=== PATIENT | male | born 1945 | race Two or more races ===

== ENCOUNTER 2024-10-27 16:02 | Inpatient (IN) | payer MEDICARE, MEDICAID, SELFPAY ==
[2024-10-27] VITALS (41 sets, daily range): BP systolic 81–170; BP diastolic 49–101; PULSE 50–72; RESP 14–26; TEMP 34.7–35.4; O2SAT 96–100; BMI 20.3
[2024-10-27] MEDS: NALOXONE INJ 1 MG/ML SYRINGE 2 ML 2 MG (16:08)
[2024-10-27] MEDS: NALOXONE INJ 1 MG/ML SYRINGE 2 ML 2 MG IV ×2 (16:10→16:14)
[2024-10-27] MEDS: SODIUM CHLORIDE 0.9% 1000 ML 1,000 ML 125 ML IV (16:15)
--- NOTE | 2024-10-27 16:18 | PD.EDAMS ---
Altered Mental Status RME/HPI General Chief Complaint: Altered Mental Status Stated Complaint: ALTERED Time Seen by Provider: 10/27/24 16:19 Arrival date/time: 10/27/24 16:02 RME / HPI RME / HPI narrative: DR. ROCA MAIN ED EVALUATION: 78 year old male with past medical history significant for diabetes, kidney disease presents to the Emergency Department [facility] from [facility] with complaint of altered mental status. Per EMS, patient's blood glucose was 40 at the facility an then they gave D10 at 1545 hours and then glucagon at 1550 hours and they brought the blood glucose to 238. Patient also had pinpoint pupils and EMS gave a total of 4 mg of Narcan prior to arrival, with some response, some moaning, and then went out of it again. BP 106/64, RR at facility were 6 and shallow then placed on 15 L/min RR were 18 but still shallow and satting 96%. Code Status: Full code. Related Data Home Medications ?Medication ?Instructions ?Recorded ?Confirmed atorvastatin 40 mg tablet 40 mg PO HS 12/10/22 01/12/23 pantoprazole 20 mg tablet,delayed 20 mg PO QDAY 12/10/22 01/12/23 release acetaminophen 325 mg tablet 325 mg PO QID PRN Pain 12/11/22 01/12/23 albuterol sulfate 90 mcg/actuation 2 puff inhalation QID PRN sob 12/11/22 01/12/23 aerosol inhaler (ProAir HFA) amino acids-protein hydrolysate 15 30 ea PO QDAY 12/11/22 01/12/23 gram-100 kcal/30 mL oral liquid pkt (Pro-Stat Sugar Free) benzonatate 100 mg capsule 100 mg PO TID PRN Cough 12/11/22 01/12/23 camphor 3.1 %-methyl salicylate 10 1 patch topical TID PRN Pain 12/11/22 01/12/23 %-menthol 6 % topical patch (Salonpas) clopidogrel 75 mg tablet 75 mg PO QDAY 12/11/22 01/12/23 doxazosin 2 mg tablet 2 mg PO HS 12/11/22 01/12/23 insulin aspart U-100 100 unit/mL 1 sliding scale dose subcut 12/11/22 01/12/23 subcutaneous solution (Novolog USEASDIRECTD U-100 Insulin aspart) metoclopramide HCl 5 mg tablet 5 mg PO BID 12/11/22 01/12/23 multivitamin with minerals 1 tab PO QDAY 12/11/22 01/12/23 pregabalin 150 mg capsule 150 mg PO TID 12/11/22 01/12/23 sennosides 8.6 mg tablet 8.6 mg PO QDAY 12/11/22 01/12/23 amlodipine 10 mg tablet 10 mg PO QDAY 01/12/23 01/12/23 megestrol 400 mg/10 mL (40 mg/mL) 200 mg PO BID 01/12/23 01/12/23 oral suspension Previous Rx's ?Medication ?Instructions ?Recorded ferrous sulfate 325 mg (65 mg 325 mg PO QDAY #30 tabs 12/31/22 iron) tablet losartan 25 mg tablet 25 mg PO QDAY #30 tabs 12/31/22 cephalexin 500 mg capsule 500 mg PO BID #10 caps 10/24/23 cephalexin 500 mg capsule 500 mg PO BID #10 caps 10/24/23 Allergies Allergy/AdvReac Type Severity Reaction Status Date / Time No Known Allergies Allergy Unverified 09/03/22 08:20 Review of Systems Review of Systems ROS Unobtainable: unobtainable due to mental status Past Medical History Past Medical History NEUROLOGIC: Positive Neurological Disorders, Peripheral Neuropathy, Subdural Hematoma, Head Trauma and Traumatic Brain Injury CARDIAC: Positive Cardiac Disorders, Atherosclerotic Heart Disease, Peripheral Vascular Disease, Hypercholesterolemia, Congestive Heart Failure and Hypertension RESPIRATORY: Positive Asthma and Pneumonia GASTROINTESTINAL: Positive Gastrointestinal Disorders and Gastroesophageal Reflux Disease GENITOURINARY: Positive Genitourinary Disorders, Renal Disease and Benign Prostatic Hyperplasia MUSCULOSKELETAL: Positive Musculoskeletal Disorders, Arthritis, Rheumatoid Arthritis, Fractures and Osteomyelitis ENT: Positive Head Trauma ENDOCRINE: Positive Endocrine Disorders and Diabetes Mellitus Type 2 PSYCHO/SOCIAL: Positive Depression and Anxiety OTHER HISTORY: Positive Shingles and Falls Family History FAMILY HISTORY: Positive Family Gastrointestinal Problems and Family Cancer Social History SMOKING STATUS: Unknown if ever smoked SECOND HAND EXPOSURE: No SUBSTANCE USE: does not use 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 MMM. pinpoint pupils, clear conjunctiva, oropharynx clear. NECK: Supple without lymphadenopathy. HEART: Normal rate and regular rhythm, normal S1/S1, no m/r/g LUNGS: breathing spontaneously but respirations are slow and shallow ABDOMEN: Soft, nontender, nondistended with good bowel sounds heard. BACK: No midline C/T/L spine pain or deformity, No CVAT, no obvious deformity. EXTREMITIES: Without cyanosis, clubbing or edema. MUSCULOSKELETAL: no deformities NEUROLOGICAL: altered mentation Skin: Cold and diaphoretic without any rash. Course Course Course Narrative: 1713: I called Jaleesa Morrell, his , and her son translated and patient is a full code. Quality Measures none Orders Category Date Time Status EKG (ED ONLY) *Do not use* NOW Care 10/27/24 16:[address] head/brain wo con Stat Exams 10/27/24 16:21 Completed EKG (ED Only) Stat Exams 10/27/24 16:21 Draft XR chest 1V Stat Exams 10/27/24 16:21 Ordered ABG [Arterial Blood Gas] Routine Lab 10/27/24 18:30 Ordered Acetaminophen Stat Lab 10/27/24 16:50 Completed Alcohol, Blood Medical Stat Lab 10/27/24 16:50 Completed CBC Stat Lab 10/27/24 16:50 Completed CMP [Comprehensive Metabolic Panel] Stat Lab 10/27/24 16:50 Completed Drug Screen,Urine Stat Lab 10/27/24 16:21 Ordered Lactate (Lactic Acid) Stat Lab 10/27/24 16:50 Completed Procalcitonin Stat Lab 10/27/24 16:50 Completed Sputum Culture and Gram Stain Stat Lab 10/27/24 18:12 Ordered Troponin I Stat Lab 10/27/24 16:50 Completed Urinalysis Stat Lab 10/27/24 16:21 Ordered Dextrose 5%-Water [D5w] 498 ml Med 10/27/24 16:10 Discontinued NALOXONE INJ (Syringe) [Narcan Inj (Syringe)] 2 mg IV 10 mls/hr Dextrose 5%-Water [D5w] 498 ml Med 10/27/24 16:12 Discontinued NALOXONE INJ (Syringe) [Narcan Inj (Syringe)] 2 mg IV 10 mls/hr Dextrose 5%-Water [D5w] 498 ml Med 10/27/24 16:30 Active NALOXONE INJ (Syringe) [Narcan Inj (Syringe)] 2 mg IV 10 mls/hr Etomidate Inj [Amidate Inj] Med 10/27/24 17:38 Discontinued 20 mg IV X1 ONE NALOXONE INJ (Syringe) [Narcan Inj (Syringe)] Med 10/27/24 16:05 Discontinued 2 mg .ROUTE .STK-MED ONE NALOXONE INJ (Syringe) [Narcan Inj (Syringe)] Med 10/27/24 16:08 Discontinued 2 mg IV X1 ONE NALOXONE INJ (Syringe) [Narcan Inj (Syringe)] Med 10/27/24 16:10 Discontinued 2 mg IV X1 ONE NALOXONE INJ (Syringe) [Narcan Inj (Syringe)] Med 10/27/24 17:10 Discontinued 6 mg IV X1 ONE Propofol 1,000 mg Ivpb [Diprivan Ivpb] Med 10/27/24 18:15 Active 1,000 mg in 100 ml IV 5 mcg/kg/min Sodium Chloride 0.9% 1000 ml [Ns] 1,000 ml Med 10/27/24 16:20 Active IV 125 mls/hr Succinylcholine Inj [Anectine Inj] Med 10/27/24 17:38 Discontinued 136 mg IV X1 ONE fentaNYL 2,500 MCG/250 ML BAG [Sublimaze Inj 2,500 MCG/ Med 10/27/24 18:16 Active 250 ML BAG] 2,500 mcg in 250 ml IV 25 mcg/hr Sputum Induction PRN RT 10/27/24 18:15 Ordered Volume Ventilator Stat RT 10/27/24 Active Vital Signs Vital signs: Vital Signs Temperature 94.5 F L 10/27/24 17:30 Pulse Rate 51 L 10/27/24 17:30 Respiratory Rate 15 10/27/24 17:30 Blood Pressure 94/54 L 10/27/24 17:30 Pulse Oximetry (%) 100 10/27/24 17:30 Oxygen Delivery Method Oxy Mask 10/27/24 17:30 Oxygen Flow Rate 15 10/27/24 17:30 Procedures -ED EKG Interpretation #1: Date of EK10/27/24 Time of EK:22 Rate: 51 Interpretation: Interpreted by me Additional EKG comment: sinus bradycardia, rate 51, normal intervals, normal axis, no acute ST-T wave changes. Altered Mental Status MDM Narrative MDM Narrative:: Mr. Morrell presents to the emergency department with altered mental status, hypothermia, and hypoglycemia. He has borderline stable vital signs were [id number] he appears to be a bit low, bradycardic, low blood pressure, and bradypnea. He also presents with pinpoint pupils. care home MAR is significant for a dose of Lyrica today, and no use of his narcotics for over a month. Patient was given dextrose supplementation and Narcan twice en route with slight improvement in mental status to where he would spontaneously moan. There is still no spontaneous opening of his eyes. Here he does the same with high doses of Narcan 4 mg, 6 mg at a time, he does have some rise in his vital signs including normalization's of his bradypnea, appears to be more arousable to deep pain, however is not spontaneously awake. As he does manage his vital signs, workup was initiated including head CT, basic labs. There appears to be several chronic findings such as a chronic hygroma on his head CT, chronic renal insufficiency, but no acute findings such as sepsis, severe dehydration, acute kidney injury, or metabolic abnormality. He is encephalopathic however it is unclear whether or not this is toxic, metabolic, or even structural. he has response to Narcan is equivocal as well and not reliable as a stabilizing mechanism for him. Therefore given his fragile state, critically derangement of status, case was discussed at length with family members, investment banking analyst with the agreements that it would be best at this point due to stabilize over the night on life support including intubation, and any pressure support. This will give time for the Lyrica to metabolize, or any other medicines he may be taking, while additional workup was pursued. Patient was intubated with the ICU resident under my supervision without complication. Patient was admitted to the ICU in guarded condition. I, Erma Hutchinson, am scribing for and in the presence of Dr. Roca. Patient data External records reviewed:: [facility] previous records (Reviewed last ED visit dated 12/17/23, discharged with the following: vomiting) Clinical information provided by:: EMS Social determinants that could affect healthcare access:: none Patient has the following chronic illnesses:: Diabetes, kidney disease Code Status: Full code How is presenting disease/condition affected by chronic disease/condition?: exacerbated by Evaluation data The following diagnostics were reviewed and interpreted by me:: lab results, radiology exam(s) and EKG tracing(s) Lab and/or radiology exams considered but not ordered:: none Interpretation Summary: Procedure(s): CT head/brain wo con Accession Number(s): [id number] cc: Miguel Roca MD; Lm Grimaldo MD~ Examination: CT brain head without contrast. 2-D sagittal coronal reconstructions Date and time of exam:October 27, 2024 1632 hrs. Comparison December 16, 2023 Indications: Onset altered mental status today CTDI: vol (mGy):51.8 DLP: (mGycm):1033 Technique: Multiple CT axial sections of the brain have been obtained, 5 mm slice thickness. Contrast has not been administered. 2-D sagittal, coronal reconstructions have been obtained Low dose protocols were performed. One or more of the following dose reduction techniques were used; automated exposure control, adjustment of the mA and/or KV according to patient size, use of iterative reconstruction technique. Findings: No significant ventricular enlargement. Again noted chronic subdural hygromas compared with December 16, 2023, slightly more prominent left frontal hygroma, 15 mm in thickness at the level of the frontal horns on the left compared to 11 mm in thickness on December 16, 2023 Intra-axial or extra-axial hemorrhage density is not seen. No mass effect or midline shift Basal cisterns are not remarkable. Fourth ventricle is midline. Right frontal paul hole Impression: No interval acute hemorrhage, mass effect or midline shift The left chronic frontal subdural hygroma has increased in size compared with December 24, 2023, clinical correlation advised Dictated By: Lm Grimaldo MD Medications / Prescriptions Medications or Prescriptions considered but not ordered:: none Medication administrations:: Medication Administration History Naloxone HCl 2 mg/ Dextrose 500 mls @ 10 mls/hr IV .Q24H JUAN Stop: 11/26/24 16:29 Sodium Chloride (Ns) 1,000 mls @ 125 mls/hr IV .Q8H [facility] Stop: 11/26/24 16:19 Last Admin: 10/27/24 16:15 Dose: 125 mls/hr Documented By: ROCIO Propofol (Diprivan Ivpb) 1,000 mg in 100 mls @ 2.041 mls/hr IV .Q24H PRN; Protocol PRN Reason: PER PROTOCOL Stop: 11/26/24 18:14 Fentanyl Citrate (Sublimaze Inj 2,500 Mcg/250 Ml Bag) 2,500 mcg in 250 mls @ 2.5 mls/hr IV .Q24H PRN; Protocol PRN Reason: PER PROTOCOL Stop: 11/01/24 18:15 Discontinued Medications Etomidate (Etomidate Inj 2 Mg/Ml Vial 10 Ml) 20 mg 0.3 mg/kg (20 mg) IV X1 ONE Stop: 10/27/24 17:39 Last Admin: 10/27/24 17:59 Dose: 20 mg Documented By: ROCIO Naloxone HCl 2 mg/ Dextrose 500 mls @ 10 mls/hr IV .Q24H [facility] Stop: 11/26/24 16:09 Naloxone HCl 2 mg/ Dextrose 500 mls @ 10 mls/hr IV .Q24H [facility] Stop: 11/26/24 16:11 Naloxone HCl (Naloxone Inj 1 Mg/Ml Syringe 2 Ml) Confirm Administered Dose 2 mg .ROUTE .STK-MED ONE Stop: 10/27/24 16:06 Last Admin: 10/27/24 16:08 Dose: 2 mg Documented By: ROCIO Naloxone HCl (Naloxone Inj 1 Mg/Ml Syringe 2 Ml) 6 mg IV X1 ONE Stop: 10/27/24 17:11 Last Admin: 10/27/24 17:18 Dose: 6 mg Documented By: ROCIO Naloxone HCl (Naloxone Inj 1 Mg/Ml Syringe 2 Ml) 2 mg IV X1 ONE Stop: 10/27/24 16:09 Last Admin: 10/27/24 16:10 Dose: 2 mg Documented By: ROCIO Naloxone HCl (Naloxone Inj 1 Mg/Ml Syringe 2 Ml) 2 mg IV X1 ONE Stop: 10/27/24 16:11 Last Admin: 10/27/24 16:14 Dose: 2 mg Documented By: ROCIO Succinylcholine Chloride (Succinylcholine Inj 20 Mg/Ml Vial 10 Ml) 136 mg 2 mg/kg (136 mg) IV X1 ONE Stop: 10/27/24 17:39 Last Admin: 10/27/24 17:59 Dose: 136 mg Documented By: ROCIO see above Consultations Consultation(s) initiated? (list below): Yes Consultation #1 (Physician, Specialty, Details): Dr. Lowe, investment banking analyst, discussed case HPI, PMHx, lab, radiology results and/or management. Given negative workup, persistent altered mental status, with equivocal response to Narcan, recommends intubation for airway protection and will admit ICU for further evaluation and management. Time: 17:38 Diagnosis Differential diagnosis altered mental status: altered mental status, hypoglycemia, subarachnoid hemorrhage and sepsis Most likely diagnosis given after review of the tests above:: AMS Hypoglycemia Hypothermia Admission Indicated Admission indicated?: indicated Admission Request Was there a request for admission?: Yes Admission Attestation Admission request attestation: Discussed case with [Dr. Lowe] from investment banking analyst service regarding admission. Discussed patients ED course, exam findings, labs, and radiology results. The investment banking analyst/financial reporting advisor [agrees] to accept the patient for admission. Disposition Plan Disposition Plan: Admit Critical Care Time Critical Care Time Critical Care Time: Yes Total Critical Care Time (min.): 45 Attestation: The high probability of sudden, clinically significant deterioration in the patient?s condition required the highest level of my preparedness to intervene urgently. The services I provided to this patient were to treat and/or prevent clinically significant deterioration. Services included the following: chart data review, reviewing nursing notes and/or old charts, documentation time, client support consultant collaboration regarding findings and treatment options, medication orders and management, direct patient care, vital sign assessments and ordering, interpreting and reviewing diagnostic studies and lab tests. Aggregate critical care time includes only time during which I was engaged in work directly related to the patient?s care, as described above, whether at bedside or elsewhere in the Emergency Department. It did not include time spent performing other reported procedures or the services of residents, students, nurses or physician assistants. Discharge Plan Plan Patient Disposition: Admit Acute Care w/in Hospital Prescriptions/Referrals Prescriptions/Med Rec: No Action atorvastatin 40 mg tablet 40 mg PO HS Patient Comments: TAKE ONE TABLET BY MOUTH AT BEDTIME FOR CHOLESTEROL pantoprazole 20 mg tablet,delayed release (DR/EC) 20 mg PO QDAY Patient Comments: TAKE ONE TABLET BY MOUTH EVERY DAY HEARTBURN GASTRIC ACIDITY acetaminophen 325 mg Tablet 325 mg PO QID PRN (Reason: Pain) clopidogrel 75 mg Tablet 75 mg PO QDAY metoclopramide HCl 5 mg Tablet 5 mg PO BID benzonatate 100 mg Capsule 100 mg PO TID PRN (Reason: Cough) multivitamin with minerals Tablet 1 tab PO QDAY doxazosin 2 mg Tablet 2 mg PO HS insulin aspart U-100 [Novolog U-100 Insulin aspart] 100 unit/mL Solution 1 sliding scale dose SUBCUT USEASDIRECTD pregabalin 150 mg Capsule 150 mg PO TID sennosides 8.6 mg Tablet 8.6 mg PO QDAY albuterol sulfate [ProAir HFA] 90 mcg/actuation Hfa Aerosol Inhaler 2 puff INHALATION QID PRN (Reason: sob) Pro-Stat Sugar Free 15 gram- 100 kcal/30 mL Liquid In Packet 30 ea PO QDAY Salonpas 3.1-10-6 % Adhesive Patch,Medicated 1 patch TOPICAL TID PRN (Reason: Pain) Rx Instructions: may leave on area for up to 8 hrs/LOWER BACK losartan 25 mg tablet 25 mg PO QDAY Qty: 30 0RF ferrous sulfate 325 mg (65 mg iron) tablet 325 mg PO QDAY Qty: 30 0RF megestrol 400 mg/10 mL (40 mg/mL) Suspension 200 mg PO BID amlodipine 10 mg Tablet 10 mg PO QDAY cephalexin 500 mg capsule 500 mg PO BID Qty: 10 0RF cephalexin 500 mg capsule 500 mg PO BID Qty: 10 0RF Problem List Clinical Impression: AMS (altered mental status), Hypoglycemia, Hypothermia Patient/Caregiver Discharge Instructions Print Language: Bulgarian Stand Alone Forms: [facility] Award Info., Patient Portal Info Letter
--- NOTE | 2024-10-27 16:21 | EKG_ITS ---
[facility] Test Date: 2024-10-27 Pat Name: JOEY Ernandezpartment: Room: - Gender: Male Consumer Analyst: : 1945 Requested By: Miguel Reyez Order Number: [id number] Reading MD: Miguel Reyez Measurements Intervals [place] Rate: 51 P: 121 SD: 155 QRS: 107 QRSD: 112 T: 71 QT: 477 QTc: 442 Interpretive Statements SINUS BRADYCARDIA LATERAL MYOCARDIAL INFARCTION , OF INDETERMINATE AGE [40+ ms Q WAVE AND/OR ST/T ABNORMALITY IN I/aVL/V5/V6] Compared to ECG 12/22/2022 02:22:17 Myocardial infarct finding now present Sinus rhythm no longer present Right-axis deviation no longer present T-wave abnormality no longer present Possible ischemia no longer present /store/S0/[id number]/ecg/[id number].pdf
--- NOTE | 2024-10-27 16:21 | XR_ITS ---
Examination: CT brain head without contrast. 2-D sagittal coronal reconstructions Date and time of exam:October 27, 2024 1632 hrs. Comparison December 16, 2023 Indications: Onset altered mental status today CTDI: vol (mGy):51.8 DLP: (mGycm):1033 Technique: Multiple CT axial sections of the brain have been obtained, 5 mm slice thickness. Contrast has not been administered. 2-D sagittal, coronal reconstructions have been obtained Low dose protocols were performed. One or more of the following dose reduction techniques were used; automated exposure control, adjustment of the mA and/or KV according to patient size, use of iterative reconstruction technique. Findings: No significant ventricular enlargement. Again noted chronic subdural hygromas compared with December 16, 2023, slightly more prominent left frontal hygroma, 15 mm in thickness at the level of the frontal horns on the left compared to 11 mm in thickness on December 16, 2023 Intra-axial or extra-axial hemorrhage density is not seen. No mass effect or midline shift Basal cisterns are not remarkable. Fourth ventricle is midline. Right frontal paul hole Impression: No interval acute hemorrhage, mass effect or midline shift The left chronic frontal subdural hygroma has increased in size compared with December 24, 2023, clinical correlation advised
[2024-10-27 16:58] LABS: Lactate (Lactic Acid) 0.7 mMol/L (0.4-2.0)
[2024-10-27 17:00] LABS: Basophils % (Auto) 0 % (0-2.5); Eosinophils # (Auto) 0.2 Thou/mm3 (0.0-0.5); Eosinophils % (Auto) 2 % (0-10); Hematocrit 28.3 % (41.0-53.0); Hemoglobin 9.6 g/dL (13.5-16.0); Immature Granulocytes % (Auto) 1 % (0-0); Immature Granulocytes Auto 0.08 Thou/mm3 (0.00-0.00); Lymphocytes % (Auto) 9 % (10-50); Mean Corpuscular HGB Conc 33.9 g/dl (31.0-37.0); Mean Corpuscular Hemoglobin 28.5 pg (25.0-35.0); Mean Corpuscular Volume 84 fL (80-100); Monocytes # (Auto) 0.6 Thou/mm3 (0.0-0.8); Monocytes % (Auto) 6 % (0-12); Neutrophils # (Auto) 8.7 Thou/mm3 (1.8-7.7); Neutrophils % (Auto) 83 % (37-80); Nucleated Red Blood Cell % 0 /100 WBC (0); Platelet Count 400 Thou/mm3 (140-440); RDW Standard Deviation 41.6 fL (35.1-43.9); Red Blood Count 3.37 Miln/mm3 (4.50-5.90); White Blood Count 10.4 Thou/mm3 (3.8-10.6)
[2024-10-27] MEDS: NALOXONE INJ 1 MG/ML SYRINGE 2 ML 6 MG IV (17:18)
[2024-10-27 17:27] LABS: Acetaminophen < 2.0 mcg/mL (10.0-20.0); Alanine Aminotransferase 20 U/L (10-49); Albumin, Serum 3.3 gm/dL (3.4-4.8); Albumin/Globulin Ratio 1.1 (1.2-2.2); Alcohol, Blood Medical < 3.0 mg/dL (0-10.0); Alkaline Phosphatase 78 U/L (46-116); Anion Gap 7 (7-16); Aspartate Amino Transferase 18 U/L (0-34); BUN/Creatinine Ratio 18 Ratio (12-20); Bilirubin,Total 0.2 mg/dL (0.3-1.2); Blood Urea Nitrogen 29 mg/dL (9-23); Calcium 8.4 mg/dL (8.3-10.6); Carbon Dioxide 22.4 mMol/L (20.0-31.0); Chloride 109 mMol/L (98-107); Creatinine (Component) 1.6 mg/dL (0.6-1.3); Estimated Creatinine Clearance 36.6 mL/min (>60); Glucose 183 mg/dL (74-106); Osmolality,Calculated 286 (275-295); Potassium 4.1 mMol/L (3.4-5.1); Procalcitonin 0.11 ng/ml (0.0-0.49); Sodium 138 mMol/L (136-145); Total Protein 6.3 gm/dL (5.7-8.2); Troponin I < 0.020 ng/mL (0.0-0.045); eGFR 44 See Note
[2024-10-27] MEDS: SUCCINYLCHOLINE INJ 20 MG/ML VIAL 10 ML 136 MG IV (17:59)
[2024-10-27] MEDS: ETOMIDATE INJ 2 MG/ML VIAL 10 ML 20 MG IV (17:59)
[2024-10-27] MEDS: PROPOFOL 1,000 MG IVPB 1,000 MG/100 ML VIAL 2.041 MG IV (18:20)
[2024-10-27 18:26] LABS: Collection Type, Urine Catheter; RBC,Urine 0 /hpf (0-3); Squamous Epithelial Cell,Urine 0 /hpf (0-5)
--- NOTE | 2024-10-27 18:29 | XR_ITS ---
Examination: AP chest single view Technique one AP portable semiupright chest single view Exam date and time: October 27, 2024 1841 hrs. Comparison December 16, 2023 Indications: Altered mental status today, hypoxic respiratory failure Findings: Endotracheal tube tip approximately 3.5 cm above pavel Orogastric tube is in the stomach, the tip below the level of the film No aspiration pneumonia No pulmonary edema Impression: No aspiration pneumonia Endotracheal tube tip 3.5 cm above pavel
[2024-10-27 18:35] LABS: Bilirubin,Urine Negative (Negative); Blood,Urine 1+ (Negative); Glucose, Urine Trace (Negative); Ketones,Urine Negative (Negative); Leukocyte Esterase,Urine Positive (Negative); Nitrite,Urine Negative (Negative); PH,Urine 5.5 (5.0-7.0); Protein,Urine 3+ (Neg - Trace); Specific Gravity,Urine 1.021 (1.001-1.035); Urobilinogen,Urine Negative mg/dL (0.0-1.0); WBC,Urine 845 /hpf (0-5)
[2024-10-27 18:36] LABS: Clarity,Urine Hazy (Clear/Hazy); Color,Urine Drk Yellow (Lt Yel-Yel)
[2024-10-27] MEDS: fentaNYL 2,500 MCG/250 ML BAG 2,500 MCG/250 ML BAG IV (18:38)
[2024-10-27 19:03] LABS: Amphetamine/Methamp Scrn,U Negative (Negative); Barbiturate Screen,Urine Negative (Negative); Benzodiazepines Screen,Urine Negative (Negative); Benzoylecgonine Screen, Ur Negative (Negative); Fentanyl Screen,Urine Negative (Negative); Opiate Screen,Urine Negative (Negative); THC Screen,Urine Negative (Negative)
[2024-10-27 19:19] LABS: Ammonia 23 uMol/L (11-32); Magnesium 1.9 mg/dL (1.6-2.6); Phosphorous 3.7 mg/dL (2.4-5.1)
--- NOTE | 2024-10-27 19:26 | PD.RESHP ---
Documentation for date of: 10/27/24 [facility] History of Present Illness History of present illness: Rk Morrell is a 78-year-old male with a past medical history of type 2 diabetes mellitus, hypertension, CAD, asthma, GERD, BPH, peripheral neuropathy, subdural hematoma status post surgical evacuation who presented to ED on 10/27 acute encephalopathy [facility]. Not responding to questions at bedside and underwent RSI and therefore history obtained from chart review. Per EMS, blood glucose in the 40s at facility and was given D10 which increased blood glucose to 238. Also noted to have pinpoint pupils and EMS gave total of 4 mg Narcan prior to arrival with some response but patient then became altered again. In ED, vitals showed hypothermia with temperature of 94.5 ?F, bradypnea, bradycardia, and hypotension as well as pinpoint pupils. Given additional doses of narcan without significant lasting response. Labs and imaging, including head CT unrevealing of acute underlying pathology. However, CT head did note increased size in subdural hygroma from 12/2023. Otherwise, BUN not significantly elevated, ammonia within normal limits, and u tox negative. Noted to have significant purulent-appearing material drain from urinary catheter which may be etiology of presentation. Given guarded state, decision was made to stabilize patient overnight in ICU via intubation and pressure support as needed. Review of Systems Review of Systems ROS Unobtainable: due to endotracheal tube Exam Vital Signs Temp Pulse Resp BP Pulse Ox O2 Del Method O2 Flow Rate 94.5 F L 59 L 17 142/70 H 100 Mechanical Ventilation 15 10/27/24 17:30 10/27/24 19:10/27/24 19:10/27/24 19:10/27/24 19:10/27/24 19:10/27/24 17:30 FiO2 100 10/27/24 19:00 Narrative Exam General: intubated, sedated, mechanically ventilated HEENT: pinpoint pupils, poor dentition, craniotomy scar noted Cardiovascular: regular rate and rhythm, S1/S2 present, no murmurs appreciated Pulmonary: clear to auscultation bilaterally, no rales/rhonchi/wheezes Abdominal: soft, non-tender, non-distended, no rebound/guarding, normal bowel sounds present Musculoskeletal: normal ROM, no peripheral edema Skin: scaly and erythematous rash noted around testicles and groin Neuro: GCS 3T Results: Labs 10/29/24 04:50 10/29/24 04:50 Labs: Short CBC 10/27/24 Range/Units 16:50 WBC 10.4 (3.8-10.6) Thou/mm3 Hgb 9.6 L (13.5-16.0) g/dL Hct 28.3 L (41.0-53.0) % Plt Count 400 (140-440) Thou/mm3 BMP 10/27/24 16:50 Sodium 138 Potassium 4.1 Chloride 109 H Carbon Dioxide 22.4 BUN 29 H Creatinine 1.6 H Glucose 183 H Calcium 8.4 Cardiac Enzymes 10/27/24 Range/Units 16:50 Troponin I < 0.020 (0.0-0.045) ng/mL Liver Function 10/27/24 Range/Units 16:50 Total Bilirubin 0.2 L (0.3-1.2) mg/dL AST 18 (0-34) U/L ALT 20 (10-49) U/L Alkaline Phosphatase 78 (46-116) U/L Albumin 3.3 L (3.4-4.8) gm/dL Urine 10/27/24 Range/Units 18:15 Urine Color Drk Yellow A (Lt Yel-Yel) Urine Clarity Hazy (Clear/Hazy) Urine pH 5.5 (5.0-7.0) Ur Specific [place] 1.021 (1.001-1.035) Urine Protein 3+ A (Neg - Trace) Urine Glucose (UA) Trace (Negative) Quality Measures Quality Measures none Advance care planning discussed with:: patient Medications Home Medications and Allergies Home Medications ?Medication ?Instructions ?Recorded ?Confirmed ?Type atorvastatin 40 mg tablet 40 mg PO HS 12/10/22 01/12/23 History pantoprazole 20 mg tablet,delayed 20 mg PO QDAY 12/10/22 01/12/23 History release acetaminophen 325 mg tablet 325 mg PO QID PRN Pain 12/11/22 01/12/23 History albuterol sulfate 90 mcg/actuation 2 puff inhalation QID PRN sob 12/11/22 01/12/23 History aerosol inhaler (ProAir HFA) amino acids-protein hydrolysate 15 30 ea PO QDAY 12/11/22 01/12/23 History gram-100 kcal/30 mL oral liquid pkt (Pro-Stat Sugar Free) benzonatate 100 mg capsule 100 mg PO TID PRN Cough 12/11/22 01/12/23 History camphor 3.1 %-methyl salicylate 10 1 patch topical TID PRN Pain 12/11/22 01/12/23 History %-menthol 6 % topical patch (Salonpas) clopidogrel 75 mg tablet 75 mg PO QDAY 12/11/22 01/12/23 History doxazosin 2 mg tablet 2 mg PO HS 12/11/22 01/12/23 History insulin aspart U-100 100 unit/mL 1 sliding scale dose subcut 12/11/22 01/12/23 History subcutaneous solution (Novolog USEASDIRECTD U-100 Insulin aspart) metoclopramide HCl 5 mg tablet 5 mg PO BID 12/11/22 01/12/23 History multivitamin with minerals 1 tab PO QDAY 12/11/22 01/12/23 History pregabalin 150 mg capsule 150 mg PO TID 12/11/22 01/12/23 History sennosides 8.6 mg tablet 8.6 mg PO QDAY 12/11/22 01/12/23 History amlodipine 10 mg tablet 10 mg PO QDAY 01/12/23 01/12/23 History megestrol 400 mg/10 mL (40 mg/mL) 200 mg PO BID 01/12/23 01/12/23 History oral suspension Allergies Allergy/AdvReac Type Severity Reaction Status Date / Time No Known Allergies Allergy Unverified 09/03/22 08:20 Visit Medications Acetaminophen (Acetaminophen 325 Mg Tablet) 650 mg PO Q4HR PRN PRN Reason: PAIN OR FEVER > 100.4 Stop: 11/26/24 18:15 Al Hydrox/Mg Hydrox/Simethicone (Mg Hyd/Al Hyd/Ora (Maalox Reg) Susp 30 Ml Udc) 30 ml PO Q4HR PRN PRN Reason: Heartburn or Upset Stomach Stop: 11/26/24 18:15 Dextrose (Dextrose 50%-Water Inj 50 Ml Syringe) 25 ml IV Q15MIN PRN PRN Reason: BG 50-70 responsive npo pt Stop: 11/26/24 18:19 Dextrose (Dextrose 50%-Water Inj 50 Ml Syringe) 50 ml IV Q15MIN PRN PRN Reason: BG <50 OR BG <70 & pt unresponsive Stop: 11/26/24 18:19 Glucagon (Glucagon Inj 1 Mg Vial) 1 mg IM Q15MIN PRN PRN Reason: BG <70, and no IV access Heparin Sodium (Porcine) (Heparin Sod Inj 5000 Unit/Ml Vial) 5,000 unit SC Q12HR [facility] Stop: 11/10/24 20:59 Naloxone HCl 2 mg/ Dextrose 500 mls @ 10 mls/hr IV .Q24H JUAN Stop: 11/26/24 16:29 Sodium Chloride (Ns) 1,000 mls @ 125 mls/hr IV .Q8H JUAN Stop: 11/26/24 16:19 Last Admin: 10/27/24 16:15 Dose: 125 mls/hr Propofol (Diprivan Ivpb) 1,000 mg in 100 mls @ 2.041 mls/hr IV .Q24H PRN; Protocol PRN Reason: PER PROTOCOL Stop: 11/26/24 18:14 Last Titration: 10/27/24 18:45 Dose: 25 mcg/kg/min, 10.206 mls/hr Fentanyl Citrate (Sublimaze Inj 2,500 Mcg/250 Ml Bag) 2,500 mcg in 250 mls @ 2.5 mls/hr IV .Q24H PRN; Protocol PRN Reason: PER PROTOCOL Stop: 11/01/24 18:15 Last Admin: 10/27/24 18:38 Dose: 25 mcg/hr, 2.5 mls/hr Lactated Ringer's (Lactated Ringers) 1,000 mls @ 999 mls/hr IV .Q1H1M ONE Stop: 10/27/24 20:20 Lactated Ringer's (Lactated Ringers) 1,000 mls @ 999 mls/hr IV .Q1H1M ONE Stop: 10/27/24 21:30 Ceftriaxone Sodium 2 gm/ (Sodium Chloride) 50 mls @ 100 mls/hr IV QDAY [facility] Stop: 11/03/24 19:21 Insulin Human Lispro (Insulin Lispro (Admelog) 1 Unit/0.01 Ml Unit) 0 unit SC Q6HR JUAN; Protocol Stop: 11/26/24 18:29 Last Admin: 10/27/24 18:42 Dose: Not Given Magnesium Hydroxide (Milk Of Magnesia Susp 30 Ml Udc) 30 ml PO QDAY PRN PRN Reason: CONSTIPATION Stop: 11/26/24 18:15 Nitroglycerin (Nitroglycerin 0.4 Mg Subl Btl #25) 0.4 mg SL Q5MIN PRN PRN Reason: CHEST PAIN Pantoprazole Sodium (Pantoprazole Inj 40 Mg Vial) 40 mg IVP QDAY JUAN Stop: 11/27/24 08:59 Discontinued Medications Etomidate (Etomidate Inj 2 Mg/Ml Vial 10 Ml) 20 mg 0.3 mg/kg (20 mg) IV X1 ONE Stop: 10/27/24 17:39 Last Admin: 10/27/24 17:59 Dose: 20 mg Naloxone HCl 2 mg/ Dextrose 500 mls @ 10 mls/hr IV .Q24H JUAN Stop: 11/26/24 16:09 Naloxone HCl 2 mg/ Dextrose 500 mls @ 10 mls/hr IV .Q24H JUAN Stop: 11/26/24 16:11 Naloxone HCl (Naloxone Inj 1 Mg/Ml Syringe 2 Ml) 6 mg IV X1 ONE Stop: 10/27/24 17:11 Last Admin: 10/27/24 17:18 Dose: 6 mg Naloxone HCl (Naloxone Inj 1 Mg/Ml Syringe 2 Ml) 2 mg IV X1 ONE Stop: 10/27/24 16:09 Last Admin: 10/27/24 16:10 Dose: 2 mg Naloxone HCl (Naloxone Inj 1 Mg/Ml Syringe 2 Ml) 2 mg IV X1 ONE Stop: 10/27/24 16:11 Last Admin: 10/27/24 16:14 Dose: 2 mg Succinylcholine Chloride (Succinylcholine Inj 20 Mg/Ml Vial 10 Ml) 136 mg 2 mg/kg (136 mg) IV X1 ONE Stop: 10/27/24 17:39 Last Admin: 10/27/24 17:59 Dose: 136 mg Assessment & Plan Plan Rk Sage is a 78-year-old male with a past medical history of type 2 diabetes mellitus, hypertension, CAD, asthma, GERD, BPH, peripheral neuropathy, subdural hematoma status post surgical evacuation who presented to ED on 10/27 acute encephalopathy [facility] and admitted to ICU after RSI in ED. Neurological #Acute encephalopathy, toxic (? UTI) versus metabolic vs intracranial Hypothermic with initial temp of 94.5 ?F requiring Nish hugger, no leukocytosis. Heart rate and respiratory rate within normal limits. CT head negative for acute interval hemorrhage, mass effect or midline shift. However, chronic left frontal subdural hygroma noted to increase in size compared to CT head 12/24/2023. CXR negative for acute cardiopulmonary processes. BUN less than 100, ammonia WNL. [place] drained purulent material with UA showing 845 WBC, LE positive, no bacteria. ? Ceftriaxone 2 g IV daily ? Follow-up urine culture #Sedated on fentanyl or propofol drip ? RASS goal of -2 Cardiovascular No acute/active disease Pulmonary #Intubated mechanically ventilated for neuroprotective measures ? Vent settings: A/CMV, Vt 425, RR 16, PEEP 5, FiO2 75% Gastrointestinal No acute/active disease Renal/Urological #? Urinary tract infection UA: Dark yellow-colored urine, 3+ protein, 1+ blood, LE positive, 845 WBC, no bacteria Significant purulent material drained after placement of [place] Noted history of UA with significant pyuria, however previous urine cultures without significant growth ? Ceftriaxone 2 g IV daily ? Follow-up urine culture #CKD stage IIIb ? Avoid nephrotoxic agents and renally dose medications Heme/Onc #Chronic normocytic anemia, in setting of CKD No signs of acute/active bleeding ? Continue to monitor Endocine #History of insulin-dependent diabetes mellitus ? SSI every 6 hours ? Follow-up med rec for home insulin regimen Infectious disease #? Urinary tract infection SIRS 1/ with temp 94.5 ?F, however given purulent material from [place] and acute encephalopathy, will give 2 L IVF bolus and start maintenance fluids. ? Ceftriaxone and follow-up urine cultures as above ? 1 L LR bolus x 2, followed by maintenance IVF Hospital management: Disposition: intubated and mechanically ventilated in ICU Fluids: 2 L LR boluses followed by maintenance LR Drips: fentanyl and propofol Diet: NPO Lines: peripheral IV, ET tube, OG tube DVT prophylaxis: heparin SC BID GI prophylaxis: pantoprazole IV daily [place]: placed CODE STATUS: full code ----- Plan discussed with attending physician Dr. Chrissy Agosto MD PGY-1 Internal Medicine Attending Provider Attestation/Addendum Patient not seen on this date of service. I was contacted by emergency room department physician as well as above resident and agree with plan of care as documented. I remain available overnight for any needs and will see the patient tomorrow to assume care.
--- NOTE | 2024-10-27 19:28 | PD.RESPROC ---
Procedures Procedure Date / Time 10/27/241927 Intubation Indication(s): other (neuroprotective intubation) Informed consent obtained: obtained from surrogate decision maker Time out done, and the following verified: correct patient and procedure Sedative: etomidate Mg given: 20 Paralytic: succinylcholine Mg given: 136 Laryngoscope: fiber optic video scope ET tube size: 7.5 Tube placement confirmation: visualized tube passing through cords, equal breath sounds bilaterally, no breath sounds over epigastrium and confirmation by capnometry Patient tolerated procedure: well EBL(ml): 0 Intubation complications: none Additional comments: The patient was placed on a cardiac cath lab manager including continuous pulse oximetry. Patient received 20 mg of etomidate for induction and 136 mg of succinylcholine for adequate paralysis. Using a fiberoptic video scope and a size 7.5 endotracheal tube with stylet, the patient was intubated on 1st attempt. The stylet was removed and cuff balloon was inflated. Appropriate endotracheal tube position was confirmed by direct visualization of vocal cord passage, fogging of the tube, CO2 colormetric indicator and symmetric breath sounds. The tube was secured at 23 cm at the gums. Post intubation chest x-ray showed ET tip 3.5 cm above pavel.
[2024-10-27] MEDS: RINGERS LACTATED 1000 ML 1,000 ML 999 ML IV ×2 (19:37→20:40)
[2024-10-27] MEDS: cefTRIAXone 2 GM in SODIUM CHLORIDE 0.9% (Popper) 50 ML IV (19:37)
[2024-10-27 20:14] LABS: Base Excess -4 (-3-3); HCO3 20 mEq/L (20-26); Inspired Oxygen, FIO2 75 %; O2 Saturation 101 % (91-98); PCO2 33 mmHg (32.0-48.0); PO2 333 mmHg (83-108); pH, Arterial 7.39 (7.35-7.45)
[2024-10-27 20:27] LABS: Allen Test Performed/OK; Puncture Site Right Radial
[2024-10-27] MEDS: HEPARIN SOD INJ 5000 UNIT/ML VIAL SC (21:46)
[2024-10-27] MEDS: RINGERS LACTATED 1000 ML 1,000 ML 100 ML IV (21:46)
[2024-10-28] VITALS (48 sets, daily range): BP systolic 97–179; BP diastolic 50–86; PULSE 55–72; RESP 12–92; TEMP 35.8–36.7; O2SAT 90–100; BMI 18.6
[2024-10-28] MEDS: SODIUM CHLORIDE 0.9% 1000 ML 1,000 ML 125 ML IV ×4 (00:22→23:57)
[2024-10-28] MEDS: PROPOFOL 1,000 MG IVPB 1,000 MG/100 ML VIAL 10.206 MG IV (02:44)
[2024-10-28 04:53] LABS: Base Excess -3 (-3-3); HCO3 21 mEq/L (20-26); Inspired Oxygen, FIO2 35 %; O2 Saturation 99 % (91-98); PCO2 31 mmHg (32.0-48.0); PO2 100 mmHg (83-108); pH, Arterial 7.43 (7.35-7.45)
[2024-10-28 04:55] LABS: Allen Test Performed/OK; Puncture Site Left Radial
[2024-10-28 06:15] LABS: Basophils % (Auto) 0 % (0-2.5); Eosinophils # (Auto) 0.1 Thou/mm3 (0.0-0.5); Eosinophils % (Auto) 1 % (0-10); Hematocrit 29.3 % (41.0-53.0); Hemoglobin 9.9 g/dL (13.5-16.0); Immature Granulocytes % (Auto) 1 % (0-0); Immature Granulocytes Auto 0.06 Thou/mm3 (0.00-0.00); Lymphocytes % (Auto) 17 % (10-50); Mean Corpuscular HGB Conc 33.8 g/dl (31.0-37.0); Mean Corpuscular Hemoglobin 28.4 pg (25.0-35.0); Mean Corpuscular Volume 84 fL (80-100); Monocytes # (Auto) 0.8 Thou/mm3 (0.0-0.8); Monocytes % (Auto) 7 % (0-12); Neutrophils # (Auto) 8.8 Thou/mm3 (1.8-7.7); Neutrophils % (Auto) 75 % (37-80); Nucleated Red Blood Cell % 0 /100 WBC (0); Platelet Count 369 Thou/mm3 (140-440); RDW Standard Deviation 41.3 fL (35.1-43.9); Red Blood Count 3.49 Miln/mm3 (4.50-5.90); White Blood Count 11.7 Thou/mm3 (3.8-10.6)
[2024-10-28 06:25] LABS: Alanine Aminotransferase 16 U/L (10-49); Albumin/Globulin Ratio 1.1 (1.2-2.2); Alkaline Phosphatase 75 U/L (46-116); Anion Gap 10 (7-16); Aspartate Amino Transferase 16 U/L (0-34); BUN/Creatinine Ratio 18 Ratio (12-20); Bilirubin,Total 0.3 mg/dL (0.3-1.2); Blood Urea Nitrogen 20 mg/dL (9-23); Calcium (Corrected) 8.8 mg/dL (8.5-10.1); Carbon Dioxide 19.6 mMol/L (20.0-31.0); Chloride 111 mMol/L (98-107); Creatinine (Component) 1.1 mg/dL (0.6-1.3); Estimated Creatinine Clearance 53.3 mL/min (>60); Globulin 2.8 gm/dL (2.3-3.5); Glucose 151 mg/dL (74-106); Osmolality,Calculated 286 (275-295); Potassium 3.9 mMol/L (3.4-5.1); Sodium 141 mMol/L (136-145); Total Protein 5.8 gm/dL (5.7-8.2); eGFR > 60 See Note
[2024-10-28 06:39] LABS: Glucose Estimated Average 214 mg/dL (80-131); Hemoglobin A1C 9.1 % Hgb (4.8-6.0)
[2024-10-28] MEDS: HEPARIN SOD INJ 5000 UNIT/ML VIAL SC ×2 (08:38→21:02)
[2024-10-28] MEDS: PANTOPRAZOLE INJ 40 MG VIAL IVP (08:38)
[2024-10-28] MEDS: DEXMEDETOMIDINE 200 MCG IVPB 200 MCG/50 ML BOTTLE IV ×2 (09:18→13:04)
[2024-10-28 12:05] LABS: Thyroid Stimulating Hormone 1.17 uIU/mL (0.55-4.78)
--- NOTE | 2024-10-28 13:51 | ESPR_ITS ---
Documentation for date of: 10/28/24 Subjective Subjective Interval history: Rk Morrell is a 78-year-old male with a past medical history of type 2 diabetes mellitus, hypertension, CAD, asthma, GERD, BPH, peripheral neuropathy, subdural hematoma status post surgical evacuation who presented to ED on 10/27 acute encephalopathy [facility]. Not responding to questions at bedside and underwent RSI and therefore history obtained from chart review. Per EMS, blood glucose in the 40s at facility and was given D10 which increased blood glucose to 238. Also noted to have pinpoint pupils and EMS gave total of 4 mg Narcan prior to arrival with some response but patient then became altered again. In ED, vitals showed hypothermia with temperature of 94.5 ?F, bradypnea, bradycardia, and hypotension as well as pinpoint pupils. Given additional doses of narcan without significant lasting response. Labs and imaging, including head CT unrevealing of acute underlying pathology. However, CT head did note increased size in subdural hygroma from 12/2023. Otherwise, BUN not significantly elevated, ammonia within normal limits, and u tox negative. Noted to have significant purulent-appearing material drain from urinary catheter which may be etiology of presentation. Given guarded state, decision was made to stabilize patient overnight in ICU via intubation and pressure support as needed. 10/28: Seen and examined at bedside. No acute overnight events. Patient noted to become agitated when weaning down on precedex, however, he appeared more alert and followed commands. Thus, sedation was turned off and patient successfully extubated. Given history of Enterococcus faecalis infection in past resistant to ceftriaxone, started on levofloxacin. Otherwise, will monitor patient for one more night in ICU. Noted to be anxious and in discomfort, scratching his groin area which was already noted to have scaly and erythematous rash. Placed zinc ointment over area and hydrocordisone PRN if no improvement. Exam Vital Signs Temp Pulse Resp BP Pulse Ox O2 Del Method O2 Flow Rate 96.4 F L 61 16 137/68 H 99 Mechanical Ventilation 15 10/28/24 07:00 10/28/24 10:14 10/27/24 20:12 10/28/24 10:14 10/28/24 10:14 10/27/24 19:49 10/27/24 17:30 FiO2 35 02/23/25 10:14 Narrative Exam Exam prior to extubation General: intubated, sedated, mechanically ventilated HEENT: pinpoint pupils, poor dentition, craniotomy scar noted Cardiovascular: regular rate and rhythm, S1/S2 present, no murmurs appreciated Pulmonary: clear to auscultation bilaterally, no rales/rhonchi/wheezes Abdominal: soft, non-tender, non-distended, no rebound/guarding, normal bowel sounds present Musculoskeletal: normal ROM, no peripheral edema Skin: scaly and erythematous rash noted around testicles and groin Neuro: GCS 3T Objective Labs 11/05/24 04:44 11/05/24 04:44 Labs: Laboratory Results - last 24 hr 10/27/24 10/27/24 10/27/24 16:50 18:15 18:51 WBC 10.4 RBC 3.37 L Hgb 9.6 L Hct 28.3 L MCV 84 MCH 28.5 MCHC 33.9 RDW Std Deviation 41.6 Plt Count 400 Neut % (Auto) 83 H Lymph % (Auto) 9 L [place] % (Auto) 6 Eos % (Auto) 2 Baso % (Auto) 0 Neut # (Auto) 8.7 H Lymph # (Auto) 1.0 [place] # (Auto) 0.6 Eos # (Auto) 0.2 Baso # (Auto) 0.0 Immature Gran # (Auto) 0.08 H Absolute Nucleated RBC 0.00 Immature Gran % 1 H Nucleated RBC % 0 Puncture Site ABG pH ABG pCO2 ABG pO2 ABG HCO3 ABG O2 Saturation ABG Base Excess FiO2 Sodium 138 Potassium 4.1 Chloride 109 H Carbon Dioxide 22.4 Anion Gap 7 BUN 29 H Creatinine 1.6 H Estim Creat Clear Calc 36.6 L eGFR 44 L BUN/Creatinine Ratio [address] Glu mg/dL Hemoglobin A1c Calculated Osmolality 286 Lactic Acid 0.7 Calcium 8.4 Corrected Calcium 9.0 Phosphorus 3.7 Magnesium 1.9 Total Bilirubin 0.2 L AST 18 ALT 20 Alkaline Phosphatase 78 Ammonia 23 Troponin I < 0.020 Total Protein 6.3 Albumin 3.3 L Globulin 3.0 Albumin/Globulin Ratio 1.1 L Procalcitonin 0.11 TSH Ur Collection Type Catheter Urine Color Drk Yellow A Urine Clarity Hazy Urine pH 5.5 Ur Specific [place] 1.021 Urine Protein 3+ A Urine Glucose (UA) Trace Urine Ketones Negative Urine Blood 1+ A Urine Nitrite Negative Urine Bilirubin Negative Urine Urobilinogen (Auto) Negative Ur Leukocyte Esterase Positive Urine RBC 0 Urine WBC 845 H Ur Squamous Epith Cells 0 Urine Bacteria None Urine Opiates Screen Negative Urine Fentanyl Screen Negative Acetaminophen < 2.0 L Ur Barbiturates Screen Negative U Amphetamin/Meth Scrn Negative U Benzodiazepines Scrn Negative U Cocaine Metab Screen Negative U Marijuana (THC) Screen Negative Ethyl Alcohol < 3.0 10/27/24 10/28/24 10/28/24 20:08 04:35 05:27 WBC 11.7 H RBC 3.49 L Hgb 9.9 L Hct 29.3 L MCV 84 MCH 28.4 MCHC 33.8 RDW Std Deviation 41.3 Plt Count 369 D Neut % (Auto) 75 Lymph % (Auto) 17 [place] % (Auto) 7 Eos % (Auto) 1 Baso % (Auto) 0 Neut # (Auto) 8.8 H Lymph # (Auto) 2.0 [place] # (Auto) 0.8 Eos # (Auto) 0.1 Baso # (Auto) 0.0 Immature Gran # (Auto) 0.06 H Absolute Nucleated RBC 0.00 Immature Gran % 1 H Nucleated RBC % 0 Puncture Site Right Radial Left Radial ABG pH 7.39 7.43 ABG pCO2 33 31 L ABG pO2 333 H 100 D ABG HCO3 20 21 ABG O2 Saturation 101 H 99 H ABG Base Excess -4 L -3 FiO2 75 35 Sodium 141 Potassium 3.9 Chloride 111 H Carbon Dioxide 19.6 L Anion Gap 10 BUN 20 Creatinine 1.1 D Estim Creat Clear Calc 53.3 L eGFR > 60 BUN/Creatinine Ratio [address]ucose [address] Glu mg/dL 214 H Hemoglobin A1c 9.1 H Calculated Osmolality 286 Lactic Acid Calcium 8.0 L Corrected Calcium 8.8 Phosphorus Magnesium Total Bilirubin 0.3 AST 16 ALT 16 Alkaline Phosphatase 75 Ammonia Troponin I Total Protein 5.8 Albumin 3.0 L Globulin 2.8 Albumin/Globulin Ratio 1.1 L Procalcitonin TSH 1.17 Ur Collection Type Urine Color Urine Clarity Urine pH Ur Specific [place] Urine Protein Urine Glucose (UA) Urine Ketones Urine Blood Urine Nitrite Urine Bilirubin Urine Urobilinogen (Auto) Ur Leukocyte Esterase Urine RBC Urine WBC Ur Squamous Epith Cells Urine Bacteria Urine Opiates Screen Urine Fentanyl Screen Acetaminophen Ur Barbiturates Screen U Amphetamin/Meth Scrn U Benzodiazepines Scrn U Cocaine Metab Screen U Marijuana (THC) Screen Ethyl Alcohol ABG Interpretation ABG results: 10/27/24 10/28/24 20:08 04:35 ABG pH 7.39 7.43 ABG pCO2 33 31 L ABG pO2 333 H 100 D ABG HCO3 20 21 ABG O2 Saturation 101 H 99 H ABG Base Excess -4 L -3 Quality Measures Quality Measures none Advance care planning discussed with:: patient, spouse and child Assessment & Plan Assessment Current Active Medications: Generic Name Dose Route Start Last Admin Trade Name Freq PRN Reason Stop Dose Admin Acetaminophen 650 mg 10/27/24 18:16 Acetaminophen 325 Mg Tablet PO 11/26/24 18:15 Q4HR PRN PAIN OR FEVER > 100.4 Al Hydrox/Mg Hydrox/Simethicone 30 ml 10/27/24 18:16 Mg Hyd/Al Hyd/Ora (Maalox Reg) Susp 30 Ml Udc PO 11/26/24 18:15 Q4HR PRN Heartburn or Upset Stomach Dextrose 25 ml 10/27/24 18:20 Dextrose 50%-Water Inj 50 Ml Syringe IV 11/26/24 18:19 Q15MIN PRN BG 50-70 responsive npo pt Dextrose 50 ml 10/27/24 18:20 Dextrose 50%-Water Inj 50 Ml Syringe IV 11/26/24 18:19 Q15MIN PRN BG <50 OR BG <70 & pt unresponsive Glucagon 1 mg 10/27/24 18:20 Glucagon Inj 1 Mg Vial IM Q15MIN PRN BG <70, and no IV access Heparin Sodium (Porcine) 5,000 unit 10/27/24 21:00 10/28/24 08:38 Heparin Sod Inj 5000 Unit/Ml Vial SC 11/10/24 20:59 5,000 unit Q12HR JUAN Administration Naloxone HCl 2 mg/ Dextrose 500 mls @ 10 mls/hr 10/27/24 16:30 10/27/24 21:34 IV 11/26/24 16:29 Not Given .Q24H JUAN Sodium Chloride 1,000 mls @ 125 mls/hr 10/27/24 16:20 10/28/24 08:39 Ns IV 11/26/24 16:19 125 mls/hr .Q8H JUAN Administration Fentanyl Citrate 2,500 mcg in 250 mls @ 2.5 mls/hr 10/27/24 18:16 10/28/24 09:50 Sublimaze Inj 2,500 Mcg/250 Ml Bag IV 11/01/24 18:15 0 mcg/hr .Q24H PRN 0 mls/hr PER PROTOCOL Titration Protocol 25 MCG/HR Ceftriaxone Sodium/Dextrose 2 gm in 50 mls @ 100 mls/hr 10/28/24 21:00 Rocephin/D5w 2gm IV 11/04/24 20:59 HS JUAN Dexmedetomidine/Sodium Chloride 200 mcg in 50 mls @ 3.11 mls/hr 10/28/24 09:34 10/28/24 13:04 Precedex Ivpb IV 11/27/24 09:33 0.2 mcg/kg/hr .Q16H5M PRN 3.11 mls/hr Per PROTOCOL Administration Protocol 0.2 MCG/KG/HR Insulin Human Lispro 0 unit 10/27/24 18:30 10/28/24 12:58 Insulin Lispro (Admelog) 1 Unit/0.01 Ml Unit SC 11/26/24 18:29 Not Given Q6HR [facility] Protocol Magnesium Hydroxide 30 ml 10/27/24 18:16 Milk Of Magnesia Susp 30 Ml Udc PO 11/26/24 18:15 QDAY PRN CONSTIPATION Nitroglycerin 0.4 mg 10/27/24 18:16 Nitroglycerin 0.4 Mg Subl Btl #25 SL Q5MIN PRN CHEST PAIN Pantoprazole Sodium 40 mg 10/28/24 09:00 10/28/24 08:38 Pantoprazole Inj 40 Mg Vial IVP 11/27/24 08:59 40 mg QDAY [facility] Administration Plan Rk Morrell is a 78-year-old male with a past medical history of type 2 diabetes mellitus, hypertension, CAD, asthma, GERD, BPH, peripheral neuropathy, subdural hematoma status post surgical evacuation who presented to ED on 10/27 acute encephalopathy [facility] and admitted to ICU after RSI in ED. Neurological #Acute encephalopathy, toxic (? UTI) versus metabolic vs intracranial Hypothermic with initial temp of 94.5 ?F requiring Nish hugger, no leukocytosis. Heart rate and respiratory rate within normal limits. CT head negative for acute interval hemorrhage, mass effect or midline shift. However, chronic left frontal subdural hygroma noted to increase in size compared to CT head 12/24/2023. CXR negative for acute cardiopulmonary processes. BUN less than 100, ammonia WNL. [place] drained purulent material with UA showing 845 WBC, LE positive, no bacteria. ? Ceftriaxone 2 g IV daily ? Follow-up urine culture #Sedated on fentanyl and precedex ? RASS goal of -2 ? Will keep patient sedated for today and reassess tomorrow Cardiovascular No acute/active disease Pulmonary #Intubated mechanically ventilated for neuroprotective measures ? Vent settings: A/CMV, Vt 425, RR 16, PEEP 5, FiO2 75% Gastrointestinal No acute/active disease Renal/Urological #? Urinary tract infection UA: Dark yellow-colored urine, 3+ protein, 1+ blood, LE positive, 845 WBC, no bacteria Significant purulent material drained after placement of [place] Noted history of UA with significant pyuria, however previous urine cultures without significant growth ? Ceftriaxone 2 g IV daily ? Follow-up urine culture #CKD stage IIIb ? Avoid nephrotoxic agents and renally dose medications Heme/Onc #Chronic normocytic anemia, in setting of CKD No signs of acute/active bleeding ? Continue to monitor Endocine #History of insulin-dependent diabetes mellitus ? SSI every 6 hours ? Follow-up med rec for home insulin regimen Infectious disease #? Urinary tract infection SIRS 1/ with temp 94.5 ?F, however given purulent material from [place] and acute encephalopathy, will give 2 L IVF bolus and start maintenance fluids. ? Ceftriaxone and follow-up urine cultures as above ? 1 L LR bolus x 2, followed by maintenance IVF Hospital management: Disposition: intubated and mechanically ventilated in ICU Fluids: 2 L LR boluses followed by maintenance LR Drips: fentanyl and propofol Diet: NPO Lines: peripheral IV, ET tube, OG tube DVT prophylaxis: heparin SC BID GI prophylaxis: pantoprazole IV daily [place]: placed CODE STATUS: full code ----- Plan discussed with attending physician Dr. Chrissy Agosto MD PGY-1 Internal Medicine Attending Provider Attestation/Addendum Patient seen and examined with above resident, Jordan Agosto MD. I agree with the findings, assessment, and plan of care as documented except for any differences below. Patient underwent SAT with ability to successfully wean from mechanical ventilation after spontaneous breathing trial. He was transitioned to high humidity/high flow nasal cannula. Which will slowly wean over the next 24 hours. Patient transitioned using Precedex, and we will plan to wean this off in the coming 24 hours as he was agitated on initial attempts during SAT. [place] catheter has been exchanged and patient remains on appropriate antibiotics with ceftriaxone for empiric coverage until culture data proves ability to narrow based on sensitivities. Patient remains afebrile with improving immune response. Patient's family updated on plan of care at bedside with continued plan for slow improvement in coming days. If he remains stable tomorrow can possibly transfer to medicine [facility] for ongoing management in anticipation of this. Total critical care time: Personally spent 40 minutes for review of physiologic parameters, Directed Plan of Care throughout the day, and counseling patient/family at bedside. This is exclusive of time spent teaching housestaff or performing separate billable procedures. Patient remains at high risk for further morbidity and mortality warranting ongoing monitoring care only available intensive care unit. Patient with acute hypoxic respiratory failure secondary to acute encephalopathy in the setting of severe sepsis from urinary tract infection.
[2024-10-28] MEDS: DEXMEDETOMIDINE 200 MCG IVPB 200 MCG/50 ML BOTTLE 15.55 MCG IV (20:36)
[2024-10-28] MEDS: DEXMEDETOMIDINE 200 MCG IVPB 200 MCG/50 ML BOTTLE 18.66 MCG IV (23:45)
[2024-10-29] VITALS (22 sets, daily range): BP systolic 117–186; BP diastolic 51–110; PULSE 55–85; RESP 14–95; TEMP 35.6–36.7; O2SAT 92–97; BMI 19.8; BMI 19.7
[2024-10-29] MEDS: DEXMEDETOMIDINE 200 MCG IVPB 200 MCG/50 ML BOTTLE 18.66 MCG IV (02:26)
[2024-10-29] MEDS: HALOPERIDOL LACT INJ 5 MG/ML VIAL 2.5 MG IV (05:28)
[2024-10-29] MEDS: INSULIN LISPRO (AdmeLOG) 1 UNIT/0.01 ML UNIT SC ×2 (05:38→18:35)
[2024-10-29 05:50] LABS: Basophils % (Auto) 0 % (0-2.5); Eosinophils # (Auto) 0.2 Thou/mm3 (0.0-0.5); Eosinophils % (Auto) 3 % (0-10); Hemoglobin 11.5 g/dL (13.5-16.0); Immature Granulocytes % (Auto) 1 % (0-0); Immature Granulocytes Auto 0.04 Thou/mm3 (0.00-0.00); Lymphocytes # (Auto) 2.1 Thou/mm3 (1.0-4.8); Lymphocytes % (Auto) 24 % (10-50); Mean Corpuscular HGB Conc 33.8 g/dl (31.0-37.0); Mean Corpuscular Hemoglobin 28.5 pg (25.0-35.0); Mean Corpuscular Volume 84 fL (80-100); Monocytes # (Auto) 0.6 Thou/mm3 (0.0-0.8); Monocytes % (Auto) 7 % (0-12); Neutrophils # (Auto) 5.8 Thou/mm3 (1.8-7.7); Neutrophils % (Auto) 66 % (37-80); Nucleated Red Blood Cell % 0 /100 WBC (0); Platelet Count 379 Thou/mm3 (140-440); RDW Standard Deviation 40.4 fL (35.1-43.9); Red Blood Count 4.04 Miln/mm3 (4.50-5.90); White Blood Count 8.7 Thou/mm3 (3.8-10.6)
[2024-10-29 06:01] LABS: Alanine Aminotransferase 15 U/L (10-49); Albumin, Serum 3.4 gm/dL (3.4-4.8); Albumin/Globulin Ratio 1.1 (1.2-2.2); Alkaline Phosphatase 87 U/L (46-116); Anion Gap 11 (7-16); Aspartate Amino Transferase 17 U/L (0-34); BUN/Creatinine Ratio 16 Ratio (12-20); Bilirubin,Total 0.5 mg/dL (0.3-1.2); Blood Urea Nitrogen 13 mg/dL (9-23); Calcium 8.4 mg/dL (8.3-10.6); Calcium (Corrected) 8.9 mg/dL (8.5-10.1); Carbon Dioxide 19.3 mMol/L (20.0-31.0); Chloride 110 mMol/L (98-107); Creatinine (Component) 0.8 mg/dL (0.6-1.3); Globulin 3.2 gm/dL (2.3-3.5); Glucose 185 mg/dL (74-106); Osmolality,Calculated 284 (275-295); Potassium 3.8 mMol/L (3.4-5.1); Sodium 140 mMol/L (136-145); Total Protein 6.6 gm/dL (5.7-8.2); eGFR > 60 See Note
[2024-10-29] MEDS: DEXMEDETOMIDINE 200 MCG IVPB 200 MCG/50 ML BOTTLE 15.55 MCG IV (07:49)
[2024-10-29] MEDS: PANTOPRAZOLE INJ 40 MG VIAL IVP (08:00)
[2024-10-29] MEDS: HEPARIN SOD INJ 5000 UNIT/ML VIAL SC ×2 (08:00→22:06)
[2024-10-29] MEDS: cefTRIAXone/D5w 2gm 2 GM/50 ML BAG IV (09:25)
[2024-10-29] MEDS: SODIUM CHLORIDE 0.9% 1000 ML 1,000 ML 125 ML IV (09:26)
--- NOTE | 2024-10-29 10:19 | PD.RESPRO ---
Documentation for date of: 10/29/24 Subjective Subjective Interval history: Rk Morrell is a 78-year-old male with a past medical history of type 2 diabetes mellitus, hypertension, CAD, asthma, GERD, BPH, peripheral neuropathy, subdural hematoma status post surgical evacuation who presented to ED on 10/27 acute encephalopathy [facility]. Not responding to questions at bedside and underwent RSI and therefore history obtained from chart review. Per EMS, blood glucose in the 40s at facility and was given D10 which increased blood glucose to 238. Also noted to have pinpoint pupils and EMS gave total of 4 mg Narcan prior to arrival with some response but patient then became altered again. In ED, vitals showed hypothermia with temperature of 94.5 ?F, bradypnea, bradycardia, and hypotension as well as pinpoint pupils. Given additional doses of narcan without significant lasting response. Labs and imaging, including head CT unrevealing of acute underlying pathology. However, CT head did note increased size in subdural hygroma from 12/2023. Otherwise, BUN not significantly elevated, ammonia within normal limits, and u tox negative. Noted to have significant purulent-appearing material drain from urinary catheter which may be etiology of presentation. Given guarded state, decision was made to stabilize patient overnight in ICU via intubation and pressure support as needed. 10/28: Seen and examined at bedside. No acute overnight events. Patient noted to become agitated when weaning down on precedex, however, he appeared more alert and followed commands. Thus, sedation was turned off and patient successfully extubated. Given history of Enterococcus faecalis infection in past resistant to ceftriaxone, started on levofloxacin. Otherwise, will monitor patient for one more night in ICU. Noted to be anxious and in discomfort, scratching his groin area which was already noted to have scaly and erythematous rash. Placed zinc ointment over area and hydrocordisone PRN if no improvement. 10/29: Seen and examined at bedside. No acute overnight events. Patient continues to be agitated but otherwise is alert and answering questions. Thus, stable to be downgraded to floors. Exam Vital Signs Temp Pulse Resp BP Pulse Ox O2 Del Method O2 Flow Rate 96.1 F L 69 20 159/75 H 93 L Nasal Cannula 2 10/29/24 08:00 10/29/24 09:00 10/29/24 09:00 10/29/24 09:00 10/29/24 09:00 10/29/24 09:00 10/29/24 09:00 FiO2 35 10/28/24 12:00 Narrative Exam General: alert, answers questions, moderately distressed due to pain HEENT: poor dentition, craniotomy scar noted Cardiovascular: regular rate and rhythm, S1/S2 present, no murmurs appreciated Pulmonary: clear to auscultation bilaterally, no rales/rhonchi/wheezes Abdominal: soft, non-tender, non-distended, no rebound/guarding, normal bowel sounds present Musculoskeletal: normal ROM, no peripheral edema Skin: scaly and erythematous rash noted around testicles and groin Neuro: CN II-XII intact, no focal deficits Objective Labs 10/31/24 05:16 10/31/24 05:16 Labs: Laboratory Results - last 24 hr 10/28/24 10/29/24 05:27 04:50 WBC 8.7 RBC 4.04 L Hgb 11.5 L Hct 34.0 L MCV 84 MCH 28.5 MCHC 33.8 RDW Std Deviation 40.4 Plt Count 379 Neut % (Auto) 66 Lymph % (Auto) 24 [place] % (Auto) 7 Eos % (Auto) 3 Baso % (Auto) 0 Neut # (Auto) 5.8 Lymph # (Auto) 2.1 [place] # (Auto) 0.6 Eos # (Auto) 0.2 Baso # (Auto) 0.0 Immature Gran # (Auto) 0.04 H Absolute Nucleated RBC 0.00 Immature Gran % 1 H Nucleated RBC % 0 Sodium 140 Potassium 3.8 Chloride 110 H Carbon Dioxide 19.3 L Anion Gap 11 BUN 13 Creatinine 0.8 Estim Creat Clear Calc 67.0 eGFR > 60 BUN/Creatinine Ratio 16 Glucose 185 H Calculated Osmolality 284 Calcium 8.4 Corrected Calcium 8.9 Total Bilirubin 0.5 AST 17 ALT 15 Alkaline Phosphatase 87 Total Protein 6.6 Albumin 3.4 Globulin 3.2 Albumin/Globulin Ratio 1.1 L TSH 1.17 ABG Interpretation ABG results: 10/27/24 10/28/24 20:08 04:35 ABG pH 7.39 7.43 ABG pCO2 33 31 L ABG pO2 333 H 100 D ABG HCO3 20 21 ABG O2 Saturation 101 H 99 H ABG Base Excess -4 L -3 Quality Measures Quality Measures none Advance care planning discussed with:: patient Assessment & Plan Assessment Current Active Medications: Generic Name Dose Route Start Last Admin Trade Name Freq PRN Reason Stop Dose Admin Acetaminophen 650 mg 10/27/24 18:16 Acetaminophen 325 Mg Tablet PO 11/26/24 18:15 Q4HR PRN PAIN OR FEVER > 100.4 Al Hydrox/Mg Hydrox/Simethicone 30 ml 10/27/24 18:16 Mg Hyd/Al Hyd/Ora (Maalox Reg) Susp 30 Ml Udc PO 11/26/24 18:15 Q4HR PRN Heartburn or Upset Stomach Dextrose 25 ml 10/27/24 18:20 Dextrose 50%-Water Inj 50 Ml Syringe IV 11/26/24 18:19 Q15MIN PRN BG 50-70 responsive npo pt Dextrose 50 ml 10/27/24 18:20 Dextrose 50%-Water Inj 50 Ml Syringe IV 11/26/24 18:19 Q15MIN PRN BG <50 OR BG <70 & pt unresponsive Glucagon 1 mg 10/27/24 18:20 Glucagon Inj 1 Mg Vial IM Q15MIN PRN BG <70, and no IV access Heparin Sodium (Porcine) 5,000 unit 10/27/24 21:00 10/29/24 08:00 Heparin Sod Inj 5000 Unit/Ml Vial SC 11/10/24 20:59 5,000 unit Q12HR JUAN Administration Hydralazine HCl 10 mg 10/29/24 03:24 Hydralazine Inj 20 Mg/Ml Vial IV 11/28/24 03:23 Q8HR PRN SBP>170/90 Sodium Chloride 1,000 mls @ 125 mls/hr 10/27/24 16:20 10/29/24 09:26 Ns IV 11/26/24 16:19 125 mls/hr .Q8H JUAN Administration Fentanyl Citrate 2,500 mcg in 250 mls @ 2.5 mls/hr 10/27/24 18:16 10/28/24 09:50 Sublimaze Inj 2,500 Mcg/250 Ml Bag IV 11/01/24 18:15 0 mcg/hr .Q24H PRN 0 mls/hr PER PROTOCOL Titration Protocol 25 MCG/HR Dexmedetomidine/Sodium Chloride 200 mcg in 50 mls @ 3.11 mls/hr 10/28/24 09:34 10/29/24 08:43 Precedex Ivpb IV 11/27/24 09:33 0 mcg/kg/hr .Q16H5M PRN 0 mls/hr Per PROTOCOL Titration Protocol 0.2 MCG/KG/HR Insulin Human Lispro 0 unit 10/27/24 18:30 10/29/24 05:38 Insulin Lispro (Admelog) 1 Unit/0.01 Ml Unit SC 11/26/24 18:29 1 unit Q6HR JUAN Administration Protocol Levofloxacin 250 mg 10/28/24 16:45 10/29/24 07:57 Levofloxacin 250 Mg Tablet PO 11/01/24 16:44 Not Given QDAY JUAN Magnesium Hydroxide 30 ml 10/27/24 18:16 Milk Of Magnesia Susp 30 Ml Udc PO 11/26/24 18:15 QDAY PRN CONSTIPATION Nitroglycerin 0.4 mg 10/27/24 18:16 Nitroglycerin 0.4 Mg Subl Btl #25 SL Q5MIN PRN CHEST PAIN Pantoprazole Sodium 40 mg 10/28/24 09:00 10/29/24 08:00 Pantoprazole Inj 40 Mg Vial IVP 11/27/24 08:59 40 mg QDAY JUAN Administration Plan Rk Morrell is a 78-year-old male with a past medical history of type 2 diabetes mellitus, hypertension, CAD, asthma, GERD, BPH, peripheral neuropathy, subdural hematoma status post surgical evacuation who presented to ED on 10/27 acute encephalopathy [facility] and admitted to ICU after RSI in ED. Neurological #Acute encephalopathy, toxic (? UTI) versus metabolic vs intracranial Hypothermic with initial temp of 94.5 ?F requiring Nish hugger, no leukocytosis. Heart rate and respiratory rate within normal limits. CT head negative for acute interval hemorrhage, mass effect or midline shift. However, chronic left frontal subdural hygroma noted to increase in size compared to CT head 12/24/2023. CXR negative for acute cardiopulmonary processes. BUN less than 100, ammonia WNL. [place] drained purulent material with UA showing 845 WBC, LE positive, no bacteria. ? Ceftriaxone 2 g IV today and start levofloxacin 250 mg IV starting tomorrow (10/30) ? Urine and sputum cultures negative Cardiovascular No acute/active disease Pulmonary #Previously intubated and mechanically ventilated for neuroprotective measures Gastrointestinal No acute/active disease Renal/Urological #? Urinary tract infection UA: Dark yellow-colored urine, 3+ protein, 1+ blood, LE positive, 845 WBC, no bacteria Significant purulent material drained after placement of [place] Noted history of UA with significant pyuria, however previous urine cultures without significant growth ? See neurological above #CKD stage IIIb ? Avoid nephrotoxic agents and renally dose medications Heme/Onc #Chronic normocytic anemia, in setting of CKD No signs of acute/active bleeding ? Continue to monitor Endocine #History of insulin-dependent diabetes mellitus ? SSI every 6 hours ? Follow-up med rec for home insulin regimen Infectious disease #? Urinary tract infection SIRS 09/08 with temp 94.5 ?F, however given purulent material from [place] and acute encephalopathy, will give 2 L IVF bolus and start maintenance fluids. ? Ceftriaxone 2 g IV today and start levofloxacin 250 mg IV starting tomorrow (10/30) ? Urine and sputum cultures negative Hospital management: Disposition: extubated and stable to be downgraded to floors Fluids: none Drips: none Diet: NPO Lines: peripheral IV DVT prophylaxis: heparin SC BID GI prophylaxis: pantoprazole IV daily [place]: placed CODE STATUS: full code ----- Plan discussed with attending physician Dr. Chrissy Agosto MD PGY-1 Internal Medicine Attending Provider Attestation/Addendum Patient seen and examined with above resident, Jordan Agosto MD. I agree with the findings, assessment, and plan of care as documented except for any differences below. Patient continues to do well postextubation. He continues to be agitated and was requiring high doses of Precedex overnight though we have discontinued this. Seems to have not changed his overall agitation. Patient notably is redirectable. Will plan on repeating speech and swallow evaluation as he failed yesterday limiting his ability to receive antibiotics, past for single large dose of ceftriaxone to be readministered today and the patient can be transition to IV or p.o. Levaquin for completion of course given prior microbiology studies. Patient is off of vasopressors though and remains hemodynamically stable for transfer to medicine [facility] for ongoing management. Patient's family was not at bedside this morning during rounds. Total critical care time: I personally spent 35 minutes for review of physiologic parameters, directed plan of care throughout the day, and coordination of care with medicine team. This is exclusive of time spent teaching housestaff or performing any separate billable procedures. Patient required critical care services for acute encephalopathy acute respiratory failure secondary to severe sepsis. Patient remains at risk for increased morbidity and mortality warranting close monitoring and care only available in the intensive care unit.
[2024-10-29] MEDS: LORazepam 0.5 MG TABLET 2 MG PO (12:09)
--- NOTE | 2024-10-29 12:14 | PCS.ST ---
Swallow eval completed. See reports for details. Ordered dysphagia [address] will follow.
[2024-10-29] MEDS: ACETAMINOPHEN 325 MG TABLET 650 MG PO ×2 (15:40→21:42)
[2024-10-29] MEDS: HYDROCORTISONE 0.5% TOP (16:31)
--- NOTE | 2024-10-29 16:34 | PC.SS ---
Update: Patient downgraded from ICU today.
--- NOTE | 2024-10-29 16:35 | PC.SS ---
TECHNOLOGY RESOURCE TEACHER attempted phone contact with patient's spouse, Jaleesa Morrell; to conduct initial assessment. No response. TECHNOLOGY RESOURCE TEACHER attempted phone contact with patient's daughter, Lanie Mitchell; to conduct initial assessment no response. TECHNOLOGY RESOURCE TEACHER unable to leave voicemail. Will re-attempt at later date.
--- NOTE | 2024-10-29 16:36 | ESPR_ITS ---
<Statement entered by Cesar Sullivan MD - 11/03/24 07:47> I reviewed above note and agree with findings and plans. I have also personally examined the patient with medicine team and went over assessment and plan with medical team including internet ecommerce specialist and resident physician. <Statement entered by Roseanne Pedro MD - 10/29/24 17:05> I discussed with and supervised my co-resident involved in the care of this patient. I agree with the assessment and plan as documented above. Patient was seen at bedside this afternoon after being downgraded to the medical floors by ICU. Patient was admitted on 10/27/2024 by ICU team due to altered mental status for which he was intubated, then extubated yesterday. Infectious, metabolic workup has been started in the ICU, still pending clear etiology. Patient evaluated at bedside. He is groaning, moaning, complaining of pain, AAO to name only. Has difficutly following commands. His scrotum and groin area is very erythematous and painful to touch. Will continue IV antibiotics. Roseanne Pedro MD PGY-3 Documentation for date of: 10/29/24 Subjective Subjective Interval history: Patient was seen at bedside this afternoon after being downgraded to the medical floors by ICU. Patient was admitted on 10/27/2024 by ICU team due to altered mental status. During this time patient was noted to have pinpoint pupils as well as low blood glucose therefore he was given the [address] the way to the hospital. Given patient's mental status he was intubated on admission and was extubated yesterday. Patient had a Madrid in place upon admission with draining significant and purulent material at that was placed. Patient is urine cultures and sputum cultures have been negative since admission. On assessment patient was moaning and seem uncomfortable, but was only able to answer what was his name. He was able to follow some commands, but was not able to express his concerns or problems at this time. There was no family at bedside this time. Exam Vital Signs Temp Pulse Resp BP Pulse Ox O2 Del Method O2 Flow Rate 97.5 F 81 17 150/69 H 92 L Nasal Cannula 2.5 10/29/24 14:00 10/29/24 14:00 10/29/24 14:10/29/24 14:00 10/29/24 14:00 10/29/24 14:00 10/29/24 14:00 FiO2 35 10/28/24 12:00 Narrative Exam General: A/O x1 (only to name), moaning and uncomfortable Eyes: PERRL, but pin point, EOMI. Anicteric, vision grossly intact. Ears: no ear discharge, Hearing grossly intact. Nose: No nasal discharge. Mouth/Throat: Dry mucous membranes, no redness, no lesions. Neck: Neck supple, non-tender, no cervical lymphadenopathy. Lungs: Clear CAMRYN to auscultation and percussion, No accessory muscle use. Cardio: Normal S1/S2, regular rhythm, no murmurs, no JVD Abdomen: Soft, non-tender, no palpable masses, peristalsis present, no guarding or rebound. Extremities: Symmetrical, no significant deformities, no peripheral edema , non-tender, peripheral pulses presents. Skin: No lesions, warm to touch. Rash in groin area beyond the inguinal groove. Wounds on anterior L LE Neuro: A/O x 1 (only to name), able to follow simple commands, not able to explain current problems. Objective Labs 10/29/24 04:50 10/29/24 04:50 Labs: Laboratory Results - last 24 hr 10/29/24 04:50 WBC 8.7 RBC 4.04 L Hgb 11.5 L Hct 34.0 L MCV 84 MCH 28.5 MCHC 33.8 RDW Std Deviation 40.4 Plt Count 379 Neut % (Auto) 66 Lymph % (Auto) 24 [place] % (Auto) 7 Eos % (Auto) 3 Baso % (Auto) 0 Neut # (Auto) 5.8 Lymph # (Auto) 2.1 [place] # (Auto) 0.6 Eos # (Auto) 0.2 Baso # (Auto) 0.0 Immature Gran # (Auto) 0.04 H Absolute Nucleated RBC 0.00 Immature Gran % 1 H Nucleated RBC % 0 Sodium 140 Potassium 3.8 Chloride 110 H Carbon Dioxide 19.3 L Anion Gap 11 BUN 13 Creatinine 0.8 Estim Creat Clear Calc 67.0 eGFR > 60 BUN/Creatinine Ratio 16 Glucose 185 H Calculated Osmolality 284 Calcium 8.4 Corrected Calcium 8.9 Total Bilirubin 0.5 AST 17 ALT 15 Alkaline Phosphatase 87 Total Protein 6.6 Albumin 3.4 Globulin 3.2 Albumin/Globulin Ratio 1.1 L ABG Interpretation ABG results: 10/27/24 10/28/24 20:08 04:35 ABG pH 7.39 7.43 ABG pCO2 33 31 L ABG pO2 333 H 100 D ABG HCO3 20 21 ABG O2 Saturation 101 H 99 H ABG Base Excess -4 L -3 Quality Measures Quality Measures none Advance care planning discussed with:: patient Assessment & Plan Assessment Current Active Medications: Generic Name Dose Route Start Last Admin Trade Name Freq PRN Reason Stop Dose Admin Acetaminophen 650 mg 10/27/24 18:16 10/29/24 15:40 Acetaminophen 325 Mg Tablet PO 11/26/24 18:15 650 mg Q4HR PRN Administration PAIN OR FEVER > 100.4 Al Hydrox/Mg Hydrox/Simethicone 30 ml 10/27/24 18:16 Mg Hyd/Al Hyd/Ora (Maalox Reg) Susp 30 Ml Udc PO 11/26/24 18:15 Q4HR PRN Heartburn or Upset Stomach Clotrimazole 0 gm 10/29/24 21:00 Clotrimazole Cr 1% 30 Gm Tube TOP 11/28/24 20:59 BID JUAN Dextrose 25 ml 10/27/24 18:20 Dextrose 50%-Water Inj 50 Ml Syringe IV 11/26/24 18:19 Q15MIN PRN BG 50-70 responsive npo pt Dextrose 50 ml 10/27/24 18:20 Dextrose 50%-Water Inj 50 Ml Syringe IV 11/26/24 18:19 Q15MIN PRN BG <50 OR BG <70 & pt unresponsive Glucagon 1 mg 10/27/24 18:20 Glucagon Inj 1 Mg Vial IM Q15MIN PRN BG <70, and no IV access Heparin Sodium (Porcine) 5,000 unit 10/27/24 21:00 10/29/24 08:00 Heparin Sod Inj 5000 Unit/Ml Vial SC 11/10/24 20:59 5,000 unit Q12HR JUAN Administration Hydralazine HCl 10 mg 10/29/24 03:24 Hydralazine Inj 20 Mg/Ml Vial IV 11/28/24 03:23 Q8HR PRN SBP>170/90 Levofloxacin/Dextrose 250 mg in 50 mls @ 50 mls/hr 10/30/24 09:00 Levaquin Ivpb IV 11/06/24 08:59 QDAY JUAN Insulin Human Lispro 0 unit 10/27/24 18:30 10/29/24 11:16 Insulin Lispro (Admelog) 1 Unit/0.01 Ml Unit SC 11/26/24 18:29 Not Given Q6HR [facility] Protocol Magnesium Hydroxide 30 ml 10/27/24 18:16 Milk Of Magnesia Susp 30 Ml Udc PO 11/26/24 18:15 QDAY PRN CONSTIPATION Nitroglycerin 0.4 mg 10/27/24 18:16 Nitroglycerin 0.4 Mg Subl Btl #25 SL Q5MIN PRN CHEST PAIN Pantoprazole Sodium 40 mg 10/28/24 09:00 10/29/24 08:00 Pantoprazole Inj 40 Mg Vial IVP 11/27/24 08:59 40 mg QDAY JUAN Administration Plan 78-year-old male with past medical history of DM2, hypertension, CAD, asthma, BPH, peripheral neuropathy, and subdural hematoma status post surgical evacuation was admitted to the ICU on 10/27/2024 due to acute encephalopathy and was downgraded to the medical floors on 10/29/2024. #Acute encephalopathy #Hypoglycemia #Pyuria #DM2 #BPH ? Patient was altered initially and his blood glucose was 40 as per EMS ? Patient's urine was very purulent upon Madrid catheter insertion and had significant WBCs, but no bacteria ? Urine cultures have been negative ?Patient has not had any spikes in fevers and WBCs are not up trended ?Acute encephalopathy was most likely in the setting of hypoglycemia versus possible urine retention given BPH history ?Head CT only showed chronic left frontal subdural hygroma which increased in size compared to 12/24/2023 ?A1c 9.1% on 10/2024 ? Patient is AO x 1 today only to name Plan: ? Continue levofloxacin [10/30/2024?] ?ISS ? Accu-Cheks and hypoglycemia protocol ordered ?Continue Madrid catheter ? Will continue to monitor #Diaper rash ?On assessment patient was noticed to have a rash in his groin area and extended beyond the inguinal groove. Plan: ? Will start patient on clotrimazole cream twice daily #Hyperchloremic non-anion gap metabolic acidosis ? Bicarb 19.3 and chloride 110 Plan: ? Will continue to monitor for now #Normocytic normochromic anemia ? Patient's baseline hemoglobin is around 10-11 ? Hemoglobin today 11.5 Plan: ?Will transfuse hemoglobin less than 7 ? Iron panel and ferritin ordered ? Will continue to monitor #JANA, resolved #Hx of CAD #Hx of subdural hematoma s/p surgical repair #Subdural hygroma ?Pending speech evaluation to start p.o. medications Disposition: Patient downgraded to medical floors today. Diet: NPO GI prophylaxis: protonix DVT prophylaxis: heparin sc Code: Full code Case disclosed with Attending Dr. Sullivan and My senior Dr. Pedro PGY3. Gene Wells PGY1
[2024-10-29] MEDS: KETOROLAC INJ 30 MG/ML VIAL 15 MG IVP (18:31)
[2024-10-29] MEDS: TRIAMCINOLONE ACET OINT 0.5% 15 GM TUBE 2 GM TOP (21:46)
[2024-10-29] MEDS: CLOTRIMAZOLE CR 1% 30 GM TUBE TOP (21:49)
--- NOTE | 2024-10-29 22:41 | PC.NURSE ---
pt persistently yelling a lot, anxious, restless- Assisted with sips of milk as tolerated.
--- NOTE | 2024-10-29 23:42 | PC.NURSE ---
re med rec- called [facility] tel#[phone] and Rocio staff from [facility] will fax lists of home meds to [address]
[2024-10-30] VITALS (14 sets, daily range): BP systolic 132–172; BP diastolic 74–99; PULSE 82–92; RESP 16–22; TEMP 36.1–37; O2SAT 92–98
--- NOTE | 2024-10-30 00:45 | PC.NURSE ---
re med rec- called [facility] and followed up re need pt med lists.
--- NOTE | 2024-10-30 00:57 | PC.NURSE ---
called [facility] re lists of med lists- Per [facility] social services aide she just faxed med lists and to recheck fax machine after about 5 mins.
--- NOTE | 2024-10-30 00:59 | PC.NURSE ---
92% O2 sat on 2L/min/nc- Increased to 3L/min/nc with 94% O2 sat.
[2024-10-30] MEDS: DiphenhydrAMINE ELIX 25 MG/10 ML UDC PO (01:16)
[2024-10-30] MEDS: ALBUTEROL/IPRATROPIUM (Duoneb) RT SOL 3 ML NEBU INH ×4 (01:42→22:42)
[2024-10-30] MEDS: HALOPERIDOL LACT INJ 5 MG/ML VIAL 2.5 MG IV (03:07)
[2024-10-30] MEDS: NITROGLYCERIN 0.4 MG SUBL BTL #25 SL ×2 (03:42→22:02)
--- NOTE | 2024-10-30 03:47 | PC.NURSE ---
seen and examined by Dr. Pope with Elana maldonado as freelance interpreter/translator. Give prn nitro sl per md.
--- NOTE | 2024-10-30 03:49 | EKG_ITS ---
[facility] Test Date: 2024-10-30 Pat Name: JOEY Ernandezpartment[facility] Gender[facility] Document Improvement Specialist: USRESH : 1945 Requested By: Juan Francisco Pope Order Number: [id number] Reading MD: Juan Francisco Pope Measurements Intervals [place] Rate: 88 P: 81 NV: 173 QRS: 94 QRSD: 93 T: 63 QT: 384 QTc: 466 Interpretive Statements SINUS RHYTHM BORDERLINE RIGHT AXIS DEVIATION NONSPECIFIC ST & T-WAVE ABNORMALITY Compared to ECG 10/27/2024 17:22:28 T-wave abnormality now present Sinus bradycardia no longer present Myocardial infarct finding no longer present /store/S0/[id number].pdf
[2024-10-30] MEDS: HALOPERIDOL LACT INJ 5 MG/ML VIAL 2.5 MG IM (04:27)
[2024-10-30] MEDS: TRIAMCINOLONE ACET OINT 0.5% 15 GM TUBE 2 GM TOP ×4 (05:30→22:09)
[2024-10-30 05:32] LABS: Basophils % (Auto) 0 % (0-2.5); Eosinophils % (Auto) 0 % (0-10); Hematocrit 29.1 % (41.0-53.0); Hemoglobin 9.6 g/dL (13.5-16.0); Immature Granulocytes % (Auto) 0 % (0-0); Immature Granulocytes Auto 0.04 Thou/mm3 (0.00-0.00); Lymphocytes # (Auto) 1.5 Thou/mm3 (1.0-4.8); Lymphocytes % (Auto) 15 % (10-50); Mean Corpuscular Hemoglobin 28.5 pg (25.0-35.0); Mean Corpuscular Volume 86 fL (80-100); Monocytes # (Auto) 0.7 Thou/mm3 (0.0-0.8); Monocytes % (Auto) 7 % (0-12); Neutrophils # (Auto) 7.8 Thou/mm3 (1.8-7.7); Neutrophils % (Auto) 77 % (37-80); Nucleated Red Blood Cell % 0 /100 WBC (0); Platelet Count 414 Thou/mm3 (140-440); RDW Standard Deviation 41.6 fL (35.1-43.9); Red Blood Count 3.37 Miln/mm3 (4.50-5.90)
[2024-10-30] MEDS: INSULIN LISPRO (AdmeLOG) 1 UNIT/0.01 ML UNIT SC ×3 (05:36→17:17)
[2024-10-30 06:38] LABS: Ferritin 267 ng/mL (10.5-307.3); Total Iron Binding Capacity 205 mcg/dL (250-425)
[2024-10-30 06:47] LABS: Iron 34 mcg/dL (65-175); Percent Iron Saturation 16 % (20-55); Unsaturated Iron Binding 171 (225-295)
[2024-10-30 07:21] LABS: Alanine Aminotransferase 16 U/L (10-49); Albumin, Serum 3.8 gm/dL (3.4-4.8); Albumin/Globulin Ratio 1.1 (1.2-2.2); Alkaline Phosphatase 107 U/L (46-116); Anion Gap 16 (7-16); Aspartate Amino Transferase 21 U/L (0-34); BUN/Creatinine Ratio 14 Ratio (12-20); Bilirubin,Total 0.5 mg/dL (0.3-1.2); Blood Urea Nitrogen 15 mg/dL (9-23); Calcium 8.9 mg/dL (8.3-10.6); Calcium (Corrected) 9.1 mg/dL (8.5-10.1); Carbon Dioxide 19.3 mMol/L (20.0-31.0); Chloride 106 mMol/L (98-107); Creatinine (Component) 1.1 mg/dL (0.6-1.3); Estimated Creatinine Clearance 52.6 mL/min (>60); Globulin 3.4 gm/dL (2.3-3.5); Glucose 247 mg/dL (74-106); Osmolality,Calculated 290 (275-295); Potassium 3.9 mMol/L (3.4-5.1); Sodium 141 mMol/L (136-145); Total Protein 7.2 gm/dL (5.7-8.2); eGFR > 60 See Note
[2024-10-30 07:26] LABS: Troponin I 0.058 ng/mL (0.0-0.045)
--- NOTE | 2024-10-30 07:44 | XR_ITS ---
Examination: CT abdomen and pelvis without contrast. Coronal 3-D reconstructions. Sagittal 2-D reconstructions. Date and time of exam:October 30, 2024 0850 hrs. Comparison January 01, 2023 Indications: Abdominal pain intractable this month CTDI: vol (mGy): 9.7 DLP: (mGycm): 577 Technique: Axial images of the abdomen have been obtained, 3 mm slice thickness Intravenous contrast material has not been administered. Low dose protocols were performed. One or more of the following dose reduction techniques were used; automated exposure control, adjustment of the mA and/or KV according to patient size, use of iterative reconstruction technique. Findings: Extensive pneumonia right base Mild enlargement cardiac contour Mild to moderate bilateral pleural effusions Fatty infiltration throughout the liver Significant patient motion Absent gallbladder No pancreatic or adrenal mass No hydronephrosis or renal calculi No bowel obstruction Abdominal aortic calcification no aneurysmal dilatation Normal appendix No diverticulitis No abdominal or pelvic abscess Marked thickening of the urinary bladder wall Advanced degenerative disc disease L4-L5 with grade 2 anterolisthesis L4 on L5 Impression: The entire study is severely limited secondary to patient motion No renal or ureteral calculi, no hydronephrosis Normal appendix No bowel obstruction or diverticulitis No abdominal or pelvic abscess Mild prostatomegaly Significant pneumonia right base
--- NOTE | 2024-10-30 07:58 | ECHO_ITS ---
Transthoracic Echo Report Ht (in): 72 Wt (lb): 150 Exam Location: Echo Lab Status: Inpatient Account Services Associate: NADYA Lloyd^^^^ Indications: Procedure Performed: BP: 143 / 79 HR: 114 Technical Quality: Very technically difficult study MEASUREMENTS (Male / Female) Normal Values 2D ECHO LV Diastolic Diameter PLAX 4.0 cm 4.2 - 5.9 / 3.9 - 5.3 cm LV Systolic Diameter PLAX 2.8 cm IVS Diastolic Thickness 1.1 cm 0.6 - 1.0 / 0.6 - 0.9 cm LVPW Diastolic Thickness 0.9 cm 0.6 - 1.0 / 0.6 - 0.9 cm LV Relative Wall Thickness 0.5 LVOT Diameter 1.7 cm Aortic Root Diameter 3.1 cm LA Systolic Diameter LX 3.3 cm 3.0 - 4.0 / 2.7 - 3.8 cm Ascending Aorta Diameter 3.1 cm DOPPLER AV Peak Velocity 122.0 cm/s AV Peak Gradient 6.0 mmHg AV Mean Gradient 5.0 mmHg AV Velocity Time Integral 25.8 cm AI Peak Velocity 279.0 cm/s AI Peak Gradient 31.1 mmHg AI Pressure Half Time 686.5 ms LVOT Peak Velocity 81.1 cm/s LVOT Peak Gradient 2.6 mmHg LVOT Velocity Time Integral 15.3 cm LVOT Cardiac Index 2139.1 cm?/min?m? AV Area Cont Eq vti 1.3 cm? AV Area Cont Eq pk 1.5 cm? MV Area PHT 3.3 cm? Mitral E Point Velocity 130.0 cm/s LV E' Lateral Velocity 9.5 cm/s Mitral E to LV E' Lateral Ratio 13.7 LV E' Septal Velocity 8.1 cm/s Mitral E to LV E' Septal Ratio 16.1 PV Peak Velocity 112.0 cm/s PV Peak Gradient 5.0 mmHg RVOT Peak Velocity 76.9 cm/s FINDINGS Left Ventricle Normal left ventricular size, wall thickness, systolic function with no obvious regional wall motion abnormalities. Normal left ventricular diastolic filling pattern for age. The ejection fraction is visually estimated at 55-60 %. Right Ventricle The right ventricle is normal in size and systolic function. The estimated right ventricular systolic pressure, 20 mmHg. Left Atrium The left atrium is normal by two-dimensional, color flow and Doppler imaging with no structural abnormalities, no thrombus formation present. Right Atrium The right atrium is normal by two-dimensional imaging, color flow and Doppler imaging with no structural abnormalities, no thrombus formation present. Atrial Septum The interatrial septum appears normal with no evidence of a shunt. Aorta The aorta is normal by two-dimensional, color flow and Doppler interrogation. Mitral Valve Trace to mild mitral regurgitation. Mild mitral annular calcification. Aortic Valve Mild aortic valve regurgitation. Tricuspid Valve There is mild tricuspid valve regurgitation. Pulmonic Valve The pulmonic valve is not well visualized. There is no significant pulmonic valve regurgitation. Vessels The pulmonary artery appears normal. The inferior vena cava pulmonary and hepatic veins appear normal. Pericardium The pericardium is normal by two-dimensional imaging. There is no significant pericardial effusion. CONCLUSIONS indication: Elevated Troponins / NSTEMI Patient uncooperative & eventually refused rest of exam. Normal LV size and function with an EF of 55 to 60%. Normal diastolic function. Normal RV size and function. Trace to mild MR. Trace AI and TR. Troy Saenz (Electronically Signed) Final Date: 30 October 2024 17:59
[2024-10-30] MEDS: PANTOPRAZOLE INJ 40 MG VIAL IVP (08:18)
[2024-10-30] MEDS: HEPARIN SOD INJ 5000 UNIT/ML VIAL SC ×2 (08:18→21:29)
[2024-10-30] MEDS: LEVOFLOXACIN/D5W 250MG IVPB 250 MG/50 ML BAG 50 MG IV (08:18)
[2024-10-30] MEDS: CLOTRIMAZOLE CR 1% 30 GM TUBE TOP ×2 (08:20→22:10)
[2024-10-30] MEDS: KETOROLAC INJ 30 MG/ML VIAL 15 MG IVP (08:31)
[2024-10-30] MEDS: LORazepam 2 MG/ML VIAL 0.5 MG IVP (08:31)
--- NOTE | 2024-10-30 10:53 | PC.SS ---
Patient Rk Morrell is a 78 Year old male admitted for Acute Encephalopathy. SS attempted to contact patients daughterJodi however did not answer, SS was unable to leave Voicemail. SS contacted patients , Jaleesa she reported patient has been at [facility] and is a assisted patient. Patient's reports she is surrogate decision maker [phone]. Patients reports patient is bed bound and does not ambulate. At time of discharge patient will return to [facility]. SS will need to assist with transportation. Discharge plan: [facility] Next of Kin: , Jaleesa Morrell [phone]
[2024-10-30 11:47] LABS: Troponin I 0.066 ng/mL (0.0-0.045)
--- NOTE | 2024-10-30 14:55 | PC.NURSE ---
Dr Pedro in room with family at bedside discussing plan of care
--- NOTE | 2024-10-30 14:57 | ESPR_ITS ---
<Statement entered by Cesar Sullivan MD - 11/03/24 07:48> I reviewed above note and agree with findings and plans. I have also personally examined the patient with medicine team and went over assessment and plan with medical team including internal communications writer and resident physician. <Statement entered by Roseanne Pedro MD - 10/30/24 15:07> I discussed with and supervised my co-resident involved in the care of this patient. I agree with the assessment and plan as documented above. Patient seen and examined at bedside. He is AO x1 name only. Continues to groan and complain of pain, but unable to specify where; endorses in chest, abdomen, though they are not rigid or specifically tender to touch. Overnight he complained of chest pain and found to have elevated troponin, which we are trending. He is otherwise afebrile, no leukocytosis. Upon review, UA does show significant pyuria however urine culture had no growth; UA was collected before antibiotics were given. Will continue IV antibiotics for UTI. Patient has history of gallbladder fossa fluid collection that had a previous drain. Given this history and unspecified pain, will get CT abdomen/pelvis to look for possible etiology of patient's presentation. Family (, son) at bedside in afternoon. Per family, patient's baseline is AAO x 3, conversant. Family updated with current plan. Son requesting to change point of contact/notify to him. Roseanne Pedro MD PGY-3 Documentation for date of: 10/30/24 Subjective Subjective Interval history: Patient was seen at bedside this morning. Patient had pain overnight and he stated that he had some chest pain therefore an EKG was ordered and troponins were ordered at this time. His troponins were mildly increased to 0.058 and then up trended to 0.066. EKG did not look to have any acute ST changes or signs of ischemia at this time. Will order echo to follow-up and will continue to trend troponins for now. There was no clinical change in patient's mental status today he was still only alert and oriented to his name. He was still groaning and moaning and appeared to be in pain, but when asked patient has pain all over. Given that there is no clear source for patient's acute encephalopathy other than what could have been his hypoglycemia or possible UTI yet there are negative urine cultures we had ordered abdomen/pelvis CT which showed that the patient had significant right base pneumonia and some mild prostatomegaly. Patient most likely had some aspiration pneumonia given that even though he did pass the speech evaluation he has had some cough spells while eating. Tried reaching out to family, but was unsuccessful. Exam Vital Signs Temp Pulse Resp BP Pulse Ox O2 Del Method O2 Flow Rate 97.8 F 82 19 161/74 H 95 Nasal Cannula 4 10/30/24 12:00 10/30/24 12:30 10/30/24 12:00 10/30/24 12:30 10/30/24 12:00 10/30/24 12:00 10/30/24 12:00 FiO2 35 10/28/24 12:00 Narrative Exam General: A/O x1 (only to name), moaning and uncomfortable Eyes: PERRL, but pin point, EOMI. Anicteric, vision grossly intact. Ears: no ear discharge, Hearing grossly intact. Nose: No nasal discharge. Mouth/Throat: Dry mucous membranes, no redness, no lesions. Neck: Neck supple, non-tender, no cervical lymphadenopathy. Lungs: Upper airway congestion with some rhonchi bilateral, No accessory muscle use. Cardio: Normal S1/S2, regular rhythm, no murmurs, no JVD Abdomen: Soft, non-tender, no palpable masses, peristalsis present, no guarding or rebound. Extremities: Symmetrical, no significant deformities, no peripheral edema , non-tender, peripheral pulses presents. Skin: No lesions, warm to touch. Rash in groin area beyond the inguinal groove. Wound on anterior L LE, Sacral region covered with clean dressing Neuro: A/O x 1 (only to name), able to follow simple commands, not able to explain current problems. Objective Labs 10/30/24 05:04 10/30/24 05:04 Labs: Laboratory Results - last 24 hr 10/30/24 10/30/24 05:04 11:00 WBC 10.0 RBC 3.37 L Hgb 9.6 L Hct 29.1 L MCV 86 MCH 28.5 MCHC 33.0 RDW Std Deviation 41.6 Plt Count 414 D Neut % (Auto) 77 Lymph % (Auto) 15 [place] % (Auto) 7 Eos % (Auto) 0 Baso % (Auto) 0 Neut # (Auto) 7.8 H Lymph # (Auto) 1.5 [place] # (Auto) 0.7 Eos # (Auto) 0.0 Baso # (Auto) 0.0 Immature Gran # (Auto) 0.04 H Absolute Nucleated RBC 0.00 Immature Gran % 0 Nucleated RBC % 0 Sodium 141 Potassium 3.9 Chloride 106 Carbon Dioxide 19.3 L Anion Gap 16 BUN 15 Creatinine 1.1 Estim Creat Clear Calc 52.6 L eGFR > 60 BUN/Creatinine Ratio 14 Glucose 247 H D Calculated Osmolality 290 Calcium 8.9 Corrected Calcium 9.1 Iron 34 L TIBC 205 L Iron Saturation 16 L Unsat Iron Binding 171 L Ferritin 267 Total Bilirubin 0.5 AST 21 ALT 16 Alkaline Phosphatase 107 D Troponin I 0.058 H* 0.066 H* Total Protein 7.2 Albumin 3.8 Globulin 3.4 Albumin/Globulin Ratio 1.1 L ABG Interpretation ABG results: 10/27/24 10/28/24 20:08 04:35 ABG pH 7.39 7.43 ABG pCO2 33 31 L ABG pO2 333 H 100 D ABG HCO3 20 21 ABG O2 Saturation 101 H 99 H ABG Base Excess -4 L -3 Quality Measures Quality Measures none Advance care planning discussed with:: patient Assessment & Plan Assessment Current Active Medications: Generic Name Dose Route Start Last Admin Trade Name Freq PRN Reason Stop Dose Admin Acetaminophen 650 mg 10/27/24 18:16 10/29/24 21:42 Acetaminophen 325 Mg Tablet PO 11/26/24 18:15 650 mg Q4HR PRN Administration PAIN OR FEVER > 100.4 Al Hydrox/Mg Hydrox/Simethicone 30 ml 10/27/24 18:16 Mg Hyd/Al Hyd/Ora (Maalox Reg) Susp 30 Ml Udc PO 11/26/24 18:15 Q4HR PRN Heartburn or Upset Stomach Albuterol/Ipratropium 3 ml 10/30/24 01:09 10/30/24 07:34 Albuterol/Ipratropium (Duoneb) Rt Patti 3 Ml Nebu INH 11/29/24 02:59 3 ml Q4HRRT PRN Administration SOB/Wheeze Clotrimazole 0 gm 10/29/24 21:00 10/30/24 08:20 Clotrimazole Cr 1% 30 Gm Tube TOP 11/28/24 20:59 1 applicatio BID JUAN Administration Dextrose 25 ml 10/27/24 18:20 Dextrose 50%-Water Inj 50 Ml Syringe IV 11/26/24 18:19 Q15MIN PRN BG 50-70 responsive npo pt Dextrose 50 ml 10/27/24 18:20 Dextrose 50%-Water Inj 50 Ml Syringe IV 11/26/24 18:19 Q15MIN PRN BG <50 OR BG <70 & pt unresponsive Glucagon 1 mg 10/27/24 18:20 Glucagon Inj 1 Mg Vial IM Q15MIN PRN BG <70, and no IV access Heparin Sodium (Porcine) 5,000 unit 10/27/24 21:00 10/30/24 08:18 Heparin Sod Inj 5000 Unit/Ml Vial SC 11/10/24 20:59 5,000 unit Q12HR JUAN Administration Hydralazine HCl 10 mg 10/29/24 03:24 Hydralazine Inj 20 Mg/Ml Vial IV 11/28/24 03:23 Q8HR PRN SBP>170/90 Levofloxacin/Dextrose 250 mg in 50 mls @ 50 mls/hr 10/30/24 09:00 10/30/24 08:18 Levaquin Ivpb IV 11/06/24 08:59 50 mls/hr QDAY [facility] Administration Insulin Human Lispro 0 unit 10/30/24 17:00 Insulin Lispro (Admelog) 1 Unit/0.01 Ml Unit SC 11/29/24 16:59 AC [facility] Protocol Magnesium Hydroxide 30 ml 10/27/24 18:16 Milk Of Magnesia Susp 30 Ml Udc PO 11/26/24 18:15 QDAY PRN CONSTIPATION Nitroglycerin 0.4 mg 10/27/24 18:16 10/30/24 03:42 Nitroglycerin 0.4 Mg Subl Btl #25 SL 1 tab Q5MIN PRN Administration CHEST PAIN Pantoprazole Sodium 40 mg 10/28/24 09:00 10/30/24 08:18 Pantoprazole Inj 40 Mg Vial IVP 11/27/24 08:59 40 mg QDAY JUAN Administration Triamcinolone Acetonide 2 gm 10/29/24 18:00 10/30/24 12:00 Triamcinolone Acet Oint 0.5% 15 Gm Tube TOP 11/28/24 17:59 1 applicatio QID [facility] Administration Plan 78-year-old male with past medical history of DM2, hypertension, CAD, asthma, BPH, peripheral neuropathy, and subdural hematoma status post surgical evacuation was admitted to the ICU on 10/27/2024 due to acute encephalopathy and was downgraded to the medical floors on 10/29/2024. #Acute encephalopathy #Possible aspiration pneumonia #Hypoglycemia #Pyuria #DM2 #BPH ? Patient was altered initially and his blood glucose was 40 as per EMS ? Patient's urine was very purulent upon Madrid catheter insertion and had significant WBCs, but no bacteria ? Urine cultures have been negative ?Patient has not had any spikes in fevers and WBCs are not up trended ?Acute encephalopathy was most likely in the setting of hypoglycemia versus possible urine retention given BPH history ?Head CT only showed chronic left frontal subdural hygroma which increased in size compared to 12/24/2023 -Abdomen/pelvis CT which showed that the patient had significant right base pneumonia ?A1c 9.1% on 10/2024 ? Patient is AO x 1 today only to name Plan: ? Continue levofloxacin [10/30/2024?] ?ISS ? Accu-Cheks and hypoglycemia protocol ordered ?Continue Madrid catheter ? Will continue to monitor #NSTEMI ? Patient did complain of some chest pain overnight and he had some elevated troponins at 0.058 which up trended to 0.066. ? EKG did not show any acute ST changes or signs of ischemia at this time. ? NSTEMI most likely type II in the setting of pneumonia. Plan: ? Will trend troponins ? Echo ordered ? Will continue to monitor #Diaper rash ?On assessment patient was noticed to have a rash in his groin area and extended beyond the inguinal groove. Plan: ? Will continue patient on clotrimazole cream twice daily #Hyperchloremic non-anion gap metabolic acidosis ? Bicarb 19.3 and chloride 106 Plan: ? Will continue to monitor for now #Normocytic normochromic anemia ? Patient's baseline hemoglobin is around 10-11 ? Hemoglobin today 9.6 Plan: ?Will transfuse hemoglobin less than 7 ? Will continue to monitor #JANA, resolved #Hx of CAD #Hx of subdural hematoma s/p surgical repair #Subdural hygroma ?Pending speech evaluation to start p.o. medications Disposition: Possible aspiration PNA, continue Abx, possible DC in next 24-48 hrs. Diet: Carb consistent GI prophylaxis: protonix DVT prophylaxis: heparin sc Code: Full code Case disclosed with Attending Dr. Sullivan and My senior Dr. Pedro PGY3. Gene Wells PGY1
[2024-10-30] MEDS: HYDROcodone/APAP 5/325 TABLET 1 TAB PO ×2 (15:25→21:19)
[2024-10-30] MEDS: Milk Of Magnesia Susp 30 ML UDC PO (15:28)
[2024-10-30] MEDS: ACETYLCYSTEINE RT SOL 10% 4 ML NEBU 3 ML INH (15:56)
[2024-10-30] MEDS: KETOROLAC INJ 30 MG/ML VIAL IVP (17:00)
[2024-10-30] MEDS: bisacodyL 10 MG SUPP PR (17:01)
[2024-10-30 17:07] LABS: Troponin I 0.067 ng/mL (0.0-0.045)
--- NOTE | 2024-10-30 19:23 | PC.NURSE ---
Notified Dr Pope of 7 beat run of PVCs. Now in SR at 89. No additional unusual behaviours expressed by pt at this time. Patria TAYLOR aware.
--- NOTE | 2024-10-30 21:28 | EKG_ITS ---
[facility] (Formerly [facility]) Test Date: 2024-10-30 Pat Name: JOEY Ernandezpartment: [facility] [employer] History [facility] 1945 Requested By: Juan Francisco Pope Order Number: [id number] Reading MD: Juan Francisco Pope Measurements Intervals [place] Rate: 86 P: [place]: QRS: 86 QRSD: 98 T: -63 QT: 301 QTc: 362 Interpretive Statements ATRIAL FIBRILLATION ST DEVIATION AND MODERATE T-WAVE ABNORMALITY, CONSIDER INFERIOR ISCHEMIA Compared to ECG 10/30/2024 04:04:04 Possible ischemia now present Sinus rhythm no longer present T-wave abnormality still present /store/S0/[id number].pdf
--- NOTE | 2024-10-30 21:59 | EKG_ITS ---
[facility] Test Date: 2024-10-30 Pat Name: JOEY Ernandezpartment: [facility] Spin Table Operator: ANISH : 1945 Requested By: Juan Francisco Pope Order Number: [id number] Reading MD: Juan Francisco Pope Measurements Intervals [place] Rate: 84 P: 62 FL: 179 QRS: 99 QRSD: 97 T: 52 QT: 388 QTc: 460 Interpretive Statements SINUS RHYTHM BORDERLINE RIGHT AXIS DEVIATION NONSPECIFIC ST & T-WAVE ABNORMALITY Compared to ECG 10/30/2024 21:41:39 Atrial fibrillation no longer present Possible ischemia no longer present T-wave abnormality still present /store/S0/[id number].pdf
[2024-10-30] MEDS: DiphenhydrAMINE 25 MG CAPSULE PO (22:18)
[2024-10-30 23:04] LABS: Troponin I 0.063 ng/mL (0.0-0.045)
[2024-10-30] MEDS: MELATONIN 3 MG TABLET PO (23:27)
[2024-10-31] VITALS (11 sets, daily range): BP systolic 141–179; BP diastolic 74–99; PULSE 78–97; RESP 18–23; TEMP 36.2–36.8; O2SAT 90–94; BMI 19.5
[2024-10-31] MEDS: KETOROLAC INJ 30 MG/ML VIAL IVP ×2 (04:04→11:21)
[2024-10-31] MEDS: hydrALAZINE INJ 20 MG/ML VIAL 10 MG IV (05:13)
[2024-10-31 05:58] LABS: Basophils % (Auto) 0 % (0-2.5); Eosinophils % (Auto) 0 % (0-10); Hematocrit 30.6 % (41.0-53.0); Hemoglobin 10.1 g/dL (13.5-16.0); Immature Granulocytes % (Auto) 0 % (0-0); Immature Granulocytes Auto 0.03 Thou/mm3 (0.00-0.00); Lymphocytes # (Auto) 1.2 Thou/mm3 (1.0-4.8); Lymphocytes % (Auto) 11 % (10-50); Mean Corpuscular Hemoglobin 28.3 pg (25.0-35.0); Mean Corpuscular Volume 86 fL (80-100); Monocytes # (Auto) 0.6 Thou/mm3 (0.0-0.8); Monocytes % (Auto) 6 % (0-12); Neutrophils # (Auto) 8.4 Thou/mm3 (1.8-7.7); Neutrophils % (Auto) 83 % (37-80); Nucleated Red Blood Cell % 0 /100 WBC (0); Platelet Count 395 Thou/mm3 (140-440); RDW Standard Deviation 43.1 fL (35.1-43.9); Red Blood Count 3.57 Miln/mm3 (4.50-5.90); White Blood Count 10.1 Thou/mm3 (3.8-10.6)
[2024-10-31 06:25] LABS: Alanine Aminotransferase 21 U/L (10-49); Albumin/Globulin Ratio 1.1 (1.2-2.2); Alkaline Phosphatase 109 U/L (46-116); Anion Gap 16 (7-16); Aspartate Amino Transferase 34 U/L (0-34); BUN/Creatinine Ratio 15 Ratio (12-20); Bilirubin,Total 0.6 mg/dL (0.3-1.2); Blood Urea Nitrogen 18 mg/dL (9-23); Calcium 9.4 mg/dL (8.3-10.6); Calcium (Corrected) 9.4 mg/dL (8.5-10.1); Carbon Dioxide 20.3 mMol/L (20.0-31.0); Chloride 108 mMol/L (98-107); Creatinine (Component) 1.2 mg/dL (0.6-1.3); Estimated Creatinine Clearance 48.2 mL/min (>60); Globulin 3.7 gm/dL (2.3-3.5); Glucose 241 mg/dL (74-106); Osmolality,Calculated 296 (275-295); Potassium 4.4 mMol/L (3.4-5.1); Sodium 144 mMol/L (136-145); Total Protein 7.7 gm/dL (5.7-8.2); eGFR > 60 See Note
[2024-10-31] MEDS: PANTOPRAZOLE INJ 40 MG VIAL IVP (08:02)
[2024-10-31] MEDS: HEPARIN SOD INJ 5000 UNIT/ML VIAL SC ×2 (08:03→20:19)
[2024-10-31] MEDS: INSULIN LISPRO (AdmeLOG) 1 UNIT/0.01 ML UNIT SC ×3 (08:03→17:19)
[2024-10-31] MEDS: HYDROcodone/APAP 5/325 TABLET 1 TAB PO ×2 (08:03→19:39)
[2024-10-31] MEDS: LEVOFLOXACIN/D5W 250MG IVPB 250 MG/50 ML BAG 50 MG IV (08:04)
[2024-10-31] MEDS: TRIAMCINOLONE ACET OINT 0.5% 15 GM TUBE 2 GM TOP ×4 (08:24→21:00)
[2024-10-31] MEDS: CLOTRIMAZOLE CR 1% 30 GM TUBE TOP ×2 (10:00→21:00)
--- NOTE | 2024-10-31 10:50 | CHAP ---
Family was with the patient. The patient was sleeping, but the daughter asked that I pray for him. After the prayer the patient's expressed her gratitude.
[2024-10-31] MEDS: LEVOFLOXACIN/D5W 500 MG IVPB 500 MG/100 ML BAG 100 MG IV (11:07)
--- NOTE | 2024-10-31 11:29 | ESPR_ITS ---
<Statement entered by Cesar Sullivan MD - 11/03/24 07:50> I reviewed above note and agree with findings and plans. I have also personally examined the patient with medicine team and went over assessment and plan with medical team including automotive internet sales consultant and resident physician. <Statement entered by Roseanne Pedro MD - 10/31/24 14:41> I discussed with and supervised my co-resident involved in the care of this patient. I agree with the assessment and plan as documented above. Patient seen and examined at bedside. His mentation is better, groaning in pain less and able to verbalize and ask for water. He remains orientated to name. Sounds congested on auscultation with some weakness coughing. Will try congestants to help patient bring up phlegm and continue levofloxacin for his pneumonia. Due to patient's history of repaired subdural hematoma and hygroma, will consult neurology if patient component of NPH contributing to his acute on chronic encephalopathy. Documentation for date of: 10/31/24 Subjective Subjective Interval history: Patient was seen at bedside this morning. No overnight events. Patient was accompanied by his and his daughter were at bedside this morning. They stated that the patient did have some moaning and groaning in the longterm facility, but did not always much more pronounced. Patient sounded a little bit clearer today, but is still seems uncomfortable. Consulted neurology given that the patient's mental status is not improved and given his continued groaning and moaning. Patient's parents downtrended. Increase his levofloxacin 750 mg daily. No other complaints at this time. Will continue to monitor. Exam Vital Signs Temp Pulse Resp BP Pulse Ox O2 Del Method O2 Flow Rate 97.2 F 87 18 141/87 H 93 L Nasal Cannula 4 10/31/24 08:00 10/31/24 08:39 10/31/24 08:39 10/31/24 08:00 10/31/24 08:39 10/31/24 08:00 10/31/24 08:39 FiO2 35 10/28/24 12:00 Narrative Exam General: A/O x1 (only to name), moaning and uncomfortable Eyes: PERRL, but pin point, EOMI. Anicteric, vision grossly intact. Ears: no ear discharge, Hearing grossly intact. Nose: No nasal discharge. Mouth/Throat: Dry mucous membranes, no redness, no lesions. Neck: Neck supple, non-tender, no cervical lymphadenopathy. Lungs: Upper airway congestion with some rhonchi bilateral, No accessory muscle use. Cardio: Normal S1/S2, regular rhythm, no murmurs, no JVD Abdomen: Soft, non-tender, no palpable masses, peristalsis present, no guarding or rebound. Extremities: Symmetrical, no significant deformities, no peripheral edema , non-tender, peripheral pulses presents. Skin: No lesions, warm to touch. Rash in groin area beyond the inguinal groove. Wound on anterior L LE, Sacral region covered with clean dressing Neuro: A/O x 1 (only to name), able to follow simple commands, not able to explain current problems. Objective Labs 10/31/24 05:16 10/31/24 05:16 Labs: Laboratory Results - last 24 hr 10/30/24 10/30/24 10/30/24 11:00 16:19 22:16 WBC RBC Hgb Hct MCV MCH MCHC RDW Std Deviation Plt Count Neut % (Auto) Lymph % (Auto) [place] % (Auto) Eos % (Auto) Baso % (Auto) Neut # (Auto) Lymph # (Auto) [place] # (Auto) Eos # (Auto) Baso # (Auto) Immature Gran # (Auto) Absolute Nucleated RBC Immature Gran % Nucleated RBC % Sodium Potassium Chloride Carbon Dioxide Anion Gap BUN Creatinine Estim Creat Clear Calc eGFR BUN/Creatinine Ratio Glucose Calculated Osmolality Calcium Corrected Calcium Total Bilirubin AST ALT Alkaline Phosphatase Troponin I 0.066 H* 0.067 H* 0.063 H* Total Protein Albumin Globulin Albumin/Globulin Ratio 10/31/24 05:16 WBC 10.1 RBC 3.57 L Hgb 10.1 L Hct 30.6 L MCV 86 MCH 28.3 MCHC 33.0 RDW Std Deviation 43.1 Plt Count 395 Neut % (Auto) 83 H Lymph % (Auto) 11 [place] % (Auto) 6 Eos % (Auto) 0 Baso % (Auto) 0 Neut # (Auto) 8.4 H Lymph # (Auto) 1.2 [place] # (Auto) 0.6 Eos # (Auto) 0.0 Baso # (Auto) 0.0 Immature Gran # (Auto) 0.03 H Absolute Nucleated RBC 0.00 Immature Gran % 0 Nucleated RBC % 0 Sodium 144 Potassium 4.4 D Chloride 108 H Carbon Dioxide 20.3 Anion Gap 16 BUN 18 Creatinine 1.2 Estim Creat Clear Calc 48.2 L eGFR > 60 BUN/Creatinine Ratio 15 Glucose 241 H Calculated Osmolality 296 H Calcium 9.4 Corrected Calcium 9.4 Total Bilirubin 0.6 AST 34 ALT 21 Alkaline Phosphatase 109 Troponin I Total Protein 7.7 Albumin 4.0 Globulin 3.7 H Albumin/Globulin Ratio 1.1 L ABG Interpretation ABG results: 10/27/24 10/28/24 20:08 04:35 ABG pH 7.39 7.43 ABG pCO2 33 31 L ABG pO2 333 H 100 D ABG HCO3 20 21 ABG O2 Saturation 101 H 99 H ABG Base Excess -4 L -3 Quality Measures Quality Measures none Advance care planning discussed with:: patient, spouse and child Assessment & Plan Assessment Current Active Medications: Generic Name Dose Route Start Last Admin Trade Name Freq PRN Reason Stop Dose Admin Acetaminophen 650 mg 10/27/24 18:16 10/29/24 21:42 Acetaminophen 325 Mg Tablet PO 11/26/24 18:15 650 mg Q4HR PRN Administration PAIN OR FEVER > 100.4 Protocol Hydrocodone Bitart/Acetaminophen 1 tab 10/30/24 15:00 10/31/24 08:03 Hydrocodone/Apap 5/325 Tablet PO 11/04/24 14:59 1 tab Q6HR PRN Administration Pain 4-10 Al Hydrox/Mg Hydrox/Simethicone 30 ml 10/27/24 18:16 Mg Hyd/Al Hyd/Ora (Maalox Reg) Susp 30 Ml Udc PO 11/26/24 18:15 Q4HR PRN Heartburn or Upset Stomach Albuterol/Ipratropium 3 ml 10/30/24 15:48 10/30/24 22:42 Albuterol/Ipratropium (Duoneb) Rt Patit 3 Ml Nebu INH 11/29/24 15:45 3 ml Q4H PRN Administration SHORTNESS OF BREATH OR WHEEZE Clotrimazole 0 gm 10/29/24 21:00 10/31/24 10:00 Clotrimazole Cr 1% 30 Gm Tube TOP 11/28/24 20:59 1 applicatio BID JUAN Administration Dextrose 25 ml 10/27/24 18:20 Dextrose 50%-Water Inj 50 Ml Syringe IV 11/26/24 18:19 Q15MIN PRN BG 50-70 responsive npo pt Dextrose 50 ml 10/27/24 18:20 Dextrose 50%-Water Inj 50 Ml Syringe IV 11/26/24 18:19 Q15MIN PRN BG <50 OR BG <70 & pt unresponsive Glucagon 1 mg 10/27/24 18:20 Glucagon Inj 1 Mg Vial IM Q15MIN PRN BG <70, and no IV access Heparin Sodium (Porcine) 5,000 unit 10/27/24 21:00 10/31/24 08:03 Heparin Sod Inj 5000 Unit/Ml Vial SC 11/10/24 20:59 5,000 unit Q12HR JUAN Administration Hydralazine HCl 10 mg 10/29/24 03:24 10/31/24 05:13 Hydralazine Inj 20 Mg/Ml Vial IV 11/28/24 03:23 10 mg Q8HR PRN Administration SBP>170/90 Levofloxacin/Dextrose 750 mg in 150 mls @ 100 mls/hr 11/01/24 09:00 Levaquin Ivpb IV 11/08/24 08:59 QDAY JUAN Insulin Human Lispro 0 unit 10/30/24 17:00 10/31/24 11:20 Insulin Lispro (Admelog) 1 Unit/0.01 Ml Unit SC 11/29/24 16:59 2 unit AC JUAN Administration Protocol Ketorolac Tromethamine 30 mg 10/30/24 14:59 10/31/24 11:21 Ketorolac Inj 30 Mg/Ml Vial IVP 11/04/24 14:58 30 mg Q6H PRN Administration Breakthrough Pain Magnesium Hydroxide 30 ml 10/27/24 18:16 10/30/24 15:28 Milk Of Magnesia Susp 30 Ml Udc PO 11/26/24 18:15 30 ml QDAY PRN Administration CONSTIPATION Melatonin 3 mg 10/30/24 21:00 10/30/24 23:27 Melatonin 3 Mg Tablet PO 11/29/24 20:59 3 mg HS PRN Administration INSOMNIA Nitroglycerin 0.4 mg 10/27/24 18:16 10/30/24 22:02 Nitroglycerin 0.4 Mg Subl Btl #25 SL 1 tab Q5MIN PRN Administration CHEST PAIN Pantoprazole Sodium 40 mg 10/28/24 09:00 10/31/24 08:02 Pantoprazole Inj 40 Mg Vial IVP 11/27/24 08:59 40 mg QDAY JUAN Administration Triamcinolone Acetonide 2 gm 10/29/24 18:00 10/31/24 08:24 Triamcinolone Acet Oint 0.5% 15 Gm Tube TOP 11/28/24 17:59 1 applicatio QID JUAN Administration Plan 78-year-old male with past medical history of DM2, hypertension, CAD, asthma, BPH, peripheral neuropathy, and subdural hematoma status post surgical evacuation was admitted to the ICU on 10/27/2024 due to acute encephalopathy and was downgraded to the medical floors on 10/29/2024. #Acute encephalopathy #Possible aspiration pneumonia #Hypoglycemia #Pyuria #DM2 #BPH ? Patient was altered initially and his blood glucose was 40 as per EMS ? Patient's urine was very purulent upon Madrid catheter insertion and had significant WBCs, but no bacteria ? Urine cultures have been negative ?Patient has not had any spikes in fevers and WBCs are not up trended ?Acute encephalopathy was most likely in the setting of hypoglycemia versus possible urine retention given BPH history ?Head CT only showed chronic left frontal subdural hygroma which increased in size compared to 12/24/2023 -Abdomen/pelvis CT which showed that the patient had significant right base pneumonia ?A1c 9.1% on 10/2024 ? Patient is AO x 1 only to name Plan: ? Continue levofloxacin [10/30/2024?] ?ISS ? Accu-Cheks and hypoglycemia protocol ordered ?Continue Madrid catheter -Consulted Neurology, appreciate recommendations ? Will continue to monitor #NSTEMI #HTN ? Patient did complain of some chest pain overnight and he had some elevated troponins at 0.058 which peaked and downtrended ? EKG did not show any acute ST changes or signs of ischemia at this time. ? NSTEMI most likely type II in the setting of pneumonia. Plan: -Started amlodipine 10 mg ? Echo pending ? Will continue to monitor #Diaper rash ?On assessment patient was noticed to have a rash in his groin area and extended beyond the inguinal groove. Plan: ? Will continue patient on clotrimazole cream twice daily #Hyperchloremic non-anion gap metabolic acidosis, improving ? Bicarb 20.3 and chloride 108 Plan: ? Will continue to monitor for now #Normocytic normochromic anemia ? Patient's baseline hemoglobin is around 10-11 ? Hemoglobin today 10.1 Plan: ?Will transfuse hemoglobin less than 7 ? Will continue to monitor #JANA, resolved #Hx of CAD #Hx of subdural hematoma s/p surgical repair #Subdural hygroma -restarted atorvastatin Disposition: Possible aspiration PNA, continue Abx, pending neuro recs Diet: Carb consistent GI prophylaxis: protonix DVT prophylaxis: heparin sc Code: Full code Case disclosed with Attending Dr. Sullivan and My senior Dr. Pedro PGY3. Gnee Wells PGY1
--- NOTE | 2024-10-31 14:14 | PC.SS ---
Rounding note: pending neurology consult.
[2024-10-31] MEDS: amLODIPine BESYLATE 5 MG TABLET 10 MG PO (15:00)
--- NOTE | 2024-10-31 16:11 | PD.RESCONSUL ---
HPI Data of Consult Patient: new to practice Requesting Physician: Cesar Sullivan MD Admitting Provider: Frank Lowe MD Attending Provider: Cesar Sullivan MD Primary Care Provider: Physician No Primary/Family Consult Narrative Reason for consult: encephalopathy History of present illness: 78-year-old male with a past medical history of type 2 diabetes mellitus, hypertension, CAD, asthma, GERD, BPH, peripheral neuropathy, subdural hematoma status post surgical evacuation who presented to ED on 10/27 acute encephalopathy [facility]. Not responding to questions at bedside and underwent RSI and therefore history obtained from chart review. Per EMS, blood glucose in the 40s at facility and was given D10 which increased blood glucose to 238. Also noted to have pinpoint pupils and EMS gave total of 4 mg Narcan prior to arrival with some response but patient then became altered again. Eventually patient was transferred to the ICU. Patient successfully extubated and downgraded to medsur. Patient only moans and is AO x1 (name). Neurology consulted due to encephalopathy. cc:: cc: Cesar Sullivan MD Review of Systems Review of Systems Systems Reviewed: All systems reviewed, normal except as documented Exam Vital Signs Temp Pulse Resp BP Pulse Ox O2 Del Method O2 Flow Rate 97.5 F 78 21 H 161/74 H 94 L Nasal Cannula 4 10/31/24 12:00 10/31/24 15:00 10/31/24 12:00 10/31/24 15:00 10/31/24 12:00 10/31/24 12:00 10/31/24 12:00 FiO2 35 10/28/24 12:00 Narrative Exam General: A/O x1 (only to name), moaning and uncomfortable Eyes: PERRL, but pin point, EOMI. Anicteric, vision grossly intact. Neck: Neck supple, non-tender, no cervical lymphadenopathy. Lungs: CTAB Cardio: Normal S1/S2, regular rhythm Abdomen: Soft, non-tender, no palpable masses Extremities: Symmetrical, no significant deformities, no peripheral edema , non-tender, peripheral pulses presents. Skin: No lesions, warm to touch Neuro: A/O x 1 (only to name), able to follow simple commands, not able to explain current problems. No focal deficits noted. Results Labs 10/31/24 05:16 10/31/24 05:16 Labs: Short CBC 10/31/24 Range/Units 05:16 WBC 10.1 (3.8-10.6) Thou/mm3 Hgb 10.1 L (13.5-16.0) g/dL Hct 30.6 L (41.0-53.0) % Plt Count 395 (140-440) Thou/mm3 BMP 10/31/24 05:16 Sodium 144 Potassium 4.4 D Chloride 108 H Carbon Dioxide 20.3 BUN 18 Creatinine 1.2 Glucose 241 H Calcium 9.4 Cardiac Enzymes 10/30/24 10/30/24 Range/Units 16:19 22:16 Troponin I 0.067 H* 0.063 H* (0.0-0.045) ng/mL Liver Function 10/31/24 Range/Units 05:16 Total Bilirubin 0.6 (0.3-1.2) mg/dL AST 34 (0-34) U/L ALT 21 (10-49) U/L Alkaline Phosphatase 109 (46-116) U/L Albumin 4.0 (3.4-4.8) gm/dL ABG Interpretation ABG results: 10/27/24 10/28/24 20:08 04:35 ABG pH 7.39 7.43 ABG pCO2 33 31 L ABG pO2 333 H 100 D ABG HCO3 20 21 ABG O2 Saturation 101 H 99 H ABG Base Excess -4 L -3 Quality Measures Quality Measures none Advance care planning discussed with:: other Medications Home Medications and Allergies Home Medications ?Medication ?Instructions ?Recorded ?Confirmed ?Type atorvastatin 40 mg tablet 40 mg PO HS 12/10/22 10/30/24 History pantoprazole 20 mg tablet,delayed 20 mg PO QDAY 12/10/22 10/30/24 History release acetaminophen 325 mg tablet 325 mg PO Q6H PRN Pain 12/11/22 10/30/24 History albuterol sulfate 90 mcg/actuation 2 puff inhalation Q4H PRN sob 12/11/22 10/30/24 History aerosol inhaler (ProAir HFA) amino acids-protein hydrolysate 15 30 ea PO QDAY 12/11/22 10/30/24 History gram-100 kcal/30 mL oral liquid pkt (Pro-Stat Sugar Free) benzonatate 100 mg capsule 100 mg PO Q8HR PRN Cough 12/11/22 10/30/24 History camphor 3.1 %-methyl salicylate 10 1 patch topical TID PRN Pain 12/11/22 01/12/23 History %-menthol 6 % topical patch (Salonpas) clopidogrel 75 mg tablet 75 mg PO QDAY 12/11/22 10/30/24 History doxazosin 2 mg tablet 2 mg PO HS 12/11/22 10/30/24 History insulin aspart U-100 100 unit/mL 1 sliding scale dose subcut ACHS 12/11/22 10/30/24 History subcutaneous solution (Novolog PRN hyperglycemia U-100 Insulin aspart) metoclopramide HCl 5 mg tablet 5 mg PO BID 12/11/22 10/30/24 History multivitamin with minerals 1 tab PO QDAY 12/11/22 10/30/24 History pregabalin 150 mg capsule 150 mg PO TID 12/11/22 10/30/24 History sennosides 8.6 mg tablet 8.6 mg PO QDAY 12/11/22 10/30/24 History amlodipine 10 mg tablet 10 mg PO QDAY 01/12/23 10/30/24 History megestrol 400 mg/10 mL (40 mg/mL) 200 mg PO BID 01/12/23 10/30/24 History oral suspension Nix Ultra shampoo all in one topical 10/30/24 History external kit bisacodyl 10 mg rectal suppository 10 mg KS Q72H PRN constipation 10/30/24 10/30/24 History (Dulcolax (bisacodyl)) calcium carbonate 500 mg PO Q6H PRN indigestion 10/30/24 10/30/24 History carvedilol 6.25 mg tablet 6.25 mg PO BID 10/30/24 10/30/24 History cranberry 400 mg capsule 425 mg PO QDAY 10/30/24 10/30/24 History folic acid 1 mg tablet 1 mg PO QDAY 10/30/24 10/30/24 History glucagon 1 mg injection kit 1 mg PRN 10/30/24 History hydrocodone 5 mg-acetaminophen 325 1 tab PO Q8H PRN pain 10/30/24 10/30/24 History mg tablet hydroxyzine HCl 25 mg tablet 25 mg PO Q8H PRN itching 10/30/24 10/30/24 History insulin aspart U-100 100 unit/mL 15 unit subcut .wm 10/30/24 10/30/24 History subcutaneous solution (Novolog U-100 Insulin aspart) insulin glargine 100 unit/mL (3 35 unit subcut BID 10/30/24 10/30/24 History mL) subcutaneous pen (Lantus Solostar U-100 Insulin) lactulose 20 gram/30 mL oral 20 g PO [id number] PRN constipation 10/30/24 10/30/24 History solution magnesium hydroxide 400 mg/5 mL 30 ml PO Q72H PRN constipation 10/30/24 10/30/24 History oral suspension methyl salicylate 10 %-menthol 3 % 1 patch topical Q8H PRN pain 10/30/24 10/30/24 History topical patch (Salonpas (methyl salicylate-menthol)) nutrition tx glu 1 ea PO BID 10/30/24 10/30/24 History intol,lac-free,soy-fiber 0.07 gram-0.8 kcal/mL liquid (Boost Glucose Control) ondansetron HCl 4 mg tablet 4 mg PO Q4H PRN nausea and vomiting 10/30/24 10/30/24 History pantoprazole 40 mg tablet,delayed 40 mg PO QAM 10/30/24 10/30/24 History release (Protonix) sennosides 8.6 mg-docusate sodium 2 tab-cap PO TID 10/30/24 10/30/24 History 50 mg tablet (Senna Plus) sodium phosphates 19 gram-7 118 ml KS Q72H PRN constipation 10/30/24 10/30/24 History gram/118 mL enema (Enema) tamsulosin 0.4 mg capsule 0.4 mg PO BID 10/30/24 10/30/24 History Allergies Allergy/AdvReac Type Severity Reaction Status Date / Time No Known Allergies Allergy Unverified 09/03/22 08:20 Visit Medications Acetaminophen (Acetaminophen 325 Mg Tablet) 650 mg PO Q4HR PRN; Protocol PRN Reason: PAIN OR FEVER > 100.4 Stop: 11/26/24 18:15 Last Admin: 10/29/24 21:42 Dose: 650 mg Hydrocodone Bitart/Acetaminophen (Hydrocodone/Apap 5/325 Tablet) 1 tab PO Q6HR PRN PRN Reason: Pain 4-10 Stop: 11/04/24 14:59 Last Admin: 10/31/24 08:03 Dose: 1 tab Al Hydrox/Mg Hydrox/Simethicone (Mg Hyd/Al Hyd/Ora (Maalox Reg) Susp 30 Ml Udc) 30 ml PO Q4HR PRN PRN Reason: Heartburn or Upset Stomach Stop: 11/26/24 18:15 Albuterol/Ipratropium (Albuterol/Ipratropium (Duoneb) Rt Patti 3 Ml Nebu) 3 ml INH Q4H PRN PRN Reason: SHORTNESS OF BREATH OR WHEEZE Stop: 11/29/24 15:45 Last Admin: 10/30/24 22:42 Dose: 3 ml Amlodipine Besylate (Amlodipine Besylate 5 Mg Tablet) 10 mg PO QDAY JUAN Stop: 11/30/24 14:44 Last Admin: 10/31/24 15:00 Dose: 10 mg Atorvastatin Calcium (Atorvastatin Calcium 20 Mg Tablet) 40 mg PO HS JUAN Stop: 11/30/24 20:59 Clotrimazole (Clotrimazole Cr 1% 30 Gm Tube) 0 gm TOP BID JUAN Stop: 11/28/24 20:59 Last Admin: 10/31/24 10:00 Dose: 1 applicatio Dextrose (Dextrose 50%-Water Inj 50 Ml Syringe) 25 ml IV Q15MIN PRN PRN Reason: BG 50-70 responsive npo pt Stop: 11/26/24 18:19 Dextrose (Dextrose 50%-Water Inj 50 Ml Syringe) 50 ml IV Q15MIN PRN PRN Reason: BG <50 OR BG <70 & pt unresponsive Stop: 11/26/24 18:19 Glucagon (Glucagon Inj 1 Mg Vial) 1 mg IM Q15MIN PRN PRN Reason: BG <70, and no IV access Heparin Sodium (Porcine) (Heparin Sod Inj 5000 Unit/Ml Vial) 5,000 unit SC Q12HR JUAN Stop: 11/10/24 20:59 Last Admin: 10/31/24 08:03 Dose: 5,000 unit Hydralazine HCl (Hydralazine Inj 20 Mg/Ml Vial) 10 mg IV Q8HR PRN PRN Reason: SBP>170/90 Stop: 11/28/24 03:23 Last Admin: 10/31/24 05:13 Dose: 10 mg Levofloxacin/Dextrose (Levaquin Ivpb) 750 mg in 150 mls @ 100 mls/hr IV QDAY [facility] Stop: 11/08/24 08:59 Insulin Human Lispro (Insulin Lispro (Admelog) 1 Unit/0.01 Ml Unit) 0 unit SC AC [facility]; Protocol Stop: 11/29/24 16:59 Last Admin: 10/31/24 11:20 Dose: 2 unit Ketorolac Tromethamine (Ketorolac Inj 30 Mg/Ml Vial) 30 mg IVP Q6H PRN PRN Reason: Breakthrough Pain Stop: 11/04/24 14:58 Last Admin: 10/31/24 11:21 Dose: 30 mg Magnesium Hydroxide (Milk Of Magnesia Susp 30 Ml Udc) 30 ml PO QDAY PRN PRN Reason: CONSTIPATION Stop: 11/26/24 18:15 Last Admin: 10/30/24 15:28 Dose: 30 ml Melatonin (Melatonin 3 Mg Tablet) 3 mg PO HS PRN PRN Reason: INSOMNIA Stop: 11/29/24 20:59 Last Admin: 10/30/24 23:27 Dose: 3 mg Nitroglycerin (Nitroglycerin 0.4 Mg Subl Btl #25) 0.4 mg SL Q5MIN PRN PRN Reason: CHEST PAIN Last Admin: 10/30/24 22:02 Dose: 1 tab Pantoprazole Sodium (Pantoprazole Inj 40 Mg Vial) 40 mg IVP QDAY [facility] Stop: 11/27/24 08:59 Last Admin: 10/31/24 08:02 Dose: 40 mg Triamcinolone Acetonide (Triamcinolone Acet Oint 0.5% 15 Gm Tube) 2 gm TOP QID [facility] Stop: 11/28/24 17:59 Last Admin: 10/31/24 13:06 Dose: 1 applicatio Discontinued Medications Acetylcysteine (Acetylcysteine Rt Patti 10% 4 Ml Nebu) 3 ml INH X1 ONE Stop: 10/30/24 15:47 Last Admin: 10/30/24 15:56 Dose: 3 ml Albuterol/Ipratropium (Albuterol/Ipratropium (Duoneb) Rt Patti 3 Ml Nebu) 3 ml INH Q4HRRT PRN PRN Reason: SOB/Wheeze Stop: 11/29/24 02:59 Last Admin: 10/30/24 07:34 Dose: 3 ml Albuterol/Ipratropium (Albuterol/Ipratropium (Duoneb) Rt Patti 3 Ml Nebu) 3 ml INH Q4H PRN PRN Reason: SHORTNESS OF BREATH OR WHEEZE Stop: 11/29/24 15:45 Bisacodyl (Bisacodyl 10 Mg Supp) 10 mg KS X1 ONE; Protocol Stop: 10/30/24 15:47 Last Admin: 10/30/24 17:01 Dose: 10 mg Clopidogrel Bisulfate (Clopidogrel Bisulfate 75 Mg Tablet) 75 mg PO QDAY JUAN Stop: 12/01/24 08:59 Diphenhydramine HCl (Diphenhydramine Elix 25 Mg/10 Ml Udc) 25 mg PO X1 ONE Stop: 10/30/24 01:09 Last Admin: 10/30/24 01:16 Dose: 25 mg Diphenhydramine HCl (Diphenhydramine 25 Mg Capsule) 25 mg PO X1 ONE Stop: 10/30/24 05:54 Last Admin: 10/30/24 08:16 Dose: Not Given Diphenhydramine HCl (Diphenhydramine Inj 50 Mg/Ml Vial) 25 mg IVP X1 ONE Stop: 10/30/24 08:11 Last Admin: 10/30/24 08:17 Dose: Not Given Diphenhydramine HCl (Diphenhydramine 25 Mg Capsule) 25 mg PO X1 ONE Stop: 10/30/24 22:08 Last Admin: 10/30/24 22:18 Dose: 25 mg Etomidate (Etomidate Inj 2 Mg/Ml Vial 10 Ml) 20 mg 0.3 mg/kg (20 mg) IV X1 ONE Stop: 10/27/24 17:39 Last Admin: 10/27/24 17:59 Dose: 20 mg Haloperidol Lactate (Haloperidol Lact Inj 5 Mg/Ml Vial) 2.5 mg IV X1 ONE Stop: 10/29/24 05:08 Last Admin: 10/29/24 05:28 Dose: 2.5 mg Haloperidol Lactate (Haloperidol Lact Inj 5 Mg/Ml Vial) 2.5 mg IV X1 ONE Stop: 10/30/24 02:52 Last Admin: 10/30/24 03:07 Dose: 2.5 mg Haloperidol Lactate (Haloperidol Lact Inj 5 Mg/Ml Vial) 2.5 mg IM X1 ONE Stop: 10/30/24 04:07 Last Admin: 10/30/24 04:27 Dose: 2.5 mg Hydrocortisone (Hydrocortisone Cr 0.5% 30 Gm Tube) 0 gm TOP X1 ONE Stop: 10/28/24 17:19 Last Admin: 10/28/24 17:59 Dose: Not Given Hydrocortisone (Hydrocortisone Cr 0.5% 30 Gm Tube) 0 gm TOP X1 ONE Stop: 10/29/24 16:06 Last Admin: 10/29/24 16:31 Dose: 1 gram Naloxone HCl 2 mg/ Dextrose 500 mls @ 10 mls/hr IV .Q24H JUAN Stop: 11/26/24 16:29 Last Admin: 10/27/24 21:34 Dose: Not Given Sodium Chloride (Ns) 1,000 mls @ 125 mls/hr IV .Q8H JUAN Stop: 11/26/24 16:19 Last Infusion: 10/29/24 11:01 Dose: 0 mls/hr Naloxone HCl 2 mg/ Dextrose 500 mls @ 10 mls/hr IV .Q24H JUAN Stop: 11/26/24 16:09 Last Admin: 10/27/24 19:44 Dose: Not Given Naloxone HCl 2 mg/ Dextrose 500 mls @ 10 mls/hr IV .Q24H JUAN Stop: 11/26/24 16:11 Last Admin: 10/27/24 19:44 Dose: Not Given Propofol (Diprivan Ivpb) 1,000 mg in 100 mls @ 2.041 mls/hr IV .Q24H PRN; Protocol PRN Reason: PER PROTOCOL Stop: 11/26/24 18:14 Last Titration: 10/28/24 09:00 Dose: 0 mcg/kg/min, 0 mls/hr Fentanyl Citrate (Sublimaze Inj 2,500 Mcg/250 Ml Bag) 2,500 mcg in 250 mls @ 2.5 mls/hr IV .Q24H PRN; Protocol PRN Reason: PER PROTOCOL Stop: 11/01/24 18:15 Last Titration: 10/28/24 09:50 Dose: 0 mcg/hr, 0 mls/hr Lactated Ringer's (Lactated Ringers) 1,000 mls @ 999 mls/hr IV .Q1H1M ONE Stop: 10/27/24 20:20 Last Admin: 10/27/24 19:37 Dose: 999 mls/hr Lactated Ringer's (Lactated Ringers) 1,000 mls @ 999 mls/hr IV .Q1H1M ONE Stop: 10/27/24 21:30 Last Admin: 10/27/24 20:40 Dose: 999 mls/hr Ceftriaxone Sodium 2 gm/ (Sodium Chloride) 50 mls @ 100 mls/hr IV X1 ONE Stop: 10/27/24 19:59 Last Admin: 10/27/24 19:37 Dose: 100 mls/hr Lactated Ringer's (Lactated Ringers) 1,000 mls @ 100 mls/hr IV .Q10H ONE Stop: 10/28/24 07:59 Last Infusion: 10/28/24 06:24 Dose: 0 mls/hr Ceftriaxone Sodium/Dextrose (Rocephin/D5w 2gm) 2 gm in 50 mls @ 100 mls/hr IV HS JUAN Stop: 11/04/24 20:59 Dexmedetomidine/Sodium Chloride (Precedex Ivpb) 400 mcg in 100 mls @ 3.11 mls/hr IV .Q24H PRN; Protocol PRN Reason: Per PROTOCOL Stop: 11/27/24 09:19 Dexmedetomidine/Sodium Chloride (Precedex Ivpb) 200 mcg in 50 mls @ 3.11 mls/hr IV .Q16H5M PRN; Protocol PRN Reason: Per PROTOCOL Stop: 11/27/24 09:33 Last Titration: 10/29/24 08:43 Dose: 0 mcg/kg/hr, 0 mls/hr Ceftriaxone Sodium 2 gm/ (Sodium Chloride) 50 mls @ 100 mls/hr IV QDAY ONE Stop: 10/29/24 09:35 Last Admin: 10/29/24 09:24 Dose: Not Given Ceftriaxone Sodium/Dextrose (Rocephin/D5w 2gm) 2 gm in 50 mls @ 100 mls/hr IV X1 ONE Stop: 10/29/24 09:44 Last Infusion: 10/29/24 11:01 Dose: Infused Levofloxacin/Dextrose (Levaquin Ivpb) 250 mg in 50 mls @ 50 mls/hr IV QDAY JUAN Stop: 11/06/24 08:59 Last Admin: 10/31/24 08:04 Dose: 50 mls/hr Levofloxacin/Dextrose (Levaquin Ivpb) 500 mg in 100 mls @ 100 mls/hr IV X1 ONE Stop: 10/31/24 11:22 Last Admin: 10/31/24 11:07 Dose: 100 mls/hr Insulin Human Lispro (Insulin Lispro (Admelog) 1 Unit/0.01 Ml Unit) 0 unit SC Q6HR [facility]; Protocol Stop: 11/26/24 18:29 Last Admin: 10/30/24 11:40 Dose: 2 unit Ketorolac Tromethamine (Ketorolac Inj 30 Mg/Ml Vial) 15 mg IVP X1 ONE Stop: 10/29/24 17:56 Last Admin: 10/29/24 18:31 Dose: 15 mg Ketorolac Tromethamine (Ketorolac Inj 60 Mg/2 Ml Vial) 15 mg IM X1 ONE Stop: 10/30/24 03:57 Last Admin: 10/30/24 08:17 Dose: Not Given Ketorolac Tromethamine (Ketorolac Inj 30 Mg/Ml Vial) 15 mg IVP X1 ONE Stop: 10/30/24 08:11 Last Admin: 10/30/24 08:31 Dose: 15 mg Levofloxacin (Levofloxacin 250 Mg Tablet) 250 mg PO QDAY JUAN Stop: 11/01/24 16:44 Last Admin: 10/29/24 07:57 Dose: Not Given Lorazepam (Lorazepam 0.5 Mg Tablet) 2 mg PO X1 ONE Stop: 10/29/24 12:06 Last Admin: 10/29/24 12:09 Dose: 2 mg Lorazepam (Lorazepam 2 Mg/Ml Vial) 0.5 mg IVP X1 ONE Stop: 10/30/24 08:15 Last Admin: 10/30/24 08:31 Dose: 0.5 mg Naloxone HCl (Naloxone Inj 1 Mg/Ml Syringe 2 Ml) 6 mg IV X1 ONE Stop: 10/27/24 17:11 Last Admin: 10/27/24 17:18 Dose: 6 mg Naloxone HCl (Naloxone Inj 1 Mg/Ml Syringe 2 Ml) 2 mg IV X1 ONE Stop: 10/27/24 16:09 Last Admin: 10/27/24 16:10 Dose: 2 mg Naloxone HCl (Naloxone Inj 1 Mg/Ml Syringe 2 Ml) 2 mg IV X1 ONE Stop: 10/27/24 16:11 Last Admin: 10/27/24 16:14 Dose: 2 mg Succinylcholine Chloride (Succinylcholine Inj 20 Mg/Ml Vial 10 Ml) 136 mg 2 mg/kg (136 mg) IV X1 ONE Stop: 10/27/24 17:39 Last Admin: 10/27/24 17:59 Dose: 136 mg Assessment & Plan Plan #Acute encephalopathy #Post-ICU delirium #Left chronic frontal subdural hygroma Assessment: Etiology for encephalopathy includes metabolic, infectious from possible UTI vs PNA, sedation delirium from ICU management due to intubation, delirium from hospital, Patient's urine was very purulent upon [place] catheter insertion and had significant WBCs, but no bacteria Urine cultures have been negative Patient has not had any spikes in fevers and WBCs are not up trended Acute encephalopathy was most likely in the setting of hypoglycemia versus possible urine retention given BPH history Head CT only showed chronic left frontal subdural hygroma which increased in size compared to 12/24/2023 Abdomen/pelvis CT which showed that the patient had significant right base pneumonia Recommendations: -LP from IR -EEG -we will consider MR brain w w/o after LP and EEG -cont to redirect patient -avoid benzdiazepines - Patient's care was discussed with my attending physician, Dr. Crispin Almaraz MD Internal Medicine PGY-3 Attending Provider Attestation/Addendum I personally have seen and examined the patient at the bedside and I agree with resident's findings, assessment and plan of care. Patient's mental status is improved to the point of able to answer questions appropriately but inconsistently he does else for help from time to time which is similar to baseline. This is expected from underlying dementia progression. Follow-up with EEG. Will add Seroquel 25 mg at bedtime, will hold off on lumbar puncture by IR.
[2024-10-31] MEDS: MELATONIN 3 MG TABLET PO (20:19)
[2024-10-31] MEDS: ATORVASTATIN CALCIUM 20 MG TABLET 40 MG PO (20:20)
[2024-11-01] VITALS (20 sets, daily range): BP systolic 138–179; BP diastolic 68–102; PULSE 77–98; RESP 18–27; TEMP 35.9–36.3; O2SAT 90–100; BMI 18.8
[2024-11-01] MEDS: KETOROLAC INJ 30 MG/ML VIAL IVP ×2 (00:35→12:11)
[2024-11-01] MEDS: ALBUTEROL/IPRATROPIUM (Duoneb) RT SOL 3 ML NEBU INH ×4 (01:00→19:51)
--- NOTE | 2024-11-01 02:28 | XR_ITS ---
Examination: AP chest single view Technique one AP portable upright chest single view Exam date and time: November 01, 2024 0237 hrs. Indications: Shortness of breath today. Findings: Extensive bilateral pneumonia Mild associated heart failure with mild cardiomegaly and vascular congestion Prominent osteopenia Impression: Extensive bilateral pneumonia Mild associated heart failure
[2024-11-01] MEDS: FUROSEMIDE INJ 10 MG/ML 4ML VIAL 40 MG IVP ×2 (03:10→11:27)
[2024-11-01] MEDS: OXYMETAZOLINE NAS SPRY 0.05% 15 ML BTL NASAL (03:49)
--- NOTE | 2024-11-01 04:36 | PD.RESEVENT ---
Documentation for date of: 11/01/24 Event Note Event Note: Around 3:30 AM, response was called following an episode of hemoptysis. Earlier that evening, he was found desatting in mid 80s, and subsequently transition to high flow with improved saturation. At that time, RT performed nasal suctioning and removed lots of mucus along. He developed mild epistasis following nasal suctioning. At the time the bleeding was controlled by nasal compression. However, he might have some bleeding into his posterior throat which resulted in hemoptysis for which RR was called. On arrival, he was stable, satting in upper 90s on high flow. HR in 80s, BP 160/90s. Epistasis was controlled with AFRIN x 1. There were no recurrent episodes of hemoptysis. Patient continued on high flow, satting well. Will follow-up with morning CBC. Patient case was discussed with attending, Yu Baker MD. Juan Francisco Pope DO PGYI
[2024-11-01] MEDS: TRIAMCINOLONE ACET OINT 0.5% 15 GM TUBE 2 GM TOP ×4 (05:50→21:16)
[2024-11-01 05:52] LABS: Basophils % (Auto) 0 % (0-2.5); Eosinophils % (Auto) 0 % (0-10); Hematocrit 28.2 % (41.0-53.0); Hemoglobin 9.4 g/dL (13.5-16.0); Immature Granulocytes % (Auto) 0 % (0-0); Immature Granulocytes Auto 0.04 Thou/mm3 (0.00-0.00); Lymphocytes # (Auto) 0.8 Thou/mm3 (1.0-4.8); Lymphocytes % (Auto) 8 % (10-50); Mean Corpuscular HGB Conc 33.3 g/dl (31.0-37.0); Mean Corpuscular Volume 87 fL (80-100); Monocytes # (Auto) 0.5 Thou/mm3 (0.0-0.8); Monocytes % (Auto) 5 % (0-12); Neutrophils # (Auto) 8.5 Thou/mm3 (1.8-7.7); Neutrophils % (Auto) 87 % (37-80); Nucleated Red Blood Cell % 0 /100 WBC (0); Platelet Count 416 Thou/mm3 (140-440); RDW Standard Deviation 44.8 fL (35.1-43.9); Red Blood Count 3.24 Miln/mm3 (4.50-5.90); White Blood Count 9.8 Thou/mm3 (3.8-10.6)
--- NOTE | 2024-11-01 06:14 | PC.NURSE ---
Patients son was made aware via phone conversation of application of soft hand restraints for protection from pulling off needed respiratory mask.
[2024-11-01 06:24] LABS: Alanine Aminotransferase 18 U/L (10-49); Albumin, Serum 3.6 gm/dL (3.4-4.8); Alkaline Phosphatase 96 U/L (46-116); Anion Gap 19 (7-16); Aspartate Amino Transferase 22 U/L (0-34); BUN/Creatinine Ratio 25 Ratio (12-20); Bilirubin,Total 0.6 mg/dL (0.3-1.2); Blood Urea Nitrogen 32 mg/dL (9-23); Calcium 9.2 mg/dL (8.3-10.6); Calcium (Corrected) 9.5 mg/dL (8.5-10.1); Carbon Dioxide 19.4 mMol/L (20.0-31.0); Chloride 107 mMol/L (98-107); Creatinine (Component) 1.3 mg/dL (0.6-1.3); Estimated Creatinine Clearance 43.4 mL/min (>60); Globulin 3.5 gm/dL (2.3-3.5); Glucose 285 mg/dL (74-106); Osmolality,Calculated 305 (275-295); Potassium 3.6 mMol/L (3.4-5.1); Sodium 145 mMol/L (136-145); Total Protein 7.1 gm/dL (5.7-8.2); eGFR 56 See Note
--- NOTE | 2024-11-01 07:28 | PC.NURSE ---
Spoke to Charles patients son to give him further update on fathers condition.
[2024-11-01] MEDS: INSULIN LISPRO (AdmeLOG) 1 UNIT/0.01 ML UNIT SC ×3 (07:54→17:06)
[2024-11-01] MEDS: AMPICILLIN/SULBAC INJ 1.5 GM in SODIUM CHLORIDE 0.9% (Popper) 50 ML IV ×3 (08:18→17:01)
[2024-11-01] MEDS: PANTOPRAZOLE INJ 40 MG VIAL IVP (08:26)
[2024-11-01] MEDS: amLODIPine BESYLATE 5 MG TABLET 10 MG PO (08:30)
[2024-11-01] MEDS: CLOTRIMAZOLE CR 1% 30 GM TUBE TOP ×2 (08:31→21:17)
[2024-11-01 09:15] LABS: Lactate (Lactic Acid) 1.5 mMol/L (0.4-2.0)
[2024-11-01] MEDS: hydrALAZINE INJ 20 MG/ML VIAL 10 MG IV (10:31)
--- NOTE | 2024-11-01 10:33 | RESP.EEG ---
EEG done and ready to be read.
--- NOTE | 2024-11-01 10:55 | PCS.ST ---
Pt NPO. GROUP PROGRAM MANAGER recommended MBSS. Spoke to MD about recommendations and agreeable. Awaiting MBSS order.
--- NOTE | 2024-11-01 11:00 | PC.SS ---
Rounding: Pt on Hi-Paulino for worsening PNA
--- NOTE | 2024-11-01 11:50 | ESPR_ITS ---
<Statement entered by Cesar Sullivan MD - 11/03/24 07:51> I reviewed above note and agree with findings and plans. I have also personally examined the patient with medicine team and went over assessment and plan with medical team including internal audit director and resident physician. <Statement entered by Roseanne Pedro MD - 11/01/24 14:41> I discussed with and supervised my co-resident involved in the care of this patient. I agree with the assessment and plan as documented above. RR called last night, see event note. This morning, on HFNC 40L at 70 FiO2. He is asking for water. Suspect patient aspirated on food and blood from nosebleed; aspiration pneumonia versus pneumonitis. JANA but will hold off fluids to optimize lung to wean off HFNC and change antibiotics from levofloxacin to unysyn. Will hold off LP, MRI, and barium swallow until respiratory status improves. Roseanne Pedro MD PGY-3 Documentation for date of: 11/01/24 Subjective Subjective Interval history: Patient was seen at bedside this morning. Overnight patient had a rapid response called after he had an episode of epistaxis after RT perform nasal suctioning copious amounts of mucus, but epistaxis which was controlled with Afrin but patient then also had an episode of hemoptysis, which was most likely from his epistaxis and not true hemoptysis. Patient desaturated into the mid 80s therefore he was started on high flow nasal cannula. This morning patient was also attempting to remove his high flow nasal cannula therefore he was placed on restraints. Chest x-ray was repeated during the rapid and showed worsening pneumonia and therefore placed patient n.p.o. as he has been having cough spells when he is eating and he was most likely aspirating even though he has passed speech therapy swallow eval. Will give one-time dose of Lasix 40 mg IV. Will change patient's antibiotics from levofloxacin to Unasyn for aspiration pneumonia. Will perform barium swallow study once patient is more stable from a respiratory perspective. Neurology ordered an EEG which was taken, still pending the read. Started seroquel as per neurology. Exam Vital Signs Temp Pulse Resp BP Pulse Ox O2 Del Method O2 Flow Rate 97.3 F 89 20 138/71 H 96 Nasal Cannula 40 11/01/24 08:00 11/01/24 11:27 11/01/24 11:13 11/01/24 11:27 11/01/24 11:13 11/01/24 08:00 11/01/24 11:13 FiO2 60 11/01/24 11:13 Narrative Exam General: A/O x1 (only to name), not moaning today, on HFNC Eyes: PERRL, but pin point, EOMI. Anicteric, vision grossly intact. Ears: no ear discharge, Hearing grossly intact. Nose: No nasal discharge. Mouth/Throat: Dry mucous membranes, no redness, no lesions. Neck: Neck supple, non-tender, no cervical lymphadenopathy. Lungs: Rhonchi CAMRYN, No accessory muscle use. Cardio: Normal S1/S2, regular rhythm, no murmurs, no JVD Abdomen: Soft, non-tender, no palpable masses, peristalsis present, no guarding or rebound. Extremities: Symmetrical, no significant deformities, no peripheral edema , non-tender, peripheral pulses presents. Skin: No lesions, warm to touch. Rash in groin area beyond the inguinal groove. Wound on anterior L LE Neuro: A/O x 1 (only to name), able to follow simple commands Objective Labs 11/01/24 05:14 11/01/24 05:14 Labs: Laboratory Results - last 24 hr 11/01/24 11/01/24 05:14 08:55 WBC 9.8 RBC 3.24 L Hgb 9.4 L Hct 28.2 L MCV 87 MCH 29.0 MCHC 33.3 RDW Std Deviation 44.8 H Plt Count 416 Neut % (Auto) 87 H Lymph % (Auto) 8 L [place] % (Auto) 5 Eos % (Auto) 0 Baso % (Auto) 0 Neut # (Auto) 8.5 H Lymph # (Auto) 0.8 L [place] # (Auto) 0.5 Eos # (Auto) 0.0 Baso # (Auto) 0.0 Immature Gran # (Auto) 0.04 H Absolute Nucleated RBC 0.00 Immature Gran % 0 Nucleated RBC % 0 Sodium 145 Potassium 3.6 D Chloride 107 Carbon Dioxide 19.4 L Anion Gap 19 H BUN 32 H Creatinine 1.3 Estim Creat Clear Calc 43.4 L eGFR 56 L BUN/Creatinine Ratio 25 H Glucose 285 H Calculated Osmolality 305 H Lactic Acid 1.5 Calcium 9.2 Corrected Calcium 9.5 Total Bilirubin 0.6 AST 22 ALT 18 Alkaline Phosphatase 96 Total Protein 7.1 Albumin 3.6 Globulin 3.5 Albumin/Globulin Ratio 1.0 L ABG Interpretation ABG results: 10/27/24 10/28/24 20:08 04:35 ABG pH 7.39 7.43 ABG pCO2 33 31 L ABG pO2 333 H 100 D ABG HCO3 20 21 ABG O2 Saturation 101 H 99 H ABG Base Excess -4 L -3 Quality Measures Quality Measures none Advance care planning discussed with:: patient Assessment & Plan Assessment Current Active Medications: Generic Name Dose Route Start Last Admin Trade Name Freq PRN Reason Stop Dose Admin Acetaminophen 650 mg 10/27/24 18:16 10/29/24 21:42 Acetaminophen 325 Mg Tablet PO 11/26/24 18:15 650 mg Q4HR PRN Administration PAIN OR FEVER > 100.4 Protocol Hydrocodone Bitart/Acetaminophen 1 tab 10/30/24 15:00 10/31/24 19:39 Hydrocodone/Apap 5/325 Tablet PO 11/04/24 14:59 1 tab Q6HR PRN Administration Pain 4-10 Al Hydrox/Mg Hydrox/Simethicone 30 ml 10/27/24 18:16 Mg Hyd/Al Hyd/Ora (Maalox Reg) Susp 30 Ml Udc PO 11/26/24 18:15 Q4HR PRN Heartburn or Upset Stomach Albuterol/Ipratropium 3 ml 11/01/24 07:00 11/01/24 08:22 Albuterol/Ipratropium (Duoneb) Rt Patti 3 Ml Nebu INH 12/01/24 06:59 3 ml Q6HRRT JUAN Administration Amlodipine Besylate 10 mg 10/31/24 14:45 11/01/24 08:30 Amlodipine Besylate 5 Mg Tablet PO 11/30/24 14:44 10 mg QDAY JUAN Administration Atorvastatin Calcium 40 mg 10/31/24 21:00 10/31/24 20:20 Atorvastatin Calcium 20 Mg Tablet PO 11/30/24 20:59 40 mg HS JUAN Administration Clotrimazole 0 gm 10/29/24 21:00 11/01/24 08:31 Clotrimazole Cr 1% 30 Gm Tube TOP 11/28/24 20:59 1 applicatio BID JUAN Administration Dextrose 25 ml 10/27/24 18:20 Dextrose 50%-Water Inj 50 Ml Syringe IV 11/26/24 18:19 Q15MIN PRN BG 50-70 responsive npo pt Dextrose 50 ml 10/27/24 18:20 Dextrose 50%-Water Inj 50 Ml Syringe IV 11/26/24 18:19 Q15MIN PRN BG <50 OR BG <70 & pt unresponsive Glucagon 1 mg 10/27/24 18:20 Glucagon Inj 1 Mg Vial IM Q15MIN PRN BG <70, and no IV access Guaifenesin 200 mg 11/01/24 02:36 Guaifenesin Syrup 200 Mg/10 Ml Udc PO 12/01/24 02:35 QID PRN Congestion Protocol Heparin Sodium (Porcine) 5,000 unit 10/27/24 21:00 11/01/24 08:43 Heparin Sod Inj 5000 Unit/Ml Vial SC 11/10/24 20:59 Not Given Q12HR JUAN Hydralazine HCl 10 mg 10/29/24 03:24 11/01/24 10:31 Hydralazine Inj 20 Mg/Ml Vial IV 11/28/24 03:23 10 mg Q8HR PRN Administration SBP>170/90 Ampicillin Sodium/Sulbactam 50 mls @ 100 mls/hr 11/01/24 08:00 11/01/24 11:39 Sodium 1.5 gm/ Sodium Chloride IV 11/08/24 07:59 100 mls/hr Q6HR JUAN Administration Insulin Human Lispro 0 unit 11/01/24 08:30 11/01/24 11:46 Insulin Lispro (Admelog) 1 Unit/0.01 Ml Unit SC 12/01/24 08:29 2 unit Q6HR JUAN Administration Protocol Ketorolac Tromethamine 30 mg 10/30/24 14:59 11/01/24 00:35 Ketorolac Inj 30 Mg/Ml Vial IVP 11/04/24 14:58 30 mg Q6H PRN Administration Breakthrough Pain Magnesium Hydroxide 30 ml 10/27/24 18:16 10/30/24 15:28 Milk Of Magnesia Susp 30 Ml Udc PO 11/26/24 18:15 30 ml QDAY PRN Administration CONSTIPATION Melatonin 3 mg 10/30/24 21:00 10/31/24 20:19 Melatonin 3 Mg Tablet PO 11/29/24 20:59 3 mg HS PRN Administration INSOMNIA Nitroglycerin 0.4 mg 10/27/24 18:16 10/30/24 22:02 Nitroglycerin 0.4 Mg Subl Btl #25 SL 1 tab Q5MIN PRN Administration CHEST PAIN Pantoprazole Sodium 40 mg 10/28/24 09:00 11/01/24 08:26 Pantoprazole Inj 40 Mg Vial IVP 11/27/24 08:59 40 mg QDAY JUAN Administration Triamcinolone Acetonide 2 gm 10/29/24 18:00 11/01/24 11:45 Triamcinolone Acet Oint 0.5% 15 Gm Tube TOP 11/28/24 17:59 1 applicatio QID JUAN Administration Plan 78-year-old male with past medical history of DM2, hypertension, CAD, asthma, BPH, peripheral neuropathy, and subdural hematoma status post surgical evacuation was admitted to the ICU on 10/27/2024 due to acute encephalopathy and was downgraded to the medical floors on 10/29/2024. #Acute hypoxic respiratory failure likely secondary to #Aspiration pneumonia #Dysphagia? -Abdomen/pelvis CT which showed that the patient had significant right base pneumonia ?Chest x-ray on 11/01/2024 showed extensive bilateral pneumonia, worsening from prior imaging ? Discontinue levofloxacin [10/30/2024?11/01/2024] Plan: ?Start Unasyn 1.5 g every 6 [11/01/2024?] ?Lasix 40 mg IV x 1 ?Will consider ordering barium swallow studies once patient is more stable ?Will keep patient n.p.o. for now #Acute encephalopathy #Hypoglycemia #Pyuria #DM2 #BPH ? Patient was altered initially and his blood glucose was 40 as per EMS ? Patient's urine was very purulent upon [place] catheter insertion and had significant WBCs, but no bacteria ? Urine cultures have been negative ?Patient has not had any spikes in fevers and WBCs are not up trended ?Acute encephalopathy was most likely in the setting of hypoglycemia versus possible urine retention given BPH history ?Head CT only showed chronic left frontal subdural hygroma which increased in size compared to 12/24/2023 ?A1c 9.1% on 10/2024 ? Patient is AO x 1 only to name Plan: -started Seroquel 25 mg HS -Will hold off LP. - pending EEG ?ISS ? Accu-Cheks and hypoglycemia protocol ordered ?Continue [place] catheter -Consulted Neurology, appreciate recommendations ? Will continue to monitor #HFpEF (55-60%) #NSTEMI #HTN ? Patient did complain of some chest pain overnight and he had some elevated troponins at 0.058 which peaked and downtrended ? EKG did not show any acute ST changes or signs of ischemia at this time. ? NSTEMI most likely type II in the setting of pneumonia. ? Echo showed EF 55-60% Plan: -Continue amlodipine 10 mg ? Will continue to monitor #Diaper rash ?On assessment patient was noticed to have a rash in his groin area and extended beyond the inguinal groove. Plan: ? Will continue patient on clotrimazole cream twice daily #Normocytic normochromic anemia ? Patient's baseline hemoglobin is around 10-11 ? Hemoglobin today 9.4 Plan: ?Will transfuse hemoglobin less than 7 ? Will continue to monitor #JANA, resolved #Hyperchloremic non-anion gap metabolic acidosis, improving #Hx of CAD #Hx of subdural hematoma s/p surgical repair #Subdural hygroma -Continue atorvastatin Disposition: Switch Abx to unasyn, gave LAsix 40mg x1, pending EEG read. Will get BArium swallow once more stable Diet: NPO GI prophylaxis: protonix DVT prophylaxis: heparin sc Code: Full code Case disclosed with Attending Dr. Sullivan and My senior Dr. Pedro PGY3. Gene Wells PGY1
--- NOTE | 2024-11-01 14:23 | ESPR_ITS ---
Documentation for date of: 11/01/24 Subjective Subjective Interval history: patient seen and examined in [facility]. alert to self, not combative, able to follow verbal commands. Exam Vital Signs Temp Pulse Resp BP Pulse Ox O2 Del Method O2 Flow Rate 97.4 F 89 20 174/81 H 97 High Flow Nasal Cannula 40 11/01/24 12:00 11/01/24 12:36 11/01/24 12:36 11/01/24 12:00 11/01/24 12:36 11/01/24 12:00 11/01/24 12:36 FiO2 50 11/01/24 12:36 Narrative Exam General: A/O x1 (only to name), moaning and uncomfortable Eyes: PERRL, but pin point, EOMI. Anicteric, vision grossly intact. Neck: Neck supple, non-tender, no cervical lymphadenopathy. Lungs: CTAB Cardio: Normal S1/S2, regular rhythm Abdomen: Soft, non-tender, no palpable masses Extremities: Symmetrical, no significant deformities, no peripheral edema , non-tender, peripheral pulses presents. Skin: No lesions, warm to touch Neuro: A/O x 1 (only to name), able to follow simple commands, not able to explain current problems. No focal deficits noted. Objective Labs 11/02/24 06:30 11/02/24 06:30 Labs: Laboratory Results - last 24 hr 11/01/24 11/01/24 05:14 08:55 WBC 9.8 RBC 3.24 L Hgb 9.4 L Hct 28.2 L MCV 87 MCH 29.0 MCHC 33.3 RDW Std Deviation 44.8 H Plt Count 416 Neut % (Auto) 87 H Lymph % (Auto) 8 L [place] % (Auto) 5 Eos % (Auto) 0 Baso % (Auto) 0 Neut # (Auto) 8.5 H Lymph # (Auto) 0.8 L [place] # (Auto) 0.5 Eos # (Auto) 0.0 Baso # (Auto) 0.0 Immature Gran # (Auto) 0.04 H Absolute Nucleated RBC 0.00 Immature Gran % 0 Nucleated RBC % 0 Sodium 145 Potassium 3.6 D Chloride 107 Carbon Dioxide 19.4 L Anion Gap 19 H BUN 32 H Creatinine 1.3 Estim Creat Clear Calc 43.4 L eGFR 56 L BUN/Creatinine Ratio 25 H Glucose 285 H Calculated Osmolality 305 H Lactic Acid 1.5 Calcium 9.2 Corrected Calcium 9.5 Total Bilirubin 0.6 AST 22 ALT 18 Alkaline Phosphatase 96 Total Protein 7.1 Albumin 3.6 Globulin 3.5 Albumin/Globulin Ratio 1.0 L ABG Interpretation ABG results: 10/27/24 10/28/24 20:08 04:35 ABG pH 7.39 7.43 ABG pCO2 33 31 L ABG pO2 333 H 100 D ABG HCO3 20 21 ABG O2 Saturation 101 H 99 H ABG Base Excess -4 L -3 Quality Measures Quality Measures none Advance care planning discussed with:: other Assessment & Plan Assessment Current Active Medications: Generic Name Dose Route Start Last Admin Trade Name Freq PRN Reason Stop Dose Admin Acetaminophen 650 mg 10/27/24 18:16 10/29/24 21:42 Acetaminophen 325 Mg Tablet PO 11/26/24 18:15 650 mg Q4HR PRN Administration PAIN OR FEVER > 100.4 Protocol Hydrocodone Bitart/Acetaminophen 1 tab 10/30/24 15:00 10/31/24 19:39 Hydrocodone/Apap 5/325 Tablet PO 11/04/24 14:59 1 tab Q6HR PRN Administration Pain 4-10 Al Hydrox/Mg Hydrox/Simethicone 30 ml 10/27/24 18:16 Mg Hyd/Al Hyd/Ora (Maalox Reg) Susp 30 Ml Udc PO 11/26/24 18:15 Q4HR PRN Heartburn or Upset Stomach Albuterol/Ipratropium 3 ml 11/01/24 07:00 11/01/24 12:35 Albuterol/Ipratropium (Duoneb) Rt Patti 3 Ml Nebu INH 12/01/24 06:59 3 ml Q6HRRT JUAN Administration Amlodipine Besylate 10 mg 10/31/24 14:45 11/01/24 08:30 Amlodipine Besylate 5 Mg Tablet PO 11/30/24 14:44 10 mg QDAY JUAN Administration Atorvastatin Calcium 40 mg 10/31/24 21:00 10/31/24 20:20 Atorvastatin Calcium 20 Mg Tablet PO 11/30/24 20:59 40 mg HS JUAN Administration Clotrimazole 0 gm 10/29/24 21:00 11/01/24 08:31 Clotrimazole Cr 1% 30 Gm Tube TOP 11/28/24 20:59 1 applicatio BID JUAN Administration Dextrose 25 ml 10/27/24 18:20 Dextrose 50%-Water Inj 50 Ml Syringe IV 11/26/24 18:19 Q15MIN PRN BG 50-70 responsive npo pt Dextrose 50 ml 10/27/24 18:20 Dextrose 50%-Water Inj 50 Ml Syringe IV 11/26/24 18:19 Q15MIN PRN BG <50 OR BG <70 & pt unresponsive Glucagon 1 mg 10/27/24 18:20 Glucagon Inj 1 Mg Vial IM Q15MIN PRN BG <70, and no IV access Guaifenesin 200 mg 11/01/24 02:36 Guaifenesin Syrup 200 Mg/10 Ml Udc PO 12/01/24 02:35 QID PRN Congestion Protocol Heparin Sodium (Porcine) 5,000 unit 10/27/24 21:00 11/01/24 08:43 Heparin Sod Inj 5000 Unit/Ml Vial SC 11/10/24 20:59 Not Given Q12HR JUAN Hydralazine HCl 10 mg 10/29/24 03:24 11/01/24 10:31 Hydralazine Inj 20 Mg/Ml Vial IV 11/28/24 03:23 10 mg Q8HR PRN Administration SBP>170/90 Ampicillin Sodium/Sulbactam 50 mls @ 100 mls/hr 11/01/24 08:00 11/01/24 11:39 Sodium 1.5 gm/ Sodium Chloride IV 11/08/24 07:59 100 mls/hr Q6HR JUAN Administration Insulin Human Lispro 0 unit 11/01/24 08:30 11/01/24 11:46 Insulin Lispro (Admelog) 1 Unit/0.01 Ml Unit SC 12/01/24 08:29 2 unit Q6HR JUAN Administration Protocol Ketorolac Tromethamine 15 mg 11/01/24 14:14 Ketorolac Inj 30 Mg/Ml Vial IVP 11/04/24 14:58 Q6H PRN Breakthrough Pain Magnesium Hydroxide 30 ml 10/27/24 18:16 10/30/24 15:28 Milk Of Magnesia Susp 30 Ml Udc PO 11/26/24 18:15 30 ml QDAY PRN Administration CONSTIPATION Melatonin 3 mg 10/30/24 21:00 10/31/24 20:19 Melatonin 3 Mg Tablet PO 11/29/24 20:59 3 mg HS PRN Administration INSOMNIA Nitroglycerin 0.4 mg 10/27/24 18:16 10/30/24 22:02 Nitroglycerin 0.4 Mg Subl Btl #25 SL 1 tab Q5MIN PRN Administration CHEST PAIN Pantoprazole Sodium 40 mg 10/28/24 09:00 11/01/24 08:26 Pantoprazole Inj 40 Mg Vial IVP 11/27/24 08:59 40 mg QDAY JUAN Administration Quetiapine Fumarate 25 mg 11/01/24 21:00 Quetiapine Fumarate 25 Mg Tablet PO 12/01/24 20:59 HS JUAN Triamcinolone Acetonide 2 gm 10/29/24 18:00 11/01/24 11:45 Triamcinolone Acet Oint 0.5% 15 Gm Tube TOP 11/28/24 17:59 1 applicatio QID JUAN Administration Plan #Acute encephalopathy, improved #?Dementia #Post-ICU delirium #Left chronic frontal subdural hygroma Assessment: Etiology for encephalopathy includes metabolic, infectious from possible UTI vs PNA, sedation delirium from ICU management due to intubation, delirium from hospital, Patient's urine was very purulent upon [place] catheter insertion and had significant WBCs, but no bacteria Urine cultures have been negative Patient has not had any spikes in fevers and WBCs are not up trended Acute encephalopathy was most likely in the setting of hypoglycemia versus possible urine retention given BPH history Head CT only showed chronic left frontal subdural hygroma which increased in size compared to 12/24/2023 Abdomen/pelvis CT which showed that the patient had significant right base pneumonia Recommendations: -add seroquel 25mg HS -hold off LP from IR -cont to redirect patient -avoid benzdiazepines - Patient's care was discussed with my attending physician, Dr. Crispin Almaraz MD Internal Medicine PGY-3 Attending Provider Attestation/Addendum Seen and examined the patient at the bedside and I agree with resident's findings, assessment and plan of care. Will continue with supportive care.
[2024-11-01] MEDS: HYDROcodone/APAP 5/325 TABLET 1 TAB PO (21:16)
[2024-11-01] MEDS: QUEtiapine FUMARATE 25 MG TABLET PO (21:16)
[2024-11-01] MEDS: ATORVASTATIN CALCIUM 20 MG TABLET 40 MG PO (21:16)
[2024-11-01] MEDS: HEPARIN SOD INJ 5000 UNIT/ML VIAL SC (21:38)
[2024-11-02] VITALS (14 sets, daily range): BP systolic 136–170; BP diastolic 63–88; PULSE 75–95; RESP 16–22; TEMP 36.1–36.6; O2SAT 92–100; BMI 18.7
[2024-11-02] MEDS: AMPICILLIN/SULBAC INJ 1.5 GM in SODIUM CHLORIDE 0.9% (Popper) 50 ML IV ×4 (00:12→17:12)
[2024-11-02] MEDS: ALBUTEROL/IPRATROPIUM (Duoneb) RT SOL 3 ML NEBU INH ×4 (01:00→19:53)
--- NOTE | 2024-11-02 02:30 | PC.NURSE ---
PATIENT AWAKE,CALM AND RELAXED,BILATERAL WRIST RESTRAINT REMOVED.
[2024-11-02] MEDS: TRIAMCINOLONE ACET OINT 0.5% 15 GM TUBE 2 GM TOP ×3 (05:25→17:12)
[2024-11-02] MEDS: INSULIN LISPRO (AdmeLOG) 1 UNIT/0.01 ML UNIT SC ×3 (05:53→17:12)
[2024-11-02 07:34] LABS: Basophils % (Auto) 0 % (0-2.5); Eosinophils % (Auto) 0 % (0-10); Hematocrit 29.8 % (41.0-53.0); Hemoglobin 9.9 g/dL (13.5-16.0); Immature Granulocytes % (Auto) 1 % (0-0); Immature Granulocytes Auto 0.03 Thou/mm3 (0.00-0.00); Lymphocytes # (Auto) 0.9 Thou/mm3 (1.0-4.8); Lymphocytes % (Auto) 15 % (10-50); Mean Corpuscular HGB Conc 33.2 g/dl (31.0-37.0); Mean Corpuscular Hemoglobin 28.4 pg (25.0-35.0); Mean Corpuscular Volume 85 fL (80-100); Monocytes # (Auto) 0.4 Thou/mm3 (0.0-0.8); Monocytes % (Auto) 7 % (0-12); Neutrophils # (Auto) 4.8 Thou/mm3 (1.8-7.7); Neutrophils % (Auto) 78 % (37-80); Nucleated Red Blood Cell % 0 /100 WBC (0); Platelet Count 404 Thou/mm3 (140-440); RDW Standard Deviation 44.5 fL (35.1-43.9); Red Blood Count 3.49 Miln/mm3 (4.50-5.90); White Blood Count 6.2 Thou/mm3 (3.8-10.6)
[2024-11-02 07:48] LABS: Alanine Aminotransferase 17 U/L (10-49); Albumin, Serum 3.4 gm/dL (3.4-4.8); Albumin/Globulin Ratio 1.1 (1.2-2.2); Alkaline Phosphatase 91 U/L (46-116); Anion Gap 15 (7-16); Aspartate Amino Transferase 15 U/L (0-34); BUN/Creatinine Ratio 31 Ratio (12-20); Bilirubin,Total 0.5 mg/dL (0.3-1.2); Blood Urea Nitrogen 40 mg/dL (9-23); C-Reactive Protein 15.4 mg/dL (0.0-0.9); Calcium 8.8 mg/dL (8.3-10.6); Calcium (Corrected) 9.3 mg/dL (8.5-10.1); Carbon Dioxide 24.3 mMol/L (20.0-31.0); Chloride 110 mMol/L (98-107); Creatinine (Component) 1.3 mg/dL (0.6-1.3); Estimated Creatinine Clearance 41.6 mL/min (>60); Globulin 3.2 gm/dL (2.3-3.5); Glucose 324 mg/dL (74-106); Magnesium 2.1 mg/dL (1.6-2.6); Osmolality,Calculated 318 (275-295); Potassium 3.2 mMol/L (3.4-5.1); Sodium 149 mMol/L (136-145); Total Protein 6.6 gm/dL (5.7-8.2); eGFR 56 See Note
[2024-11-02] MEDS: PANTOPRAZOLE INJ 40 MG VIAL IVP (09:09)
[2024-11-02] MEDS: HEPARIN SOD INJ 5000 UNIT/ML VIAL SC ×2 (09:09→20:09)
[2024-11-02] MEDS: amLODIPine BESYLATE 5 MG TABLET 10 MG PO (09:09)
[2024-11-02] MEDS: POTASSIUM CHL 10 mEq IVPB 10 MEQ/100 ML BAG 100 MEQ IV ×3 (09:09→11:16)
[2024-11-02] MEDS: CLOTRIMAZOLE CR 1% 30 GM TUBE TOP ×2 (09:10→20:22)
--- NOTE | 2024-11-02 10:35 | ESPR_ITS ---
<Statement entered by Cesar Sullivan MD - 11/04/24 13:24> I reviewed above note and agree with findings and plans. I have also personally examined the patient with medicine team and went over assessment and plan with medical team including validation intern and resident physician. Documentation for date of: 11/02/24 Subjective Subjective Interval history: Patient was seen at bedside this morning. No overnight events. Patient's lungs do sound a little bit clearer, but still some rhonchi bilaterally heard. Patient potassium was low, patient continues to be n.p.o. for now therefore we will give IV potassium. Patient's kidney function is stable for now, will hold off on barium swallow study until patient's respiratory demands decreased. Tried contacting the patient's family members today to discuss patient's current condition and possibly schedule for goals of care discussion at this time. 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 Exam Vital Signs Temp Pulse Resp BP Pulse Ox O2 Del Method O2 Flow Rate 97.6 F 95 18 136/65 H 92 L High Flow Nasal Cannula 20 11/02/24 08:00 11/02/24 09:09 11/02/24 08:00 11/02/24 09:09 11/02/24 08:00 11/02/24 08:00 11/02/24 08:00 FiO2 40 11/02/24 06:32 Narrative Exam General: Resting peacefully in bed, on HFNC Eyes: PERRL, EOMI. Anicteric, vision grossly intact. Ears: no ear discharge, Hearing grossly intact. Nose: No nasal discharge. Mouth/Throat: Dry mucous membranes, no redness, no lesions. Neck: Neck supple, non-tender, no cervical lymphadenopathy. Lungs: mild Rhonchi CAMRYN improved form yesterday, No accessory muscle use. Cardio: Normal S1/S2, regular rhythm, no murmurs, no JVD Abdomen: Soft, non-tender, no palpable masses, peristalsis present, no guarding or rebound. Extremities: Symmetrical, no significant deformities, no peripheral edema , non-tender, peripheral pulses presents. Skin: No lesions, warm to touch. Rash in groin area beyond the inguinal groove. Wound on anterior L LE Neuro: A/O x 1 (only to name), able to follow simple commands Objective Labs 11/02/24 06:30 11/02/24 06:30 Labs: Laboratory Results - last 24 hr 11/02/24 06:30 WBC 6.2 RBC 3.49 L Hgb 9.9 L Hct 29.8 L MCV 85 MCH 28.4 MCHC 33.2 RDW Std Deviation 44.5 H Plt Count 404 Neut % (Auto) 78 Lymph % (Auto) 15 [place] % (Auto) 7 Eos % (Auto) 0 Baso % (Auto) 0 Neut # (Auto) 4.8 Lymph # (Auto) 0.9 L [place] # (Auto) 0.4 Eos # (Auto) 0.0 Baso # (Auto) 0.0 Immature Gran # (Auto) 0.03 H Absolute Nucleated RBC 0.00 Immature Gran % 1 H Nucleated RBC % 0 Sodium 149 H Potassium 3.2 L Chloride 110 H Carbon Dioxide 24.3 Anion Gap 15 BUN 40 H Creatinine 1.3 Estim Creat Clear Calc 41.6 L eGFR 56 L BUN/Creatinine Ratio 31 H Glucose 324 H Calculated Osmolality 318 H Calcium 8.8 Corrected Calcium 9.3 Magnesium 2.1 Total Bilirubin 0.5 AST 15 ALT 17 Alkaline Phosphatase 91 C-Reactive Prot, Quant 15.4 H Total Protein 6.6 Albumin 3.4 Globulin 3.2 Albumin/Globulin Ratio 1.1 L ABG Interpretation ABG results: 10/27/24 10/28/24 20:08 04:35 ABG pH 7.39 7.43 ABG pCO2 33 31 L ABG pO2 333 H 100 D ABG HCO3 20 21 ABG O2 Saturation 101 H 99 H ABG Base Excess -4 L -3 Quality Measures Quality Measures none Advance care planning discussed with:: patient Assessment & Plan Assessment Current Active Medications: Generic Name Dose Route Start Last Admin Trade Name Freq PRN Reason Stop Dose Admin Acetaminophen 650 mg 10/27/24 18:16 10/29/24 21:42 Acetaminophen 325 Mg Tablet PO 11/26/24 18:15 650 mg Q4HR PRN Administration PAIN OR FEVER > 100.4 Protocol Hydrocodone Bitart/Acetaminophen 1 tab 10/30/24 15:00 11/01/24 21:16 Hydrocodone/Apap 5/325 Tablet PO 11/04/24 14:59 1 tab Q6HR PRN Administration Pain 4-10 Al Hydrox/Mg Hydrox/Simethicone 30 ml 10/27/24 18:16 Mg Hyd/Al Hyd/Ora (Maalox Reg) Susp 30 Ml Udc PO 11/26/24 18:15 Q4HR PRN Heartburn or Upset Stomach Albuterol/Ipratropium 3 ml 11/01/24 07:00 11/02/24 06:31 Albuterol/Ipratropium (Duoneb) Rt Patti 3 Ml Nebu INH 12/01/24 06:59 3 ml Q6HRRT JUAN Administration Amlodipine Besylate 10 mg 10/31/24 14:45 11/02/24 09:09 Amlodipine Besylate 5 Mg Tablet PO 11/30/24 14:44 10 mg QDAY JUAN Administration Atorvastatin Calcium 40 mg 10/31/24 21:00 11/01/24 21:16 Atorvastatin Calcium 20 Mg Tablet PO 11/30/24 20:59 40 mg HS JUAN Administration Clotrimazole 0 gm 10/29/24 21:00 11/02/24 09:10 Clotrimazole Cr 1% 30 Gm Tube TOP 11/28/24 20:59 1 applicatio BID JUAN Administration Dextrose 25 ml 10/27/24 18:20 Dextrose 50%-Water Inj 50 Ml Syringe IV 11/26/24 18:19 Q15MIN PRN BG 50-70 responsive npo pt Dextrose 50 ml 10/27/24 18:20 Dextrose 50%-Water Inj 50 Ml Syringe IV 11/26/24 18:19 Q15MIN PRN BG <50 OR BG <70 & pt unresponsive Glucagon 1 mg 10/27/24 18:20 Glucagon Inj 1 Mg Vial IM Q15MIN PRN BG <70, and no IV access Guaifenesin 200 mg 11/01/24 02:36 Guaifenesin Syrup 200 Mg/10 Ml Udc PO 12/01/24 02:35 QID PRN Congestion Protocol Heparin Sodium (Porcine) 5,000 unit 10/27/24 21:00 11/02/24 09:09 Heparin Sod Inj 5000 Unit/Ml Vial SC 11/10/24 20:59 5,000 unit Q12HR JUAN Administration Hydralazine HCl 10 mg 10/29/24 03:24 11/01/24 10:31 Hydralazine Inj 20 Mg/Ml Vial IV 11/28/24 03:23 10 mg Q8HR PRN Administration SBP>170/90 Ampicillin Sodium/Sulbactam 50 mls @ 100 mls/hr 11/01/24 08:00 11/02/24 05:51 Sodium 1.5 gm/ Sodium Chloride IV 11/08/24 07:59 Infused Q6HR JUAN Infusion Potassium Chloride 10 meq in 100 mls @ 100 mls/hr 11/02/24 08:29 11/02/24 10:12 Kcl Ivpb IV 11/02/24 11:28 100 mls/hr Q1H JUAN Administration Insulin Human Lispro 0 unit 11/01/24 08:30 11/02/24 05:53 Insulin Lispro (Admelog) 1 Unit/0.01 Ml Unit SC 12/01/24 08:29 4 unit Q6HR JUAN Administration Protocol Ketorolac Tromethamine 15 mg 11/01/24 14:14 Ketorolac Inj 30 Mg/Ml Vial IVP 11/04/24 14:58 Q6H PRN Breakthrough Pain Magnesium Hydroxide 30 ml 10/27/24 18:16 10/30/24 15:28 Milk Of Magnesia Susp 30 Ml Udc PO 11/26/24 18:15 30 ml QDAY PRN Administration CONSTIPATION Melatonin 3 mg 10/30/24 21:00 10/31/24 20:19 Melatonin 3 Mg Tablet PO 11/29/24 20:59 3 mg HS PRN Administration INSOMNIA Nitroglycerin 0.4 mg 10/27/24 18:16 10/30/24 22:02 Nitroglycerin 0.4 Mg Subl Btl #25 SL 1 tab Q5MIN PRN Administration CHEST PAIN Pantoprazole Sodium 40 mg 10/28/24 09:00 11/02/24 09:09 Pantoprazole Inj 40 Mg Vial IVP 11/27/24 08:59 40 mg QDAY JUAN Administration Quetiapine Fumarate 25 mg 11/01/24 21:00 11/01/24 21:16 Quetiapine Fumarate 25 Mg Tablet PO 12/01/24 20:59 25 mg HS JUAN Administration Triamcinolone Acetonide 2 gm 10/29/24 18:00 11/02/24 05:25 Triamcinolone Acet Oint 0.5% 15 Gm Tube TOP 11/28/24 17:59 1 applicatio QID JUAN Administration Plan 78-year-old male with past medical history of DM2, hypertension, CAD, asthma, BPH, peripheral neuropathy, and subdural hematoma status post surgical evacuation was admitted to the ICU on 10/27/2024 due to acute encephalopathy and was downgraded to the medical floors on 10/29/2024. #Acute hypoxic respiratory failure likely secondary to #Aspiration pneumonia #Dysphagia? -Abdomen/pelvis CT which showed that the patient had significant right base pneumonia ?Chest x-ray on 11/01/2024 showed extensive bilateral pneumonia, worsening from prior imaging ? Discontinue levofloxacin [10/30/2024?11/01/2024] Plan: ?Continue Unasyn 1.5 g every 6 [11/01/2024?] ?Will consider ordering barium swallow studies once patient is more stable ?Will keep patient n.p.o. for now #Acute encephalopathy #Hypoglycemia #Pyuria #DM2 #BPH ? Patient was altered initially and his blood glucose was 40 as per EMS ? Patient's urine was very purulent upon Madrid catheter insertion and had significant WBCs, but no bacteria ? Urine cultures have been negative ?Patient has not had any spikes in fevers and WBCs are not up trended ?Acute encephalopathy was most likely in the setting of hypoglycemia versus possible urine retention given BPH history ?Head CT only showed chronic left frontal subdural hygroma which increased in size compared to 12/24/2023 ?A1c 9.1% on 10/2024 ? Patient is AO x 1 only to name Plan: -Continue Seroquel 25 mg HS -Will hold off LP. - pending EEG ?ISS ? Accu-Cheks and hypoglycemia protocol ordered ?Continue Madrid catheter -Consulted Neurology, appreciate recommendations ? Will continue to monitor #HFpEF (55-60%) #NSTEMI #HTN ? Patient did complain of some chest pain overnight and he had some elevated troponins at 0.058 which peaked and downtrended ? EKG did not show any acute ST changes or signs of ischemia at this time. ? NSTEMI most likely type II in the setting of pneumonia. ? Echo showed EF 55-60% Plan: -Continue amlodipine 10 mg ? Will continue to monitor #Diaper rash ?On assessment patient was noticed to have a rash in his groin area and extended beyond the inguinal groove. Plan: ? Will continue patient on clotrimazole cream twice daily #Normocytic normochromic anemia ? Patient's baseline hemoglobin is around 10-11 ? Hemoglobin today 9.9 Plan: ?Will transfuse hemoglobin less than 7 ? Will continue to monitor #Hypokalemia - K 3.2 today - 30 meq of potassium x1 #JANA, resolved #Hyperchloremic non-anion gap metabolic acidosis, improving #Hx of CAD #Hx of subdural hematoma s/p surgical repair #Subdural hygroma -Continue atorvastatin once able to swallow Disposition: Contine unasyn, pending EEG read. Will get BArium swallow once more stable, and have goals of care with family. Diet: NPO GI prophylaxis: protonix DVT prophylaxis: heparin sc Code: Full code Case disclosed with Attending Dr. Nate Wells PGY1
--- NOTE | 2024-11-02 10:40 | CHAP ---
Patient was sleeping, but said a silent prayer by the doorway.
--- NOTE | 2024-11-02 10:43 | PC.SS ---
SS spoke to Dr. Mack in regards to being unable to reach family to set up a goals of care. SS attempted to make contact with pt and AMARILYS Morrell [phone], no answer. VM left for call back.
--- NOTE | 2024-11-02 16:27 | PC.NURSE ---
Patient on room air since 15:50. Will continue to monitor patient.
[2024-11-02] MEDS: HYDROcodone/APAP 5/325 TABLET 1 TAB PO (17:29)
[2024-11-02] MEDS: ATORVASTATIN CALCIUM 20 MG TABLET 40 MG PO (20:09)
[2024-11-02] MEDS: QUEtiapine FUMARATE 25 MG TABLET PO (20:09)
[2024-11-02] MEDS: MELATONIN 3 MG TABLET PO (20:20)
--- NOTE | 2024-11-02 22:32 | PD.NEUROPROG ---
Documentation for date of: 11/02/24 Subjective Subjective Interval history: Patient was seen in [facility] today. No new symptoms reported. He still on restraints. Resting now. Exam - Neurology Vital Signs Temp Pulse Resp BP Pulse Ox O2 Del Method O2 Flow Rate 97.8 F 91 20 164/88 H 100 Oxy Mask 3 11/02/24 19:48 11/02/24 19:53 11/02/24 19:53 11/02/24 19:48 11/02/24 19:53 11/02/24 19:48 11/02/24 19:53 FiO2 30 11/02/24 13:22 Narrative Exam GENERAL APPEARANCE: Well developed, well nourished male in no distress. HEENT: Normocephalic, atraumatic, extraocular movements intact. Pupils: Equal reacting to light NECK: Supple, no JVD or bruits. CARDIOVASULAR: Heart: S1, S2 heard, regular without S3-S4 or murmur no rubs or gallops. LUNGS/CHEST: Clear breath sounds heard bilaterally. ABDOMEN: Soft, with normal bowel sounds. No pulsatile masses. EXTREMITIES: Normal inspection and palpation. No edema, clubbing or cyanosis. SKIN: Warm and dry without rashes. Normal inspection. MUSCULOSKELETAL: No cervical, thoracic, lumbar or midline bony tenderness. Normal inspection. NEURO: Resting now. PSYCHIATRIC: Limited Objective Labs 11/02/24 06:30 11/02/24 06:30 Labs: Laboratory Results - last 24 hr 11/02/24 06:30 WBC 6.2 RBC 3.49 L Hgb 9.9 L Hct 29.8 L MCV 85 MCH 28.4 MCHC 33.2 RDW Std Deviation 44.5 H Plt Count 404 Neut % (Auto) 78 Lymph % (Auto) 15 [place] % (Auto) 7 Eos % (Auto) 0 Baso % (Auto) 0 Neut # (Auto) 4.8 Lymph # (Auto) 0.9 L [place] # (Auto) 0.4 Eos # (Auto) 0.0 Baso # (Auto) 0.0 Immature Gran # (Auto) 0.03 H Absolute Nucleated RBC 0.00 Immature Gran % 1 H Nucleated RBC % 0 Sodium 149 H Potassium 3.2 L Chloride 110 H Carbon Dioxide 24.3 Anion Gap 15 BUN 40 H Creatinine 1.3 Estim Creat Clear Calc 41.6 L eGFR 56 L BUN/Creatinine Ratio 31 H Glucose 324 H Calculated Osmolality 318 H Calcium 8.8 Corrected Calcium 9.3 Magnesium 2.1 Total Bilirubin 0.5 AST 15 ALT 17 Alkaline Phosphatase 91 C-Reactive Prot, Quant 15.4 H Total Protein 6.6 Albumin 3.4 Globulin 3.2 Albumin/Globulin Ratio 1.1 L ABG Interpretation ABG results: 10/27/24 10/28/24 20:08 04:35 ABG pH 7.39 7.43 ABG pCO2 33 31 L ABG pO2 333 H 100 D ABG HCO3 20 21 ABG O2 Saturation 101 H 99 H ABG Base Excess -4 L -3 Assessment & Plan Additional Assessment & Plan Additional Plan: #Acute encephalopathy, improved #?Dementia likely at baseline #Post-ICU delirium #Left chronic frontal subdural hygroma Assessment: Etiology for encephalopathy includes metabolic, infectious from possible UTI vs PNA, sedation delirium from ICU management due to intubation, delirium from hospital, Patient's urine was very purulent upon Madrid catheter insertion and had significant WBCs, but no bacteria Urine cultures have been negative Patient has not had any spikes in fevers and WBCs are not up trended Acute encephalopathy was most likely in the setting of hypoglycemia versus possible urine retention given BPH history Head CT :chronic left frontal subdural hygroma which increased in size compared to 12/24/2023 Abdomen/pelvis CT: significant right base pneumonia Continue with the Seroquel 25 mg at bedtime, will hold off on lumbar puncture as his mental status is improving and he is redirectable
[2024-11-03] VITALS (12 sets, daily range): BP systolic 119–182; BP diastolic 67–99; PULSE 2–92; RESP 15–24; TEMP 35.9–36.6; O2SAT 93–100
[2024-11-03] MEDS: AMPICILLIN/SULBAC INJ 1.5 GM in SODIUM CHLORIDE 0.9% (Popper) 50 ML IV ×5 (00:23→23:28)
[2024-11-03] MEDS: INSULIN LISPRO (AdmeLOG) 1 UNIT/0.01 ML UNIT SC ×5 (00:24→23:29)
[2024-11-03] MEDS: ALBUTEROL/IPRATROPIUM (Duoneb) RT SOL 3 ML NEBU INH ×4 (00:51→18:35)
[2024-11-03 05:23] LABS: Basophils % (Auto) 0 % (0-2.5); Eosinophils % (Auto) 0 % (0-10); Hematocrit 29.3 % (41.0-53.0); Hemoglobin 9.7 g/dL (13.5-16.0); Immature Granulocytes % (Auto) 1 % (0-0); Immature Granulocytes Auto 0.03 Thou/mm3 (0.00-0.00); Lymphocytes # (Auto) 1.2 Thou/mm3 (1.0-4.8); Lymphocytes % (Auto) 21 % (10-50); Mean Corpuscular HGB Conc 33.1 g/dl (31.0-37.0); Mean Corpuscular Hemoglobin 28.6 pg (25.0-35.0); Mean Corpuscular Volume 86 fL (80-100); Monocytes # (Auto) 0.6 Thou/mm3 (0.0-0.8); Monocytes % (Auto) 10 % (0-12); Neutrophils # (Auto) 3.8 Thou/mm3 (1.8-7.7); Neutrophils % (Auto) 68 % (37-80); Nucleated Red Blood Cell % 0 /100 WBC (0); Platelet Count 414 Thou/mm3 (140-440); RDW Standard Deviation 45.4 fL (35.1-43.9); Red Blood Count 3.39 Miln/mm3 (4.50-5.90); White Blood Count 5.6 Thou/mm3 (3.8-10.6)
[2024-11-03 05:50] LABS: Alanine Aminotransferase 14 U/L (10-49); Albumin, Serum 3.4 gm/dL (3.4-4.8); Alkaline Phosphatase 84 U/L (46-116); Anion Gap 10 (7-16); Aspartate Amino Transferase < 10 U/L (0-34); BUN/Creatinine Ratio 33 Ratio (12-20); Bilirubin,Total 0.5 mg/dL (0.3-1.2); Blood Urea Nitrogen 40 mg/dL (9-23); Calcium 8.9 mg/dL (8.3-10.6); Calcium (Corrected) 9.4 mg/dL (8.5-10.1); Carbon Dioxide 27.2 mMol/L (20.0-31.0); Chloride 117 mMol/L (98-107); Creatinine (Component) 1.2 mg/dL (0.6-1.3); Globulin 3.4 gm/dL (2.3-3.5); Glucose 279 mg/dL (74-106); Magnesium 2.4 mg/dL (1.6-2.6); Osmolality,Calculated 325 (275-295); Potassium 3.2 mMol/L (3.4-5.1); Sodium 154 mMol/L (136-145); Total Protein 6.8 gm/dL (5.7-8.2); eGFR > 60 See Note
[2024-11-03] MEDS: TRIAMCINOLONE ACET OINT 0.5% 15 GM TUBE 2 GM TOP ×4 (06:47→20:51)
[2024-11-03] MEDS: DEXTROSE 5%-WATER 1,000 ML 50 ML IV (09:02)
[2024-11-03] MEDS: POTASSIUM CHL 10 mEq IVPB 10 MEQ/100 ML BAG 100 MEQ IV ×4 (09:02→12:33)
[2024-11-03] MEDS: HEPARIN SOD INJ 5000 UNIT/ML VIAL SC ×2 (09:03→20:35)
[2024-11-03] MEDS: INSULIN GLARGINE (Lantus) 5 UNIT/0.05 ML (PER 5 UNITS) 10 UNIT SC (09:04)
[2024-11-03] MEDS: CLOTRIMAZOLE CR 1% 30 GM TUBE TOP ×2 (09:06→20:50)
[2024-11-03] MEDS: PANTOPRAZOLE INJ 40 MG VIAL IVP (09:21)
[2024-11-03] MEDS: amLODIPine BESYLATE 5 MG TABLET 10 MG PO (09:21)
--- NOTE | 2024-11-03 11:16 | XR_ITS ---
Examination: CT brain head without contrast. 2-D sagittal coronal reconstructions Date and time of exam:11/03/2024, 20 2:00 PM INDICATION: Encephalopathy. Comparison: 10/27/2024 CTDI: vol (mGy):51.7 DLP: (mGycm):927 Technique: Multiple CT axial sections of the brain have been obtained, 5 mm slice thickness. Contrast has not been administered. 2-D sagittal, coronal reconstructions have been obtained Low dose protocols were performed. One or more of the following dose reduction techniques were used; automated exposure control, adjustment of the mA and/or KV according to patient size, use of iterative reconstruction technique. Findings: Study limited by motion artifact. No significant ventricular enlargement. Intra-axial or extra-axial hemorrhage density is not seen. Stable chronic frontal hygroma unchanged from prior exam. . Otherwise, no mass effect or midline shift Basal cisterns are not remarkable. Fourth ventricle is midline. Stable right frontal paul hole. Cranial vault otherwise intact. Impression: Study limited by motion artifact. Stable chronic changes as above. Negative for acute hemorrhage, mass effect or midline shift
--- NOTE | 2024-11-03 13:13 | ESPR_ITS ---
<Statement entered by Cesar Sullivan MD - 11/08/24 04:06> I reviewed above note and agree with findings and plans. I have also personally examined the patient with medicine team and went over assessment and plan with medical team including leadership program intern and resident physician. <Statement entered by Mark Xavier MD - 11/03/24 15:10> Patient was seen and examined at the bedside. Patient was alert however not oriented to time place and person. Patient's family was present at the bedside including daughter and his son-in-law. Family was explained regarding patient's current deteriorating condition and declining mentation. Discussion regarding CODE STATUS and further management was performed. Patient's decision-maker his who was not present at bedside therefore they were explained that we would need to be in person in order to have further discussion regarding plan of care. Currently we are continuing Unasyn and D5W for hypernatremia. Insulin sliding scale was started for hyperglycemia. EEG is pending. Head CT was repeated to rule out any new neurological changes. Electrolytes were repleted. All labs and orders were reviewed. I saw and examined the patient, and I agree with current management stated by Dr Triny MD,PGY1. Plan of care was discussed with the attending physician and resident physician. Disclaimer: Despite multiple revisions, due to the dictation software being used, the document bellow may not be free of grammatical errors including phonetic/typographic errors. However, this does not deter from our commitment to providing health care in the patient's best interest in mind. Dr. Bernarda MD, PGY 2 Documentation for date of: 11/03/24 Subjective Subjective Interval history: Rk Morrell 78-y/o M PMHx T2DM, HTN, CAD, asthma, GERD, BPH, peripheral neuropathy, subdural hematoma s/p surgical evacuation presented on 10/27 for acute encephalopathy from [facility] and admitted to ICU after RSI due to inability to protect airway. Extubated on 10/29 and downgraded to floors for further management. 11/03: Seen and examined at bedside. No acute overnight events reported. Spoke to daughter at bedside regarding patient clinical status and updated on workup thus far. Given that patient continues to be off from his baseline per daughter, suspect that this may be new baseline. Plan to have second goals of care discussion with , who is decision-maker, so that we may discuss CODE STATUS and possibly hospice. EEG obtained and pending read and will discuss with neurology if LP is still desired. At this point, will obtain repeat CT head to see if there are any interval changes from CT on 10/27 and will follow- up results. Exam Vital Signs Temp Pulse Resp BP Pulse Ox O2 Del Method O2 Flow Rate 97.1 F 87 15 166/81 H 97 Room Air 3 11/03/24 08:00 11/03/24 12:00 11/03/24 08:00 11/03/24 09:21 11/03/24 08:00 11/03/24 08:00 11/03/24 00:53 FiO2 30 11/02/24 13:22 Narrative Exam General: alert, answers questions, waxes and wanes from resting peacefully to groaning, on room air HEENT: NC/AT, mucous membranes moist, bilateral sclera anicteric Cardiovascular: regular rate and rhythm, S1/S2 present, no murmurs appreciated Pulmonary: clear to auscultation bilaterally, no rales/rhonchi/wheezes Abdominal: soft, non-tender, non-distended, no rebound/guarding, normal bowel sounds present Musculoskeletal: normal ROM, no peripheral edema Skin: Rash in groin area beyond the inguinal groove. Wound on anterior L LE Neuro: follows simple commands Objective Labs 11/03/24 04:33 11/03/24 04:33 Labs: Laboratory Results - last 24 hr 11/03/24 04:33 WBC 5.6 RBC 3.39 L Hgb 9.7 L Hct 29.3 L MCV 86 MCH 28.6 MCHC 33.1 RDW Std Deviation 45.4 H Plt Count 414 Neut % (Auto) 68 Lymph % (Auto) 21 [place] % (Auto) 10 Eos % (Auto) 0 Baso % (Auto) 0 Neut # (Auto) 3.8 Lymph # (Auto) 1.2 [place] # (Auto) 0.6 Eos # (Auto) 0.0 Baso # (Auto) 0.0 Immature Gran # (Auto) 0.03 H Absolute Nucleated RBC 0.00 Immature Gran % 1 H Nucleated RBC % 0 Sodium 154 H Potassium 3.2 L Chloride 117 H Carbon Dioxide 27.2 Anion Gap 10 BUN 40 H Creatinine 1.2 Estim Creat Clear Calc 45.0 L eGFR > 60 BUN/Creatinine Ratio 33 H Glucose 279 H Calculated Osmolality 325 H Calcium 8.9 Corrected Calcium 9.4 Magnesium 2.4 Total Bilirubin 0.5 AST < 10 ALT 14 Alkaline Phosphatase 84 Total Protein 6.8 Albumin 3.4 Globulin 3.4 Albumin/Globulin Ratio 1.0 L ABG Interpretation ABG results: 10/27/24 10/28/24 20:08 04:35 ABG pH 7.39 7.43 ABG pCO2 33 31 L ABG pO2 333 H 100 D ABG HCO3 20 21 ABG O2 Saturation 101 H 99 H ABG Base Excess -4 L -3 Quality Measures Quality Measures none Advance care planning discussed with:: child Assessment & Plan Assessment Current Active Medications: Generic Name Dose Route Start Last Admin Trade Name Freq PRN Reason Stop Dose Admin Acetaminophen 650 mg 10/27/24 18:16 10/29/24 21:42 Acetaminophen 325 Mg Tablet PO 11/26/24 18:15 650 mg Q4HR PRN Administration PAIN OR FEVER > 100.4 Protocol Hydrocodone Bitart/Acetaminophen 1 tab 10/30/24 15:00 11/02/24 17:29 Hydrocodone/Apap 5/325 Tablet PO 11/04/24 14:59 1 tab Q6HR PRN Administration Pain 4-10 Al Hydrox/Mg Hydrox/Simethicone 30 ml 10/27/24 18:16 Mg Hyd/Al Hyd/Ora (Maalox Reg) Susp 30 Ml Udc PO 11/26/24 18:15 Q4HR PRN Heartburn or Upset Stomach Albuterol/Ipratropium 3 ml 11/01/24 07:00 11/03/24 06:54 Albuterol/Ipratropium (Duoneb) Rt Patti 3 Ml Nebu INH 12/01/24 06:59 3 ml Q6HRRT JUAN Administration Amlodipine Besylate 10 mg 10/31/24 14:45 11/03/24 09:21 Amlodipine Besylate 5 Mg Tablet PO 11/30/24 14:44 10 mg QDAY JUAN Administration Atorvastatin Calcium 40 mg 10/31/24 21:00 11/02/24 20:09 Atorvastatin Calcium 20 Mg Tablet PO 11/30/24 20:59 40 mg HS JUAN Administration Clotrimazole 0 gm 10/29/24 21:00 11/03/24 09:06 Clotrimazole Cr 1% 30 Gm Tube TOP 11/28/24 20:59 1 applicatio BID JUAN Administration Dextrose 25 ml 10/27/24 18:20 Dextrose 50%-Water Inj 50 Ml Syringe IV 11/26/24 18:19 Q15MIN PRN BG 50-70 responsive npo pt Dextrose 50 ml 10/27/24 18:20 Dextrose 50%-Water Inj 50 Ml Syringe IV 11/26/24 18:19 Q15MIN PRN BG <50 OR BG <70 & pt unresponsive Glucagon 1 mg 10/27/24 18:20 Glucagon Inj 1 Mg Vial IM Q15MIN PRN BG <70, and no IV access Guaifenesin 200 mg 11/01/24 02:36 Guaifenesin Syrup 200 Mg/10 Ml Udc PO 12/01/24 02:35 QID PRN Congestion Protocol Heparin Sodium (Porcine) 5,000 unit 10/27/24 21:00 11/03/24 09:03 Heparin Sod Inj 5000 Unit/Ml Vial SC 11/10/24 20:59 5,000 unit Q12HR JUAN Administration Hydralazine HCl 10 mg 10/29/24 03:24 11/01/24 10:31 Hydralazine Inj 20 Mg/Ml Vial IV 11/28/24 03:23 10 mg Q8HR PRN Administration SBP>170/90 Ampicillin Sodium/Sulbactam 50 mls @ 100 mls/hr 11/01/24 08:00 11/03/24 11:11 Sodium 1.5 gm/ Sodium Chloride IV 11/08/24 07:59 100 mls/hr Q6HR JUAN Administration Dextrose 1,000 mls @ 50 mls/hr 11/03/24 08:15 11/03/24 09:02 D5w IV 12/03/24 08:14 50 mls/hr .Q20H JUAN Administration Insulin Glargine 10 unit 11/03/24 09:00 11/03/24 09:04 Insulin Glargine (Lantus) 5 Unit/0.05 Ml (Per 5 Units) SC 12/03/24 08:59 10 unit QDAY JUAN Administration Insulin Human Lispro 0 unit 11/01/24 08:30 11/03/24 11:42 Insulin Lispro (Admelog) 1 Unit/0.01 Ml Unit SC 12/01/24 08:29 2 unit Q6HR JUAN Administration Protocol Ketorolac Tromethamine 15 mg 11/01/24 14:14 Ketorolac Inj 30 Mg/Ml Vial IVP 11/04/24 14:58 Q6H PRN Breakthrough Pain Magnesium Hydroxide 30 ml 10/27/24 18:16 10/30/24 15:28 Milk Of Magnesia Susp 30 Ml Udc PO 11/26/24 18:15 30 ml QDAY PRN Administration CONSTIPATION Melatonin 3 mg 10/30/24 21:00 11/02/24 20:20 Melatonin 3 Mg Tablet PO 11/29/24 20:59 3 mg HS PRN Administration INSOMNIA Nitroglycerin 0.4 mg 10/27/24 18:16 10/30/24 22:02 Nitroglycerin 0.4 Mg Subl Btl #25 SL 1 tab Q5MIN PRN Administration CHEST PAIN Pantoprazole Sodium 40 mg 10/28/24 09:00 11/03/24 09:21 Pantoprazole Inj 40 Mg Vial IVP 11/27/24 08:59 40 mg QDAY JUAN Administration Quetiapine Fumarate 25 mg 11/01/24 21:00 11/02/24 20:09 Quetiapine Fumarate 25 Mg Tablet PO 12/01/24 20:59 25 mg HS JUAN Administration Triamcinolone Acetonide 2 gm 10/29/24 18:00 11/03/24 11:43 Triamcinolone Acet Oint 0.5% 15 Gm Tube TOP 11/28/24 17:59 1 applicatio QID JUAN Administration Plan Rkamanda Morrell 78-y/o M PMHx T2DM, HTN, CAD, asthma, GERD, BPH, peripheral neuropathy, subdural hematoma s/p surgical evacuation presented on 10/27 for acute encephalopathy from [facility] and admitted to ICU after RSI due to inability to protect airway. Extubated on 10/29 and downgraded to floors for further management. #Acute hypoxic respiratory failure, secondary to #Aspiration ammonia CXR on 11/01 showed extensive bilateral pneumonia, worsening from prior imaging Levofloxacin discontinued (10/30-11/01) ? Unasyn 1.5 g every 6 hours (11/01-) ? Consider barium swallow once patient is more stable ? Patient to remain n.p.o. #Acute encephalopathy Initially presented with AMS. Noted to have significant purulent material from [place] in ED with significant WBCs but no bacteria and urine cultures negative. ? Neurology consulted, appreciate recommendations ? Hold off on LP ? Pending EEG ? Seroquel 25 mg at bedtime ? Follow-up repeat head CT #Type 2 diabetes mellitus A1c 9.1%. Glucose on CMP 279 on 11/03. ? 10 units glargine daily ? SSI #Coronary artery disease #Hypertension #Hyperlipidemia Has home carvedilol 6.25 mg p.o. twice daily ? Amlodipine 10 mg daily ? Atorvastatin 40 mg p.o. HS #Diaper rash ? Clotrimazole cream twice daily #Hypokalemia ? Replete as needed #BPH Has home tamsulosin 0.4 mg p.o. twice daily Hospital management: Disposition: encphalopathic, GOC discussion with tomorrow Fluids: D5W at 50 cc/hr Diet: NPO Lines: PIV DVT prophylaxis: heparin SC BID GI prophylaxis: pantoprazole CODE STATUS: full code ----- Plan discussed with attending physician Dr. Sullivan and senior resident physician Dr. Bernarda Agosto MD PGY-1 Internal Medicine
--- NOTE | 2024-11-03 13:13 | EVENTNT_ITS ---
<Statement entered by Cesar Sullivan MD - 11/08/24 04:06> I reviewed above note and agree with findings and plans. I have also personally examined the patient with medicine team and went over assessment and plan with medical team including post graduate internship and resident physician. <Statement entered by Mark Xavier MD - 11/03/24 15:05> I saw and examined the patient, and I agree with current management stated by Dr Triny MD,PGY1. Plan of care was discussed with the attending physician and resident physician. Disclaimer: Despite multiple revisions, due to the dictation software being used, the document bellow may not be free of grammatical errors including phonetic/typographic errors. However, this does not deter from our commitment to providing health care in the patient's best interest in mind. Dr. Duc MD, PGY 2 Documentation for date of: 11/03/24 Event Note Event Note: Goals of care discussion with daughter took place at bedside today with RN present. Informed/updated on current clinical status and that this may be patient's new baseline as there has been minimal improvement with work-up this far. Code status discussed, but given that daughter is not current decision maker, plans made to revisit topic tomorrow to give time for family to discuss and to have present. Daughter understands and plans made to discuss at same time tomorrow. Social workers were informed regarding goals of care discussion. Plan to schedule another meeting tomorrow at 13 00. Plan of care discussed with attending physician,Dr Sullivan and resident physician,Dr Duc Agosto MD PGY-1
[2024-11-03 15:42] LABS: Albumin, Serum 3.6 gm/dL (3.4-4.8); Anion Gap 12 (7-16); BUN/Creatinine Ratio 29 Ratio (12-20); Blood Urea Nitrogen 35 mg/dL (9-23); Calcium 8.8 mg/dL (8.3-10.6); Calcium (Corrected) 9.1 mg/dL (8.5-10.1); Carbon Dioxide 26.1 mMol/L (20.0-31.0); Chloride 116 mMol/L (98-107); Creatinine (Component) 1.2 mg/dL (0.6-1.3); Estimated Creatinine Clearance 44.7 mL/min (>60); Glucose 290 mg/dL (74-106); Osmolality,Calculated 324 (275-295); Phosphorous 2.5 mg/dL (2.4-5.1); Potassium 3.7 mMol/L (3.4-5.1); Sodium 154 mMol/L (136-145); eGFR > 60 See Note
[2024-11-03] MEDS: hydrALAZINE INJ 20 MG/ML VIAL 10 MG IV (18:37)
[2024-11-03] MEDS: KETOROLAC INJ 30 MG/ML VIAL 15 MG IVP (18:58)
--- NOTE | 2024-11-03 19:11 | PC.NURSE ---
Nurse asked patient if he is in pain and patient noded yes to nurse. Patient's family was at bedside. Patient's nurse was given his PRN Toradol for pain.
[2024-11-03] MEDS: QUEtiapine FUMARATE 25 MG TABLET PO (20:35)
--- NOTE | 2024-11-03 20:53 | PC.NURSE ---
Hospitalist was contacted due to nurse noticing that patient would cough with a little bit of water when trying to give patient small amount of water. Per MD. try to give the patient his ordered seroquel, but do not give the atorvastatin. When nurse gave the seroquel to patient patient was able to take medication with applesauce. Patient was then given a small amount of water. During that time patient did not cough. Patient is currently NPO except for medication.
[2024-11-03 21:30] LABS: Sodium 151 mMol/L (136-145)
--- NOTE | 2024-11-03 23:16 | PD.VPROG1 ---
Telemedicine visit statement This visit was conducted with the use of interactive audio and video telecommunications system that permits real time communication between the patient and the provider. Patient's verbal consent for virtual visit was obtained on 11/03/24 at 2316. Documentation for date of: 11/03/24 Subjective Subjective Interval history: Patient is in medsur, mental status is declining with worsening confusion and disorientation. Virtual exam Vital Signs Temp Pulse Resp BP Pulse Ox O2 Del Method O2 Flow Rate 97.4 F 91 24 H 119/67 99 Room Air 3 11/03/24 20:00 11/03/24 20:00 11/03/24 20:00 11/03/24 20:00 11/03/24 20:00 11/03/24 20:00 11/03/24 16:00 FiO2 30 11/03/24 16:00 Objective Labs 11/03/24 04:33 11/03/24 20:46 Labs: Laboratory Results - last 24 hr 11/03/24 11/03/24 11/03/24 04:33 15:07 20:46 WBC 5.6 RBC 3.39 L Hgb 9.7 L Hct 29.3 L MCV 86 MCH 28.6 MCHC 33.1 RDW Std Deviation 45.4 H Plt Count 414 Neut % (Auto) 68 Lymph % (Auto) 21 [place] % (Auto) 10 Eos % (Auto) 0 Baso % (Auto) 0 Neut # (Auto) 3.8 Lymph # (Auto) 1.2 [place] # (Auto) 0.6 Eos # (Auto) 0.0 Baso # (Auto) 0.0 Immature Gran # (Auto) 0.03 H Absolute Nucleated RBC 0.00 Immature Gran % 1 H Nucleated RBC % 0 Sodium 154 H 154 H 151 H Potassium 3.2 L 3.7 D Chloride 117 H 116 H Carbon Dioxide 27.2 26.1 Anion Gap 10 12 BUN 40 H 35 H Creatinine 1.2 1.2 Estim Creat Clear Calc 45.0 L 44.7 L eGFR > 60 > 60 BUN/Creatinine Ratio 33 H 29 H Glucose 279 H 290 H Calculated Osmolality 325 H 324 H Calcium 8.9 8.8 Corrected Calcium 9.4 9.1 Phosphorus 2.5 Magnesium 2.4 Total Bilirubin 0.5 AST < 10 ALT 14 Alkaline Phosphatase 84 Total Protein 6.8 Albumin 3.4 3.6 Globulin 3.4 Albumin/Globulin Ratio 1.0 L ABG Interpretation ABG results: 10/27/24 10/28/24 20:08 04:35 ABG pH 7.39 7.43 ABG pCO2 33 31 L ABG pO2 333 H 100 D ABG HCO3 20 21 ABG O2 Saturation 101 H 99 H ABG Base Excess -4 L -3 Assessment & Plan Assessment #Acute encephalopathy: worsening #?Dementia likely at baseline showing worsening. #Post-ICU delirium #Left chronic frontal subdural hygroma Assessment: Etiology for encephalopathy includes metabolic, infectious from possible PNA. Continue with the Seroquel 25 mg at bedtime, will hold off on lumbar puncture Seems to be advancing in his dementia course. Goals of care discussion will be discussed tomorrow with the and the decision wll be made.
--- NOTE | 2024-11-03 23:49 | PC.NURSE ---
Nurse rounded on patient. Patient has been resting in bed comfortably after nurse gave patient his scheduled seroquel and some water. Patient's blood sugar was obtained and was 318. Insulin lispro 4 units were given to patient. Patient was asked by both nurse and board attendant if he has any pain to which he replied no. Patient's room is close to the nurses station and an avesure is in the patients room. Nurse offered some more water to patient as patient asked nurse if he could give him some water. Patient is currently npo except for medications. When nurse gave patient water, patient did not show any sign of discomfort and did not cough. Patient had a coughing episode ealier to which doctor was notified.
[2024-11-04] VITALS (11 sets, daily range): BP systolic 151–170; BP diastolic 69–82; PULSE 78–98; RESP 16–21; TEMP 36–36.4; O2SAT 95–100
[2024-11-04] MEDS: ALBUTEROL/IPRATROPIUM (Duoneb) RT SOL 3 ML NEBU INH ×2 (00:14→18:29)
[2024-11-04 00:49] LABS: Sodium 153 mMol/L (136-145)
[2024-11-04] MEDS: AMPICILLIN/SULBAC INJ 1.5 GM in SODIUM CHLORIDE 0.9% (Popper) 50 ML IV ×4 (05:20→23:26)
[2024-11-04] MEDS: INSULIN LISPRO (AdmeLOG) 1 UNIT/0.01 ML UNIT SC ×4 (05:20→23:39)
[2024-11-04 05:34] LABS: Alanine Aminotransferase 16 U/L (10-49); Albumin, Serum 3.5 gm/dL (3.4-4.8); Alkaline Phosphatase 88 U/L (46-116); Anion Gap 11 (7-16); Aspartate Amino Transferase 17 U/L (0-34); BUN/Creatinine Ratio 24 Ratio (12-20); Bilirubin,Total 0.5 mg/dL (0.3-1.2); Blood Urea Nitrogen 29 mg/dL (9-23); Calcium 9.1 mg/dL (8.3-10.6); Calcium (Corrected) 9.5 mg/dL (8.5-10.1); Carbon Dioxide 26.3 mMol/L (20.0-31.0); Chloride 118 mMol/L (98-107); Creatinine (Component) 1.2 mg/dL (0.6-1.3); Estimated Creatinine Clearance 44.7 mL/min (>60); Globulin 3.6 gm/dL (2.3-3.5); Glucose 288 mg/dL (74-106); Magnesium 2.3 mg/dL (1.6-2.6); Osmolality,Calculated 324 (275-295); Sodium 155 mMol/L (136-145); Total Protein 7.1 gm/dL (5.7-8.2); eGFR > 60 See Note
[2024-11-04 05:56] LABS: Basophils % (Auto) 0 % (0-2.5); Eosinophils # (Auto) 0.1 Thou/mm3 (0.0-0.5); Eosinophils % (Auto) 2 % (0-10); Hematocrit 32.2 % (41.0-53.0); Hemoglobin 10.3 g/dL (13.5-16.0); Immature Granulocytes % (Auto) 1 % (0-0); Immature Granulocytes Auto 0.04 Thou/mm3 (0.00-0.00); Lymphocytes # (Auto) 1.6 Thou/mm3 (1.0-4.8); Lymphocytes % (Auto) 27 % (10-50); Mean Corpuscular Hemoglobin 28.4 pg (25.0-35.0); Mean Corpuscular Volume 89 fL (80-100); Monocytes # (Auto) 0.6 Thou/mm3 (0.0-0.8); Monocytes % (Auto) 10 % (0-12); Neutrophils # (Auto) 3.5 Thou/mm3 (1.8-7.7); Neutrophils % (Auto) 60 % (37-80); Nucleated Red Blood Cell % 0 /100 WBC (0); Platelet Count 426 Thou/mm3 (140-440); Red Blood Count 3.63 Miln/mm3 (4.50-5.90); White Blood Count 5.8 Thou/mm3 (3.8-10.6)
[2024-11-04] MEDS: TRIAMCINOLONE ACET OINT 0.5% 15 GM TUBE 2 GM TOP ×4 (06:29→20:13)
[2024-11-04 08:48] LABS: Sodium 150 mMol/L (136-145)
[2024-11-04] MEDS: INSULIN GLARGINE (Lantus) 5 UNIT/0.05 ML (PER 5 UNITS) 10 UNIT SC (08:59)
[2024-11-04] MEDS: HEPARIN SOD INJ 5000 UNIT/ML VIAL SC ×2 (08:59→20:01)
[2024-11-04] MEDS: CLOTRIMAZOLE CR 1% 30 GM TUBE TOP ×2 (09:00→20:13)
[2024-11-04] MEDS: PANTOPRAZOLE INJ 40 MG VIAL IVP (09:03)
--- NOTE | 2024-11-04 10:02 | CHAP ---
Patient was visited by the Spiritual Care Volunteer who prayed for them. (Volunteer was in the hospital from 09:11-10:02).
--- NOTE | 2024-11-04 10:03 | ESPR_ITS ---
<Statement entered by Cesar Sullivan MD - 11/08/24 04:07> I reviewed above note and agree with findings and plans. I have also personally examined the patient with medicine team and went over assessment and plan with medical team including editing intern and resident physician. Documentation for date of: 11/04/24 Subjective Subjective Interval history: Patient seen and examined at bedside this morning. Vitals, labs reviewed?significant for sodium 155 and glucose 288. No acute overnight events. At bedside, patient appears confused and is mumbling. He was requesting water however remains n.p.o. due to risk of aspiration. EEG is pending. Goals of care discussion to be had with family later this afternoon. Will continue Unasyn for aspiration pneumonia, and D5W for hypernatremia. Will continue to trend sodium at this time. Exam Vital Signs Temp Pulse Resp BP Pulse Ox O2 Del Method O2 Flow Rate 97.1 F 80 17 167/82 H 97 Room Air 3 11/04/24 08:00 11/04/24 08:00 11/04/24 08:00 11/04/24 08:00 11/04/24 08:00 11/04/24 08:00 11/03/24 16:00 FiO2 30 11/03/24 16:00 Narrative Exam Gen: Awake and alert however not oriented or following commands HEENT: MM dry, no LAD noted CVS: normal S1, S2. RRR. No MRG Resp: CTA B/L. No rhonchi, rales, crackles or wheezing Abd: soft, non-tender, non-distended. BS+ in all 4 quadrants MSK: Good ROM in all 4 extremities, no edema noted Neuro: Unable to fully assess as patient not following commands Objective Labs 11/04/24 04:20 11/04/24 12:59 Labs: Laboratory Results - last 24 hr 11/03/24 11/03/24 11/04/24 15:07 20:46 00:27 WBC RBC Hgb Hct MCV MCH MCHC RDW Std Deviation Plt Count Neut % (Auto) Lymph % (Auto) [place] % (Auto) Eos % (Auto) Baso % (Auto) Neut # (Auto) Lymph # (Auto) [place] # (Auto) Eos # (Auto) Baso # (Auto) Immature Gran # (Auto) Absolute Nucleated RBC Immature Gran % Nucleated RBC % Sodium 154 H 151 H 153 H Potassium 3.7 D Chloride 116 H Carbon Dioxide 26.1 Anion Gap 12 BUN 35 H Creatinine 1.2 Estim Creat Clear Calc 44.7 L eGFR > 60 BUN/Creatinine Ratio 29 H Glucose 290 H Calculated Osmolality 324 H Calcium 8.8 Corrected Calcium 9.1 Phosphorus 2.5 Magnesium Total Bilirubin AST ALT Alkaline Phosphatase Total Protein Albumin 3.6 Globulin Albumin/Globulin Ratio 11/04/24 11/04/24 04:20 07:52 WBC 5.8 RBC 3.63 L Hgb 10.3 L Hct 32.2 L MCV 89 MCH 28.4 MCHC 32.0 RDW Std Deviation 46.0 H Plt Count 426 Neut % (Auto) 60 Lymph % (Auto) 27 [place] % (Auto) 10 Eos % (Auto) 2 Baso % (Auto) 0 Neut # (Auto) 3.5 Lymph # (Auto) 1.6 [place] # (Auto) 0.6 Eos # (Auto) 0.1 Baso # (Auto) 0.0 Immature Gran # (Auto) 0.04 H Absolute Nucleated RBC 0.00 Immature Gran % 1 H Nucleated RBC % 0 Sodium 155 H 150 H Potassium 4.0 Chloride 118 H Carbon Dioxide 26.3 Anion Gap 11 BUN 29 H Creatinine 1.2 Estim Creat Clear Calc 44.7 L eGFR > 60 BUN/Creatinine Ratio 24 H Glucose 288 H Calculated Osmolality 324 H Calcium 9.1 Corrected Calcium 9.5 Phosphorus Magnesium 2.3 Total Bilirubin 0.5 AST 17 ALT 16 Alkaline Phosphatase 88 Total Protein 7.1 Albumin 3.5 Globulin 3.6 H Albumin/Globulin Ratio 1.0 L ABG Interpretation ABG results: 10/27/24 10/28/24 20:08 04:35 ABG pH 7.39 7.43 ABG pCO2 33 31 L ABG pO2 333 H 100 D ABG HCO3 20 21 ABG O2 Saturation 101 H 99 H ABG Base Excess -4 L -3 Quality Measures Quality Measures VTE prophylaxis Advance care planning discussed with:: spouse and child Assessment & Plan Assessment Current Active Medications: Generic Name Dose Route Start Last Admin Trade Name Freq PRN Reason Stop Dose Admin Acetaminophen 650 mg 10/27/24 18:16 10/29/24 21:42 Acetaminophen 325 Mg Tablet PO 11/26/24 18:15 650 mg Q4HR PRN Administration PAIN OR FEVER > 100.4 Protocol Hydrocodone Bitart/Acetaminophen 1 tab 10/30/24 15:00 11/02/24 17:29 Hydrocodone/Apap 5/325 Tablet PO 11/04/24 14:59 1 tab Q6HR PRN Administration Pain 4-10 Al Hydrox/Mg Hydrox/Simethicone 30 ml 10/27/24 18:16 Mg Hyd/Al Hyd/Ora (Maalox Reg) Susp 30 Ml Udc PO 11/26/24 18:15 Q4HR PRN Heartburn or Upset Stomach Albuterol/Ipratropium 3 ml 11/01/24 07:00 11/04/24 06:13 Albuterol/Ipratropium (Duoneb) Rt Patti 3 Ml Nebu INH 12/01/24 06:59 Not Given Q6HRRT JUAN Amlodipine Besylate 10 mg 10/31/24 14:45 11/04/24 08:50 Amlodipine Besylate 5 Mg Tablet PO 11/30/24 14:44 Not Given QDAY JUAN Atorvastatin Calcium 40 mg 10/31/24 21:00 11/03/24 20:52 Atorvastatin Calcium 20 Mg Tablet PO 11/30/24 20:59 Not Given HS JUAN Clotrimazole 0 gm 10/29/24 21:00 11/04/24 09:00 Clotrimazole Cr 1% 30 Gm Tube TOP 11/28/24 20:59 1 applicatio BID JUAN Administration Dextrose 25 ml 10/27/24 18:20 Dextrose 50%-Water Inj 50 Ml Syringe IV 11/26/24 18:19 Q15MIN PRN BG 50-70 responsive npo pt Dextrose 50 ml 10/27/24 18:20 Dextrose 50%-Water Inj 50 Ml Syringe IV 11/26/24 18:19 Q15MIN PRN BG <50 OR BG <70 & pt unresponsive Glucagon 1 mg 10/27/24 18:20 Glucagon Inj 1 Mg Vial IM Q15MIN PRN BG <70, and no IV access Guaifenesin 200 mg 11/01/24 02:36 Guaifenesin Syrup 200 Mg/10 Ml Udc PO 12/01/24 02:35 QID PRN Congestion Protocol Heparin Sodium (Porcine) 5,000 unit 10/27/24 21:00 11/04/24 08:59 Heparin Sod Inj 5000 Unit/Ml Vial SC 11/10/24 20:59 5,000 unit Q12HR JUAN Administration Hydralazine HCl 10 mg 10/29/24 03:24 11/03/24 18:37 Hydralazine Inj 20 Mg/Ml Vial IV 11/28/24 03:23 10 mg Q8HR PRN Administration SBP>170/90 Ampicillin Sodium/Sulbactam 50 mls @ 100 mls/hr 11/01/24 08:00 11/04/24 05:20 Sodium 1.5 gm/ Sodium Chloride IV 11/08/24 07:59 100 mls/hr Q6HR JUAN Administration Dextrose 1,000 mls @ 75 mls/hr 11/03/24 15:58 11/03/24 17:08 D5w IV 12/03/24 15:57 Not Given .[id number] JUAN Insulin Glargine 10 unit 11/03/24 09:00 11/04/24 08:59 Insulin Glargine (Lantus) 5 Unit/0.05 Ml (Per 5 Units) SC 12/03/24 08:59 10 unit QDAY JUAN Administration Insulin Human Lispro 0 unit 11/01/24 08:30 11/04/24 05:20 Insulin Lispro (Admelog) 1 Unit/0.01 Ml Unit SC 12/01/24 08:29 3 unit Q6HR JUAN Administration Protocol Ketorolac Tromethamine 15 mg 11/01/24 14:14 11/03/24 18:58 Ketorolac Inj 30 Mg/Ml Vial IVP 11/04/24 14:58 15 mg Q6H PRN Administration Breakthrough Pain Lorazepam 1 mg 11/03/24 14:39 Lorazepam 2 Mg/Ml Vial IVP X1 PRN AGITATION Magnesium Hydroxide 30 ml 10/27/24 18:16 10/30/24 15:28 Milk Of Magnesia Susp 30 Ml Udc PO 11/26/24 18:15 30 ml QDAY PRN Administration CONSTIPATION Melatonin 3 mg 10/30/24 21:00 11/02/24 20:20 Melatonin 3 Mg Tablet PO 11/29/24 20:59 3 mg HS PRN Administration INSOMNIA Nitroglycerin 0.4 mg 10/27/24 18:16 10/30/24 22:02 Nitroglycerin 0.4 Mg Subl Btl #25 SL 1 tab Q5MIN PRN Administration CHEST PAIN Pantoprazole Sodium 40 mg 10/28/24 09:00 11/04/24 09:03 Pantoprazole Inj 40 Mg Vial IVP 11/27/24 08:59 40 mg QDAY JUAN Administration Quetiapine Fumarate 25 mg 11/01/24 21:00 11/03/24 20:35 Quetiapine Fumarate 25 Mg Tablet PO 12/01/24 20:59 25 mg HS JUAN Administration Triamcinolone Acetonide 2 gm 10/29/24 18:00 11/04/24 06:29 Triamcinolone Acet Oint 0.5% 15 Gm Tube TOP 11/28/24 17:59 1 applicatio QID JUAN Administration Plan Patient is a 78-year-old male with T2DM, HTN, CAD, asthma, GERD, BPH, peripheral neuropathy, history of subdural hematoma s/p surgical evacuation who initially presented with acute encephalopathy, likely secondary to hypoglycemia versus UTI. He underwent emergent intubation for airway protection, and was extubated on 10/29 for further management. Patient had an aspiration event, was started on antibiotics and has been n.p.o. since then, with IV fluids for nutrition/hypernatremia. Goals of care discussion was had with family on 11/04/2024 (see separate event note), and family expressed wishes to make patient DNR/DNI. POLST was signed. Anticipate discharge back to SNF in 24 hours. #Goals of care discussion GOC was had (see separate event note) => POLST signed, and patient made DNR/DNI with plan to discharge to SNF on 11/05/2024. Family would like patient to be made comfort care in the event his condition deteriorates. #Acute hypoxic respiratory failure, secondary to #Aspiration pneumonia CXR on 11/01 showed extensive bilateral pneumonia, worsening from prior imaging Levofloxacin discontinued (10/30-11/01) ? Unasyn 1.5 g every 6 hours (11/01-) => will discharge to SNF on p.o. Augmentin #Acute encephalopathy Initially presented with AMS. Noted to have significant purulent material from [place] in ED with significant WBCs but no bacteria and urine cultures negative. ? Neurology consulted, appreciate recommendations: Follow-up EEG, Seroquel 25 mg at bedtime ? Hold off on LP, as patient's family would like patient to be DNR/DNI with no further aggressive measures ? Follow-up repeat head CT: Study limited by motion artifact; stable chronic changes (frontal hygroma, right frontal paul hole); negative for acute hemorrhage, mass effect or midline shift #Hypernatremia Sodium 155 this morning => repeat 150 Remains on D5W at this time, with free water deficit approximate 1.7 L Will continue to monitor sodium every 4 hours #Type 2 diabetes mellitus A1c 9.1%. Glucose on CMP 288 ? 10 units glargine daily ? SSI #Coronary artery disease #Hypertension #Hyperlipidemia Has home carvedilol 6.25 mg p.o. twice daily ? Amlodipine 10 mg daily ? Atorvastatin 40 mg p.o. HS #Diaper rash ? Clotrimazole cream twice daily #Hypokalemia, resolved ? Replete as needed #BPH Has home tamsulosin 0.4 mg p.o. twice daily Hospital management: Disposition: Encephalopathy/aspiration pneumonia; anticipate discharge in 24 hours to SNF Fluids: D5W at 75 cc/hr Diet: Dysphagia 1 pur?ed Lines: PIV DVT prophylaxis: heparin SC BID GI prophylaxis: pantoprazole CODE STATUS: DNR/DNI Patient seen and care discussed with my attending Dr. Sullivan. Karla Mims MD PGY-3
[2024-11-04 13:37] LABS: Sodium 147 mMol/L (136-145)
[2024-11-04] MEDS: DEXTROSE 5%-WATER 1,000 ML 75 ML IV (14:38)
--- NOTE | 2024-11-04 15:29 | PC.SS ---
GOC meeting held to discuss patient's plan of care. Patient's medical surrogate decision maker is his spouse Jaleesa Morrell [phone]. Patient's code status updated to DNR/DNI as of 11/04/24. Jaleesa and her children have agreed for patient to discharge to [facility] with hospice. SS explained hospice services to family and their responsibility for providing patient?s care at 100% if patient discharges home with hospice. SS and selected hospice agency would coordinate appropriate DME to be delivered to the home if home with hospice is selected. ?SS also explained patient may return to [facility]; hospice vs comfort care explained to patient?s spouse Jaleesa Morrell. SS informed spouse and family clarification with [facility] will be made. Patient?s spouse Jaleesa stated she and family prefers patient to discharge to SNF with hospice, if possible. Patient?s spouse Jaleesa explained everyone works and would be unable to provide 24hr. care for patient. SS to contact [facility] and inform SNF of family?s hospice request. SS explained hospice services to family and their responsibility for providing patient?s care at 100% if patient discharges home with hospice. SS and selected hospice agency would coordinate appropriate DME to be delivered to the home if home with hospice is selected. ?SS also explained patient may return to [facility]; hospice vs comfort care explained to patient?s spouse Jaleesa Morrell. SS informed spouse and family clarification with [facility] will be made. Patient?s spouse Jaleesa stated she and family prefers patient to discharge to SNF with hospice, if possible. Patient?s spouse Jaleesa explained everyone works and would be unable to provide 24hr. care for patient. SS to contact [facility] and inform SNF of family?s hospice request.
--- NOTE | 2024-11-04 15:33 | EVENTNT_ITS ---
<Statement entered by Cesar Sullivan MD - 11/08/24 04:07> I reviewed above note and agree with findings and plans. I have also personally examined the patient with medicine team and went over assessment and plan with medical team including director international and resident physician. Documentation for date of: 11/04/24 Event Note Event Note: Goals of care discussion was had with patient's , children, brother and extended family in the presence of myself, PGY 1 Dr. Becerra, and [employer]. We discussed patient's current clinical status, including encephalopathy that appears to be patient's baseline, recent UTI, recent aspiration event and what further workup would entail (possible LP, possible PEG tube placement). Additionally, patient has other comorbidities such as T2DM, HTN, CAD that are also contributing to patient's deterioration. At this time, patient's and family would like to make patient DNR/DNI, and would like patient to return to SNF. POLST form was signed with family requesting comfort care be initiated, in the event that patient's clinical status deteriorates. They would not like any aggressive measures, including CPR, intubation, trial of tube feeding. Family had opportunity ask questions which were answered to their satisfaction. At this time, patient will resume diet and CODE STATUS was changed to DNR/DNI. Patient care discussed with my attending Dr. Sullivan. Karla Mims MD PGY-3
--- NOTE | 2024-11-04 16:27 | PC.SS ---
Rounding: Pending consult
--- NOTE | 2024-11-04 16:30 | PC.SS ---
SS updated [facility], [facility] that pt is now DNR/DNI, and they would like to DC pt on comfort. Per [facility] pt is ok to return to facility on comfort when ready.
[2024-11-04 16:31] LABS: Sodium 151 mMol/L (136-145)
[2024-11-04] MEDS: ATORVASTATIN CALCIUM 20 MG TABLET 40 MG PO (20:02)
[2024-11-04] MEDS: QUEtiapine FUMARATE 25 MG TABLET PO (20:02)
--- NOTE | 2024-11-04 20:45 | EKG_ITS ---
[facility] Test Date: 2024-11-04 Pat Name: JOEY Ernandezpartment: [facility] Gender[facility] Group Controller: MAGEN : [id number] Requested By: Martita Wadsworth Order Number: [id number] Reading MD: Martita Wadsworth Measurements Intervals [place] Rate: 87 P: [place]: QRS: 88 QRSD: 90 T: 187 QT: 387 QTc: 467 Interpretive Statements ATRIAL FIBRILLATION WITH ABERRANT CONDUCTION OR VENTRICULAR PREMATURE COMPLEXES ST DEVIATION AND MODERATE T-WAVE ABNORMALITY, CONSIDER ANTEROLATERAL ISCHEMIA ST DEVIATION AND MODERATE T-WAVE ABNORMALITY, CONSIDER INFERIOR ISCHEMIA Compared to ECG 10/30/2024 22:45:20 Ventricular premature complex(es) now present Aberrant conduction of supraventricular beat(s) now present Possible ischemia now present Sinus rhythm no longer present T-wave abnormality still present /store/S0/[id number].pdf
[2024-11-04 21:43] LABS: Sodium 147 mMol/L (136-145)
[2024-11-05] VITALS (11 sets, daily range): BP systolic 125–170; BP diastolic 74–94; PULSE 70–107; RESP 16–22; TEMP 35.7–36.5; O2SAT 95–100
[2024-11-05] MEDS: ALBUTEROL/IPRATROPIUM (Duoneb) RT SOL 3 ML NEBU INH ×2 (00:08→06:54)
--- NOTE | 2024-11-05 01:06 | PD.VPROG1 ---
Telemedicine visit statement This visit was conducted with the use of phone was obtained on 11/04/24. Documentation for date of: 11/05/24 Subjective Subjective Interval history: Patient is in medsurg, mental status is declining, in bed mumbling. Virtual exam Vital Signs Temp Pulse Resp BP Pulse Ox O2 Del Method O2 Flow Rate 97.0 F 83 20 125/76 99 Room Air 3 11/05/24 00:00 11/05/24 00:08 11/05/24 00:08 11/05/24 00:00 11/05/24 00:08 11/05/24 00:00 11/03/24 16:00 FiO2 30 11/03/24 16:00 Objective Labs 11/04/24 04:20 11/04/24 21:12 Labs: Laboratory Results - last 24 hr 11/04/24 11/04/24 11/04/24 04:20 07:52 12:59 WBC 5.8 RBC 3.63 L Hgb 10.3 L Hct 32.2 L MCV 89 MCH 28.4 MCHC 32.0 RDW Std Deviation 46.0 H Plt Count 426 Neut % (Auto) 60 Lymph % (Auto) 27 [place] % (Auto) 10 Eos % (Auto) 2 Baso % (Auto) 0 Neut # (Auto) 3.5 Lymph # (Auto) 1.6 [place] # (Auto) 0.6 Eos # (Auto) 0.1 Baso # (Auto) 0.0 Immature Gran # (Auto) 0.04 H Absolute Nucleated RBC 0.00 Immature Gran % 1 H Nucleated RBC % 0 Sodium 155 H 150 H 147 H Potassium 4.0 Chloride 118 H Carbon Dioxide 26.3 Anion Gap 11 BUN 29 H Creatinine 1.2 Estim Creat Clear Calc 44.7 L eGFR > 60 BUN/Creatinine Ratio 24 H Glucose 288 H Calculated Osmolality 324 H Calcium 9.1 Corrected Calcium 9.5 Magnesium 2.3 Total Bilirubin 0.5 AST 17 ALT 16 Alkaline Phosphatase 88 Total Protein 7.1 Albumin 3.5 Globulin 3.6 H Albumin/Globulin Ratio 1.0 L 11/04/24 11/04/24 16:14 21:12 WBC RBC Hgb Hct MCV MCH MCHC RDW Std Deviation Plt Count Neut % (Auto) Lymph % (Auto) [place] % (Auto) Eos % (Auto) Baso % (Auto) Neut # (Auto) Lymph # (Auto) [place] # (Auto) Eos # (Auto) Baso # (Auto) Immature Gran # (Auto) Absolute Nucleated RBC Immature Gran % Nucleated RBC % Sodium 151 H 147 H Potassium Chloride Carbon Dioxide Anion Gap BUN Creatinine Estim Creat Clear Calc eGFR BUN/Creatinine Ratio Glucose Calculated Osmolality Calcium Corrected Calcium Magnesium Total Bilirubin AST ALT Alkaline Phosphatase Total Protein Albumin Globulin Albumin/Globulin Ratio ABG Interpretation ABG results: 10/27/24 10/28/24 20:08 04:35 ABG pH 7.39 7.43 ABG pCO2 33 31 L ABG pO2 333 H 100 D ABG HCO3 20 21 ABG O2 Saturation 101 H 99 H ABG Base Excess -4 L -3 Assessment & Plan Assessment #Acute encephalopathy: worsening #?Dementia likely at baseline showing worsening. #Post-ICU delirium #Left chronic frontal subdural hygroma Assessment: Etiology for encephalopathy includes metabolic, infectious from possible PNA. Continue with antibiotics, Seroquel 25 mg at bedtime, Condition seems to be advancing with dementia. Goals of care discussion with family by the primary team and decision was made to change the code status to DNR and return to SNF.
--- NOTE | 2024-11-05 03:27 | PC.NURSE ---
Dr. Downey notified of patient having recent four beats of four PVCs per environmental monitoring technician. No new orders at this time.
[2024-11-05 05:02] LABS: Basophils % (Auto) 0 % (0-2.5); Eosinophils # (Auto) 0.3 Thou/mm3 (0.0-0.5); Eosinophils % (Auto) 4 % (0-10); Hematocrit 30.1 % (41.0-53.0); Hemoglobin 9.8 g/dL (13.5-16.0); Immature Granulocytes % (Auto) 0 % (0-0); Immature Granulocytes Auto 0.02 Thou/mm3 (0.00-0.00); Lymphocytes # (Auto) 1.8 Thou/mm3 (1.0-4.8); Lymphocytes % (Auto) 30 % (10-50); Mean Corpuscular HGB Conc 32.6 g/dl (31.0-37.0); Mean Corpuscular Hemoglobin 28.2 pg (25.0-35.0); Mean Corpuscular Volume 87 fL (80-100); Monocytes # (Auto) 0.5 Thou/mm3 (0.0-0.8); Monocytes % (Auto) 8 % (0-12); Neutrophils # (Auto) 3.5 Thou/mm3 (1.8-7.7); Neutrophils % (Auto) 57 % (37-80); Nucleated Red Blood Cell % 0 /100 WBC (0); Platelet Count 333 Thou/mm3 (140-440); RDW Standard Deviation 43.3 fL (35.1-43.9); Red Blood Count 3.47 Miln/mm3 (4.50-5.90); White Blood Count 6.1 Thou/mm3 (3.8-10.6)
[2024-11-05] MEDS: AMPICILLIN/SULBAC INJ 1.5 GM in SODIUM CHLORIDE 0.9% (Popper) 50 ML IV ×2 (05:15→12:23)
[2024-11-05] MEDS: TRIAMCINOLONE ACET OINT 0.5% 15 GM TUBE 2 GM TOP ×2 (05:20→12:34)
[2024-11-05] MEDS: DEXTROSE 5%-WATER 1,000 ML 75 ML IV (05:23)
[2024-11-05 05:24] LABS: Alanine Aminotransferase 20 U/L (10-49); Albumin/Globulin Ratio 0.9 (1.2-2.2); Alkaline Phosphatase 77 U/L (46-116); Anion Gap 9 (7-16); Aspartate Amino Transferase < 10 U/L (0-34); BUN/Creatinine Ratio 21 Ratio (12-20); Bilirubin,Total 0.6 mg/dL (0.3-1.2); Blood Urea Nitrogen 21 mg/dL (9-23); Calcium 8.1 mg/dL (8.3-10.6); Calcium (Corrected) 8.9 mg/dL (8.5-10.1); Carbon Dioxide 25.5 mMol/L (20.0-31.0); Chloride 111 mMol/L (98-107); Estimated Creatinine Clearance 53.6 mL/min (>60); Globulin 3.3 gm/dL (2.3-3.5); Glucose 255 mg/dL (74-106); Magnesium 1.9 mg/dL (1.6-2.6); Osmolality,Calculated 300 (275-295); Potassium 3.2 mMol/L (3.4-5.1); Sodium 145 mMol/L (136-145); Total Protein 6.3 gm/dL (5.7-8.2); eGFR > 60 See Note
[2024-11-05] MEDS: INSULIN LISPRO (AdmeLOG) 1 UNIT/0.01 ML UNIT SC ×2 (05:38→12:25)
[2024-11-05] MEDS: amLODIPine BESYLATE 5 MG TABLET 10 MG PO (08:03)
[2024-11-05] MEDS: HEPARIN SOD INJ 5000 UNIT/ML VIAL SC (08:04)
[2024-11-05] MEDS: PANTOPRAZOLE 40 MG TABLET PO (08:04)
[2024-11-05] MEDS: INSULIN GLARGINE (Lantus) 5 UNIT/0.05 ML (PER 5 UNITS) 10 UNIT SC (08:12)
[2024-11-05] MEDS: CLOTRIMAZOLE CR 1% 30 GM TUBE TOP (08:18)
[2024-11-05] MEDS: POTASSIUM CHL 10 mEq IVPB 10 MEQ/100 ML BAG 100 MEQ IV ×3 (08:29→10:38)
[2024-11-05] MEDS: DEXTROSE 5%-WATER 1,000 ML 50 ML IV (08:38)
[2024-11-05] MEDS: INSULIN GLARGINE (Lantus) 5 UNIT/0.05 ML (PER 5 UNITS) SC (09:07)
--- NOTE | 2024-11-05 10:05 | PC.SS ---
Addendum entered by Deann Garrido 11/05/24 13:43: SS follow up note; Patient's ETA was moved to 1600. SS made family, In[facility] from [facility] and Nurse aware. Addendum entered by Deann Garrido 11/05/24 11:06: SS follow up note; SS set up transportation for patient through [facility] for 1400. SS notified patient's nurse Rosana as well as Ingr[facility] from [facility]. SS contacted patient's, left with ETA as well as patient's daughter, Jodi. Original Note: SS follow up note; set up transportation for patient through [facility], Reference #[id number].
--- NOTE | 2024-11-05 10:26 | PC.NURSE ---
notified abou the ICU called and updated about pt. run 7 PVc and the current v/s HR 79, O2 100% on RA. Pt. is getting changed and looks asymptomatic. Will continue monitoring.
--- NOTE | 2024-11-05 10:57 | ESDS_ITS ---
<Statement entered by Cesar Sullivan MD - 11/10/24 21:50> I reviewed above note and agree with findings and plans. I have also personally examined the patient with medicine team and went over assessment and plan with medical team including multicultural internship and resident physician. <Statement entered by Mark Xavier MD - 11/05/24 11:07> I saw and examined the patient, and I agree with current management stated by Dr Triny MD,PGY1. Plan of care was discussed with the attending physician and resident physician. Disclaimer: Despite multiple revisions, due to the dictation software being used, the document bellow may not be free of grammatical errors including phonetic/typographic errors. However, this does not deter from our commitment to providing health care in the patient's best interest in mind. Dr. Duc MD, PGY 2 Planned Discharge Date 11/05/24 DS: Providers Provider Date of admission: 10/27/24 18:16 Primary care physician: Physician No Primary/Family Admitting Provider: Frank Lowe MD Attending Provider on Admission: Cesar Sullivan MD Consults: 10/28/24 05:51 Referral Wound Care Urgent Comment: 10/29/24 07:19 Referral Speech Therapy Routine Comment: Formal swallow evaluation 10/29/24 16:39 Referral Speech Therapy Routine Comment: 10/31/24 10:21 Consult to Neurology / Tele-Neurology Routine Comment: Consulting Provider: Judson Roa Attending Provider on DC: Cesar Sullivan MD Discharging Provider: Cesar Sullivan MD DS: Diagnosis Problem List Completed Was Problem List Reviewed/Reconciled?: Yes Hospital Course Hospital Course Hospital course: Rk Morrell is a 78-year-old male with a past medical history of type 2 diabetes mellitus, hypertension, CAD, asthma, GERD, BPH, peripheral neuropathy, subdural hematoma status post surgical evacuation who presented to ED on 10/27 acute encephalopathy [facility]. Not responding to questions at bedside and underwent RSI and therefore history obtained from chart review. Per EMS, blood glucose in the 40s at facility and was given D10 which increased blood glucose to 238. Also noted to have pinpoint pupils and EMS gave total of 4 mg Narcan prior to arrival with some response but patient then became altered again. In ED, vitals showed hypothermia with temperature of 94.5 ?F, bradypnea, bradycardia, and hypotension as well as pinpoint pupils. Given additional doses of narcan without significant lasting response. Labs and imaging, including head CT unrevealing of acute underlying pathology. However, CT head did note increased size in subdural hygroma from 12/2023. Otherwise, BUN not significantly elevated, ammonia within normal limits, and u tox negative. Noted to have significant purulent-appearing material drain from urinary catheter which may be etiology of presentation. Given guarded state, decision was made to stabilize patient overnight in ICU via intubation and pre ssure support as needed. In ICU, no acute overnight events. Became agitated when weaning down on precedex, however, he appeared more alert and followed commands. Thus, sedation was turned off and patient successfully extubated. Otherwise, will monitor patient for one more night in ICU. Noted to be anxious and in discomfort, scratching his groin area which was already noted to have scaly and erythematous rash. Placed zinc ointment over area and hydrocordisone PRN if no improvement. Following day, 10/29, downgraded to floors for further management. While on floors, RR on 11/01 for desaturation into 80s likely secondary to aspiration event and was placed on HFNC saturating in 90s and started on Unasyn. Patient eventually able to be weaned down to room air and mentation noted to slightly improve throughout hospital stay. On 11/03, goals of care discussion with daughter took place at bedside with RN present. Informed/updated on current clinical status and that this may be patient's new baseline as there has been minimal improvement with work-up this far. Code status discussed, but given that daughter is not current decision maker, plans made to revisit topic tomorrow to give time for family to discuss and to have present. Daughter understands and plans made to discuss at same time tomorrow. Social workers were informed regarding goals of care discussion. During second gols of care discussion, , children, brother and extended family were present. Discussed patient's current clinical status, including encephalopathy that appears to be patient's baseline, recent UTI, recent aspiration event and what further workup would entail (possible LP, possible PEG tube placement). Additionally, patient has other comorbidities such as T2DM, HTN, CAD that are also contributing to patient's deterioration. At this time, patient's and family would like to make patient DNR/DNI, and would like patient to return to SNF. POLST form was signed with family requesting comfort care be initiated in the event that patient's clinical status deteriorates. They would not like any aggressive measures, including CPR, intubation, trial of tube feeding. Family had opportunity to ask questions which were answered to their satisfaction. Patient will resume diet and code status was changed to DNR/DNI. Barium swallow deferred given that patient also denied artificial nutrition. Following day, patient discharged with augmentin for 5 more days for aspiration event, Seroquel for anxiety at night time, and with Madrid in place given significant purulent material seen during admission. Diagnoses during admission: #Acute hypoxic respiratory failure, secondary to #Aspiration pneumonia #Acute encephalopathy #Hypernatremia #Type 2 diabetes mellitus #Coronary artery disease #Hypertension #Hyperlipidemia #Diaper rash #Hypokalemia, resolved #BPH Discharge instructions: - Start albuterol-budesonide as needed - Take amoxicillin-clavulanate 1 tablet twice daily for 5 more days - Start taking quetiapine 25 mg nightly - Continue tiramcinolone cream for rash - Pantoprazole increased from 20 to 40 mg daily - Stop taking losartan, doxazosin, and cephalexin - Discharge back to facility with Madrid given that significant purulent material observed after initial Amdrid placement in ED Time Spent with Patient Time attestation: Total time spent providing and/or coordinating discharge services: Exam Vital Signs Temp Pulse Resp BP Pulse Ox O2 Del Method O2 Flow Rate 96.3 F L 89 18 149/74 H 100 Room Air 3 11/05/24 08:00 11/05/24 08:03 11/05/24 08:00 11/05/24 08:03 11/05/24 08:00 11/05/24 08:00 11/03/24 16:00 FiO2 30 11/03/24 16:00 Narrative Exam General: alert and orientated to self, no acute distress, able to speak full sentences HEENT: poor dentition, NC/AT, mucous membranes moist, bilateral sclera anicteric Cardiovascular: regular rate and rhythm, S1/S2 present, no murmurs appreciated Pulmonary: clear to auscultation bilaterally, no rales/rhonchi/wheezes Abdominal: soft, non-tender, non-distended, no rebound/guarding, normal bowel sounds present Musculoskeletal: normal ROM, no peripheral edema Skin: warm and dry, intact, no rashes Discharge Plan Plan Patient Disposition: Xfer Skilled Nsg Fac (SNF) Care Plan Goals: - Start albuterol-budesonide as needed - Take amoxicillin-clavulanate 1 tablet twice daily for 5 more days - Start taking quetiapine 25 mg nightly - Continue tiramcinolone cream for rash - Pantoprazole increased from 20 to 40 mg daily - Stop taking losartan, doxazosin, and cephalexin - Discharge back to facility with Madrid given that significant purulent material observed after initial [place] placement in ED Prescriptions/Referrals Prescriptions/Med Rec: New triamcinolone acetonide 0.5 % Ointment 1 applic top QID Qty: 15 0RF quetiapine 25 mg Tablet 25 mg PO HS Qty: 90 0RF albuterol-budesonide 90-80 mcg/actuation HFA aerosol inhaler 2 inh inhalation QDAY PRN (Reason: shortness of breath) Qty: 5.9 0RF glucagon HCl [Glucagon (HCl) Emergency Kit] 1 mg recon soln 1 mg subcut Q20M PRN (Reason: hypoglycemia) Qty: 1 0RF Rx Instructions: until target blood sugar attained amoxicillin-pot clavulanate 875-125 mg tablet 1 tab PO Q12H 5 Days Qty: 10 0RF insulin glargine [Lantus Solostar U-100 Insulin] 100 unit/mL (3 mL) insulin pen 15 unit subcut QAM Qty: 15 0RF Baqsimi 3 mg/actuation spray,non-aerosol 3 mg intranasal QDAY PRN (Reason: hypoglycemia) Qty: 2 0RF Continued Boost Glucose Control 0.07-0.8 gram-kcal/mL liquid 1 ea PO BID Rx Instructions: boost glucose control oral liquid Give 4 ounce BID give after meals calcium carbonate 500 mg calcium (1,250 mg) tablet 500 mg PO Q6H PRN (Reason: indigestion) carvedilol 6.25 mg tablet 6.25 mg PO BID Rx Instructions: must administer with a meal/food. Hold if SBP<110 or DBP<60, or HR<60 bisacodyl [Dulcolax (bisacodyl)] 10 mg suppository 10 mg MO Q72H PRN (Reason: constipation) Rx Instructions: if mom ineffective Enema 19-7 gram/118 mL enema 118 ml MO Q72H PRN (Reason: constipation) Rx Instructions: if mom/dulcolax suppository ineffective. folic acid 1 mg tablet 1 mg PO QDAY Rx Instructions: for supplement hydroxyzine HCl 25 mg tablet 25 mg PO Q8H PRN (Reason: itching) lactulose 20 gram/30 mL solution 20 g PO [id number] PRN (Reason: constipation) magnesium hydroxide 400 mg/5 mL suspension 30 ml PO Q72H PRN (Reason: constipation) Rx Instructions: if no bm for 3 consecutive days Nix Ultra shampoo all in one external kit topical Rx Instructions: (Nit remover) Apply to entire body topically one time a day every Tue, Tue, Sun for possible contact dermatitis/eczema for 3 weeks. Start 10/23/24, End date 11/13/24. hydrocodone-acetaminophen 5-325 mg tablet 1 tab PO Q8H PRN (Reason: pain) Rx Instructions: prn moderate to severe pain pantoprazole [Protonix] 40 mg tablet,delayed release (DR/EC) 40 mg PO QAM Rx Instructions: for GERD Salonpas(m.salicylate-menthol) 10-3 % adhesive patch,medicated 1 patch topical Q8H PRN (Reason: pain) Rx Instructions: Apply to lower back. May leave on area for up to 8 hrs sennosides-docusate sodium [Senna Plus] 8.6-50 mg tablet 2 tab-cap PO TID Rx Instructions: for constipation tamsulosin 0.4 mg capsule 0.4 mg PO BID Rx Instructions: for bph ondansetron HCl 4 mg tablet 4 mg PO Q4H PRN (Reason: nausea and vomiting) atorvastatin 40 mg tablet 40 mg PO HS Patient Comments: TAKE ONE TABLET BY MOUTH AT BEDTIME FOR CHOLESTEROL acetaminophen 325 mg Tablet 325 mg PO Q6H PRN (Reason: Pain) Rx Instructions: prn mild pain clopidogrel 75 mg Tablet 75 mg PO QDAY metoclopramide HCl 5 mg Tablet 5 mg PO BID benzonatate 100 mg Capsule 100 mg PO Q8HR PRN (Reason: Cough) multivitamin with minerals Tablet 1 tab PO QDAY insulin aspart U-100 [Novolog U-100 Insulin aspart] 100 unit/mL Solution 1 sliding scale dose SUBCUT ACHS PRN (Reason: hyperglycemia) Rx Instructions: if 0-150=0 units; 151-200=2 units; 201-250=4 units; 251-300=6 units; 301- 350=8 units; 351-400=10 units; 401+=12 units. Notify md if BS<70 >400. pregabalin 150 mg Capsule 150 mg PO TID Salonpas 3.1-10-6 % Adhesive Patch,Medicated 1 patch TOPICAL TID PRN (Reason: Pain) Rx Instructions: may leave on area for up to 8 hrs/LOWER BACK ferrous sulfate 325 mg (65 mg iron) tablet 325 mg PO QDAY Qty: 30 0RF megestrol 400 mg/10 mL (40 mg/mL) Suspension 200 mg PO BID amlodipine 10 mg Tablet 10 mg PO QDAY Discontinued cranberry 400 mg capsule 425 mg PO QDAY Rx Instructions: administer with a meal. (Vaccinium macrocarpon) glucagon 1 mg kit 1 mg PRN Rx Instructions: 1 mg IM. Q15 mins PRN Hypoglycemia Episodes for BS of <60. Recheck BS per facrotocol. Max 2 doses. insulin glargine [Lantus Solostar U-100 Insulin] 100 unit/mL (3 mL) insulin pen 35 unit subcut BID Rx Instructions: Q morning and at bedtime. Hold if Blood Sugar is <200 [address]ify md if BS <70 or >400. insulin aspart U-100 [Novolog U-100 Insulin aspart] 100 unit/mL solution 15 unit subcut .wm Rx Instructions: With Meals. Hold if BS<200. Notify md if BS<70, >400. pantoprazole 20 mg tablet,delayed release (DR/EC) 20 mg PO QDAY Patient Comments: TAKE ONE TABLET BY MOUTH EVERY DAY HEARTBURN GASTRIC ACIDITY doxazosin 2 mg Tablet 2 mg PO HS sennosides 8.6 mg Tablet 8.6 mg PO QDAY albuterol sulfate [ProAir HFA] 90 mcg/actuation Hfa Aerosol Inhaler 2 puff INHALATION Q4H PRN (Reason: sob) Rx Instructions: inhalation aerosol solution 108(90 base) Pro-Stat Sugar Free 15 gram- 100 kcal/30 mL Liquid In Packet 30 ea PO QDAY losartan 25 mg tablet 25 mg PO QDAY Qty: 30 0RF cephalexin 500 mg capsule 500 mg PO BID Qty: 10 0RF cephalexin 500 mg capsule 500 mg PO BID Qty: 10 0RF Referrals: No Primary/Family,Physician [Primary Care Provider] - Patient/Caregiver Discharge Instructions Print Language: Lithuanian Stand Alone Forms: [facility] Award Info., Patient Portal Info Letter Discharge Order Discharge Orders: Discharge (Routine); Ordered 11/05/24 Ordered By: Karla Mims Quality Discharge Quality Measures VTE prophylaxis
--- NOTE | 2024-11-05 13:38 | PC.NURSE ---
pt. has a discharge orders and confirm with the Dr. Agosto about pt. tam need to be taken out or send pt. with tam. Per Dr. Agosto it is ok to discharge pt. with tam at this time.
--- NOTE | 2024-11-05 13:40 | PC.NURSE ---
Per MD due significant purulent material observed after initial Tam placement in ED pt. is ok to discharge with the tam.
== END 2024-11-05 16:16 | disposition skilled nursing facility (03) | DRG 871 ==
LOC: SERX 18:20 → SERHOLD 10-29 06:01 → S2SX 10-29 06:01 → S3SX 10-29 13:52
PROVIDERS: Student in an Organized Health Care Education/Training Program; Admitting Provider Internal Medicine Critical Care Medicine; Emergency Provider Emergency Medicine; Visit Provider Internal Medicine
DX: A41.9 Sepsis, unspecified organism (principal); G93.41 Metabolic encephalopathy; J18.9 Pneumonia, unspecified organism; J69.0 Pneumonitis due to inhalation of food and vomit; J96.01 Acute respiratory failure with hypoxia; G96.08 Other cranial cerebrospinal fluid leak; N39.0 Urinary tract infection, site not specified; E87.0 Hyperosmolality and hypernatremia; I13.0 Hypertensive heart and chronic kidney disease with heart failure and stage 1 through stage 4 chronic kidney disease, or unspecified chronic kidney disease; I50.30 Unspecified diastolic (congestive) heart failure; E87.20 Acidosis, unspecified; N17.9 Acute kidney failure, unspecified; R04.2 Hemoptysis; F05 Delirium due to known physiological condition; N18.32 Chronic kidney disease, stage 3b; R65.20 Severe sepsis without septic shock; K21.9 Gastro-esophageal reflux disease without esophagitis; J45.909 Unspecified asthma, uncomplicated; N40.0 Benign prostatic hyperplasia without lower urinary tract symptoms; D63.1 Anemia in chronic kidney disease; I25.10 Atherosclerotic heart disease of native coronary artery without angina pectoris; E11.22 Type 2 diabetes mellitus with diabetic chronic kidney disease; I95.9 Hypotension, unspecified; F03.90 Unspecified dementia, unspecified severity, without behavioral disturbance, psychotic disturbance, mood disturbance, and anxiety; E11.65 Type 2 diabetes mellitus with hyperglycemia; E78.5 Hyperlipidemia, unspecified; L22 Diaper dermatitis; E87.6 Hypokalemia; E11.649 Type 2 diabetes mellitus with hypoglycemia without coma; R04.0 Epistaxis; E11.42 Type 2 diabetes mellitus with diabetic polyneuropathy; E87.8 Other disorders of electrolyte and fluid balance, not elsewhere classified; Z66 Do not resuscitate; Z79.4 Long term (current) use of insulin; Z79.899 Other long term (current) drug therapy; Z78.1 Physical restraint status; Z51.5 Encounter for palliative care; Z79.02 Long term (current) use of antithrombotics/antiplatelets
CPT/HCPCS: 36415; 36600; 70450; 71045; 74176; 80053; 80069; 80307; 80320; 80329; 81001; 82040; 82042; 82140; 82728; 82784; 82803; 82945; 83036; 83540; 83550; 83605; 83735; 84100; 84145; 84157; 84295; 84443; 84484; 85025; 86140; 86403; 86592; 86788; 86789; 87070; 87081; 87086; 87205; 87498; 87530; 87811; 89051; 92526; 92610; 93005; 93306; 94002; 94003; 94640; 94664; 95816; 99291; A9270; J0295; J0330; J0360; J0696; J1630; J1643; J1815; J1885; J1940; J1956; J2060; J2310; J2470; J2704; J3010; J3480; J3490; J7030; J7050; J7070; J7120; G0480